=== PATIENT | male | born 1935 | race Caucasian/White ===

== ENCOUNTER 2019-01-25 12:49 | Inpatient (IN) | payer MEDICARE, OTHER ==
[~2019-01-25 12:49] MED LIST: ISOVUE-370 76%-LOCM 1 ML ONE; Iopamidol 370 76% 50 ML VIAL FS ONE
[2019-01-25 13:19] LABS: #Basophils 0.1 thou/uL (0.0-0.2); #Lymphocytes 0.2 thou/uL (1.20-3.40); #Monocytes 1.3 thou/uL (0.11-0.59); #Neutrophils 10.6 thou/uL (1.40-6.50); %Basophils 0.9 % (0.0-1.0); %Eosinophils 0.2 % (0.0-10.0); %Lymphocytes 1.9 % (21.0-51.0); %Monocytes 10.4 % (0.0-10.0); %Neutrophils 86.6 % (42.0-75.0); Hemoglobin 13.9 g/dL (14.0-18.0); Mean Corpuscular HGB CONC 32.7 g/dL (32.0-36.0); Mean Corpuscular Hemoglobin 30.9 pg (27.0-31.0); Mean Corpuscular Volume 94.6 fL (78.0-98.0); Platelet Count 173 thou/uL (130-400); RBC Distribution Width 13.7 % (11.5-14.5); Red Blood Cell (RBC) Count 4.49 mill/uL (4.70-6.10); White Blood Cell (WBC) Count 12.2 thou/uL (4.8-10.8)
[2019-01-25 13:35] LABS: ALT (SGPT) 34 U/L (8-55); AST (SGOT) 34 U/L (5-34); Albumin 4.1 g/dL (3.4-4.8); Alkaline Phosphatase 99 U/L (40-150); Anion Gap 15 mmol/L (10-20); BUN (Urea Nitrogen) 16 mg/dL (8.4-25.7); Bilirubin, Total 1.4 mg/dL (0.2-1.2); Calc. Creatinine Clearance 0 mL/min (70-130); Calcium 9.6 mg/dL (7.8-10.44); Carbon Dioxide 28 mmol/L (23-31); Chloride 102 mmol/L (98-107); Estimated GFR-MDRD 50; Globulin 2.6 g/dL (2.4-3.5); Glucose 117 mg/dL (83-110); Potassium 4.6 mmol/L (3.5-5.1); Protein, Total 6.7 g/dL (5.8-8.1); Sodium 140 mmol/L (136-145)
[2019-01-25 14:29] LABS: Bilirubin Negative (Negative); Blood, Urine Negative (Negative); Clarity CLEAR (Clear); Glucose, Urine (Dipstick) Negative (Negative); Leukocyte Moderate (Negative); Nitrite Negative (Negative); Protein, Urine (Dipstick) Trace mg/dL (Neg-Trace); Specific Gravity, Urine 1.021 (1.002-1.036)
[2019-01-25] MEDS ORDERED: Morphine 4 MG/ML VIAL ONE (14:31)
[2019-01-25 14:32] LABS: Bacteria/HPF 1+ HPF (None Seen); RBC/HPF 0-3 HPF (0-3); Squamous Epithelial None Seen HPF (0-3); WBC/HPF 21-50 HPF (0-3)
[2019-01-25 14:41] LABS: Hyaline Casts/LPF 4-6 HYALINE CAST LPF (0-3 Hyaline)
[2019-01-25] MEDS ORDERED: cefTRIAXone\\ROCEPHIN 1 GM VIAL ONE (15:35)
[2019-01-25] MEDS ORDERED: Metoclopramide HCl 10 MG/2 ML VIAL ONE ×2 (16:09→16:15)
--- NOTE | 2019-01-25 16:20 | CT ---
CT ABDOMEN AND PELVIS WITH IV CONTRAST 01/25/2019 CLINICAL INFORMATION: Left lower abdominal pain. History of colon cancer and colon resection COMPARISON: 05/05/2014 Technique: Multiple contiguous axial CT images are obtained through the abdomen and pelvis with IV contrast. Cor onal reformatted images are provided. FINDINGS: Lower Chest: Lungs are clear. There is dense calcification the mitral valve annulus. A small amount o f fluid is seen within the right lower posterior mediastinum. This. The evidence of a hiatal hernia with herniation of fat in the posterior mediastinum. This is a stable finding. Vessels: Vascular calcifications are seen abdominal aorta and involving the iliac arteries. Abdomen: Portal vein:Patent Gallbladder: Gallbladder is distended measuring 11 cm in length. No pericholecystic inflammatory swan ges are appreciated in the gallbladder wall is imperceptible on this exam. Liver: Several small subcentimeter too small to characterize hypodense lesions are seen also partiall y visualized the prior nonenhanced CT exam but were seen on the postcontrast a study on 12/26/2013 is statistically likely represent tiny cysts. Pancreas: within normal limits. Spleen: within normal limits. Adrenals: within normal limits. Kidneys: The right kidney demonstrates a subcentimeter too small to characterize hyperinflation later al aspect midportion right kidney also seen on prior study in 2013. There is moderate left hydronephrosis and hydroureter with several calculi seen within the mid left ureter. Most proximal calculus measures approximately 7 mm in greatest dimension. The most distal calculus measures 4 mm, and this is at the site of caliber change from a dilated proximal and mid ure ter to a normal caliber distal left ureter . There is left perinephric stranding present. Hypodense lesion within the mid portion left kidney is again seen most compatible with a cyst. Peritoneum: No ascites or free air; no fluid collection. Bowel: There is evidence of a total colectomy with Roberts's pouch seen. Right lower quadrant ostomy is identified. There is a stomal hernia with loops of small bowel herniated into the ostomy. No bowel obstruction is present. Mesentery and Retroperitoneum: No enlarged mesenteric or retroperitoneal lymph nodes. Abdominal Wall: Right lower quadrant ostomy with stomal hernia is present. There is midline defect in the ventral abdominal wall, this doesn't appear to be covered with peritoneum. Pelvis: Reproductive Organs: No pelvic masses. Pelvis within normal limits. Bladder: Partially distended and grossly normal in appearance. Bones: Multilevel degenerative changes in the lumbar spine IMPRESSION: 1. Moderate left hydronephrosis and tortuous dilated left ureter with multiple left ureteral calculi seen in the mid left ureter with obstruction at the level of the 4 mm calculus located at the junction of the mid and distal left ureter. 2. Left perinephric stranding. 3. Left renal cyst with subcentimeter too small to characterize hyperdense lesion right kidney. Next are stable subcentimeter hypodense lesions in the liver statistically likely represent cysts. 4. Evidence of colectomy with right lower quadrant ostomy with evidence of a stomal hernia containing lo ops of small bowel, but no small bowel obstruction is appreciated. 4. Small amount of fluid seen in the right aspect posterior mediastinum. There does appear to be maxine iation of fat from the mesentery into the posterior mediastinum.
[2019-01-25] MEDS ORDERED: Levofloxacin 500 mg/D5W 100 ml Premix Bag ONE (17:22)
[2019-01-25] MEDS ORDERED: Morphine 4 MG/ML VIAL SLOW IVP PRN (18:02)
[2019-01-25] MEDS ORDERED: Morphine 2 MG/ML SYRINGE SLOW IVP PRN (18:02)
[2019-01-25] MEDS ORDERED: Sodium Chloride 0.9% 1,000 ML IV SCH (18:15)
[2019-01-25 18:43] LABS: INR-International Normal Ratio 1.1; PTT 28.2 SEC (22.9-36.1); Prothrombin Time 13.8 SEC (12.0-14.7)
[2019-01-25] MEDS ORDERED: Acetaminophen 500 MG TAB ONE ×2 (18:45→18:46)
--- NOTE | 2019-01-25 18:52 | RAD ---
AP VIEW CHEST: 01/25/19 HISTORY: Right sided flank pain. AP view chest is obtained on 01/25/19. Comparison made to previous exam from 01/04/14. AP view chest demonstrates calcification and ectasia of the aorta. The lungs are well aerated. No moe dence of active intrathoracic disease seen. No evidence of effusions, pneumonia or pneumothorax seen. IMPRESSION: Unremarkable AP view chest. POS: [facility]
--- NOTE | 2019-01-25 18:54 | RAD ---
TWO VIEWS ABDOMEN 01/25/19 HISTORY: Preoperative abdominal radiograph. AP view abdomen is obtained. The abdominal gas pattern is nonspecific. The right ureter and kidney are visualized. The left dilat ed ureter is difficult to visualize but appears to be quite tortuous and dilated. Previously noted left ureteral calculi noted on CT from earlier in the day is not definitively visual ized. IMPRESSION: Continued difficulty in visualizing the dilated and tortuous left ureter. POS: [facility]
--- NOTE | 2019-01-25 19:09 | HP ---
PRIMARY CARE PHYSICIAN: . CHIEF COMPLAINT: "I started having severe left side pain last night." HISTORY OF PRESENT ILLNESS: Mr. Lee is a pleasant 83-year-old gentleman, who has a history of hypertension and hyperlipidemia. He was in his usual state of health until last night around 11:00 p.m., he says he woke up with the sudden onset of severe left flank pain. He says the pain got to be about a 10/10. He says he has had these pains off and on, but usually it will last a few hours and then go away especially if he would lay on his left side, but this time it did not. He also says he had some dry heaving with it as well and as a result, he came to the ER for evaluation. He had a CT scan done, which showed an obstructing left ureteral stone as well as some left perinephric stranding and urinalysis was consistent with urinary tract infection. He denies having any dysuria. No fevers, no chills, and no blood in the urine. His only other complaint is having some pain around his stoma, which he says is kind of like a burning sensation, but his bowels have been moving okay. REVIEW OF SYSTEMS: All systems were reviewed and are negative except for that mentioned in history of present illness. PAST MEDICAL HISTORY: Significant for hypertension, hyperlipidemia, atrial fibrillation, and colon cancer. PAST SURGICAL HISTORY: He said he has had a colon biopsy. He had a colectomy, but he says it was not from cancer. It was due to an infection. Also had an angioplasty in 1990. ALLERGIES: NO KNOWN DRUG ALLERGIES. SOCIAL HISTORY: He is . He has 4 children of his own and his has 4 children. He drinks about a glass or two wine a day. He is a former smoker, he quit in 1990. Prior to that he smoked for about 40 years and a pack per day. He would like to be a full code and his is his surrogate decision maker. FAMILY HISTORY: He said his mother had Meniere disease and also has a history of COPD in the family in one of his daughter and his other daughter had a massive IN, but she is still living. MEDICATIONS: Include aspirin 81 mg daily, atorvastatin 80 mg once a day, trazodone 150 mg one-half tablet daily, amiodarone 200 mg daily, Astelin nasal spray one spray intranasally twice a day, and pantoprazole 40 mg twice a day. PHYSICAL EXAMINATION: GENERAL: He is alert and oriented. He appears to be in no acute distress. He is well developed and well nourished. VITAL SIGNS: Blood pressure was 110/74, heart rate 75, respiratory rate of 18, and temperature is 98.2. HEENT: Pupils are equal, round, and reactive. Extraocular muscles are intact. His sclerae is anicteric. Throat; there is no erythema, no exudates. NECK: No adenopathy no bruits. LUNGS: They are clear to auscultation. There is no wheezing. No rales. No rhonchi. CARDIOVASCULAR: He had normal S1 and S2. I did not appreciate an S3 or S4. No murmurs, clicks, or rubs. ABDOMEN: Soft. He does have a midline ventral hernia as well as a hernia just lateral to his stoma. There was no induration or erythema. He has good bowel sounds bilaterally and there is no organomegaly. EXTREMITIES: He has no calf tenderness. No joint effusions. No edema. NEUROLOGIC: The exam is grossly nonfocal with his muscle strength being 5/5 in both his upper and lower extremities. SKIN AND INTEGUMENT: There is no skin changes. No rash. LABORATORY DATA: His white blood cell count is 12.12, hemoglobin 13.9, hematocrit is 42.4, and platelet count is 173. Sodium 140, potassium 4.6, chloride is 102, CO2 is 28, BUN of 16, creatinine 1.37, glucose is 117. Urinalysis shows moderate leukocyte esterase, 21 to 50 wbcs and 1+ bacteria and again his CT scan was significant for a left 4 cm ureteral stone. There is some evidence of hydronephrosis and this is an obstructing stone and there was some left perinephric stranding. PLAN/ASSESSMENT: 1. This is an 83-year-old gentleman, who presents to the emergency room with a left pyelonephritis, likely as a result of an obstructing left ureteral stone. He will be admitted to the Medical Service. He will be started on IV antibiotics. Likely we can begin with Levaquin and Rocephin. Cultures-should have been done from the emergency room and we will also consult Urology and he will be left n.p.o. in the event that he requires surgical extraction of the stone. 2. Hypertension. Since he will be n.p.o., we will be treating his blood pressure with p.r.n. medications. 3. Atrial fibrillation. He appears to not be on any anticoagulation. We will hold the amiodarone for now and start this once this is reasonable to restart. 4. He will be placed on DVT and GI prophylaxis. Job ID: [id number]
[2019-01-25] MEDS ORDERED: Acetaminophen 325 MG TAB PO PRN (20:44)
[2019-01-25] MEDS ORDERED: Ondansetron PF 4 MG/2 ML Vial IVP PRN (20:44)
[2019-01-25] MEDS ORDERED: Ondansetron ODT 4 MG TAB PO PRN (20:44)
[2019-01-25] MEDS ORDERED: hydrALAZINE 20 MG/ML VIAL SLOW IVP PRN (20:44)
--- NOTE | 2019-01-25 20:47 | CON ---
DATE OF CONSULTATION: 01/25/2019 REASON FOR CONSULTATION: Left ureteral calculi. HISTORY OF PRESENT ILLNESS: Mr. Lee is a pleasant 83-year-old male, who is followed by Dr. Romo. The patient lived locally, then moved out of area and presented for primary care establishment with Dr. Gonzales just few weeks ago. He presents with 1-day history of left flank pain. As he is known to have history of kidney stones, he felt that this was due to recurrence of his ureteral calculi, therefore presented to the emergency room. His pain initially is 10/10. The patient is currently resting very comfortably after pain medication provided with morphine 4 mg x1. He has been provided Levaquin and Rocephin by the emergency room. His vital signs are stable. He is afebrile, he is nontoxic appearing. He denies nausea, vomiting, fever, or chills. Denies gross hematuria. Denies obstructive urinary symptoms. His chart was reviewed in the [facility] ([place] system, he was previously followed by Dr. Potter for history of recurrent ureteral calculi. He has a history of distal ureteral stricture, likely due to compromised vascular supply from his prior colon surgery and required ureteral stent and staged ureteral dilatation, ureteroscopy, laser lithotripsy. This was performed back in 2011. PAST MEDICAL HISTORY: . Include coronary artery disease status post angioplasty. No prior stent. No prior SC. History of colon cancer, removed, status post resection with chemo in 1998 with no recurrence. 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 History of incisional ventral hernia, psoriasis, left ureteral stricture, with history of ureteral stones history of left colon stricture, arthritis, history of rib fractures, hidradenitis of the axilla. SURGICAL HISTORY: Includes sigmoid colon resection, status post chemo, six weeks, 1998; angioplasty one vessel, no SC in 1990; colonoscopy by Dr. Franco with known history of anastomotic stricture; polypectomy, 2011; EGD; esophageal stricture dilatation; colonoscopy, August 2013. [facility] system reviewed demonstrating he underwent in December [address] Potter, cysto retrograde ureteroscopy, laser lithotripsy, stent placement due to distal left ureteral stricture; February 2012, he underwent cystoscopy, ureteroscopy, laser lithotripsy, stent placement, dilation of ureteral stricture. FAMILY HISTORY: Positive for hearing loss. No history of diabetes. No history of prostate cancer. SOCIAL HISTORY: Denies tobacco abuse. Occasional liquor, scotch 6 to 9 ounces a day. He is , lives with his in a private residence. He smokes 20 to 25 cigarettes a day from 1954 to 1978. HOME MEDICATIONS: Include baby aspirin, trazodone 150 mg half a tablet per night, atorvastatin, propranolol, amiodarone 200 mg one p.o. daily, azelastine, tramadol. Prior history of Urocit-K b.i.d., and Zyrtec p.r.n. ALLERGIES: NO KNOWN DRUG ALLERGIES. REVIEW OF SYSTEMS: Ten-point review of systems as above, otherwise noncontributory. PHYSICAL EXAMINATION: VITAL SIGNS: Stable. He is afebrile. Blood pressure is 136/85, heart 75, and respiratory rate 20, no fever. GENERAL: The patient appears to be in no acute distress. HEENT: Grossly unremarkable. HEART: Regular rate. LUNGS: Clear. ABDOMEN: Soft, nontender, and nondistended. There is a significant ventral incisional hernia in the epigastric region, which is reducible with good fascial defect. Colostomy with stool and air. : Meatus is unremarkable. Testes are descended. RECTAL: CALEB is difficult due to his body habitus. No gross nodularity. However, CALEB is suboptimal. There is no CVA tenderness on physical exam. EXTREMITIES: No cyanosis, clubbing, or edema. PERTINENT LABORATORY DATA: White count 12, hemoglobin 13, and platelet 173; 86 segs. Creatinine is 1.37. Baseline creatinine is 1.0. PSA in October 2012 is 1.07. Calcium, normal limits 9.6. UA demonstrates yellow clear urine, moderate leukocyte, 0 to 3 rbc's, 20 to 50 wbc's, no epithelials, 1+ bacteria. Culture has been ordered. CT of the abdomen and pelvis with contrast dated January 25, 2019, demonstrates left hydroureteronephrosis, moderate. There are several calculi in the mid to distal ureter measuring largest 7 mm. There are approximately 3 to 4 other stones measuring 2 to 4 mm each. Distal ureter from the level of the stone is decompressed consistent with ureteral stricture history. The right kidney demonstrates no evidence of hydronephrosis or renal lithiasis. There are symmetric nephrogram on CT. Per my review, CT prostate volume is about 30 to 35 g. Mildred pouch, total colectomy noted. Left renal cyst, subcentimeter, too small to characterize. Hypodense lesion in the right kidney. Hypodense lesion of the left kidney compatible with cyst. IMPRESSION AND PLAN: Mr. Lee is a pleasant 83-year-old male with history of coronary artery disease, colon cancer, history of anastomotic stricture, status post diverting colostomy, presents with left flank pain due to mid to distal ureteral calculi with known history of ureteral stricture. History of calcium stones with history of ureteral stricture, status post dilatation ureteroscopy, [address] Potter. The patient presents due to flank pain, which is currently well controlled, he is nontoxic appearing. His prior urine culture in the remote past demonstrates Pseudomonas sensitive to quinolones and Zosyn, cefepime and ceftazidime. He has been provided Levaquin by the ER. We will continue to cover with broad-spectrum antibiotics. He is currently resting comfortably and has been added on for cysto retrograde stent dilatation of the stricture tomorrow. I did conference with Interventional Radiology, if unable to stent. He will undergo nephrostomy tube placement. We will hold aspirin for possible nephrostomy tube consideration if unable to stent. NPO after midnight. Job ID: [id number] [facility]
[2019-01-25] MEDS: Sodium Chloride 0.9% 1,000 ML IV SCH (21:30)
[2019-01-25 21:35] VITALS: BMI 30.4
[2019-01-26 04:42] LABS: Anion Gap 13 mmol/L (10-20); BUN (Urea Nitrogen) 17 mg/dL (8.4-25.7); Calc. Creatinine Clearance 50 mL/min (70-130); Calcium 8.6 mg/dL (7.8-10.44); Carbon Dioxide 23 mmol/L (23-31); Chloride 106 mmol/L (98-107); Estimated GFR-MDRD 48; Glucose 102 mg/dL (83-110); Potassium 4.1 mmol/L (3.5-5.1); Sodium 138 mmol/L (136-145)
[2019-01-26 05:07] LABS: Hemoglobin 11.5 g/dL (14.0-18.0); Lymphocytes 7 % (21-51); MDiff Complete? YES; Mean Corpuscular HGB CONC 32.8 g/dL (32.0-36.0); Mean Corpuscular Hemoglobin 31.3 pg (27.0-31.0); Mean Corpuscular Volume 95.5 fL (78.0-98.0); Mean Platelet Volume 8.5 fL (7.4-10.4); Monocytes 9 % (0-10); Neutrophil 84 % (42-75); Platelet Count 135 thou/uL (130-400); Platelet Morphology Comment Appears Adequate; RBC Distribution Width 13.7 % (11.5-14.5); Red Blood Cell (RBC) Count 3.66 mill/uL (4.70-6.10); White Blood Cell (WBC) Count 8.2 thou/uL (4.8-10.8)
[2019-01-26] MEDS: Sodium Chloride 0.9% 1,000 ML IV SCH ×3 (08:30→23:16)
[2019-01-26] MEDS ORDERED: Enoxaparin Sodium 40 MG/0.4 ML SYRINGE SC SCH (09:00)
--- NOTE | 2019-01-26 09:11 | PRG ---
DATE OF SERVICE: 01/26/2019 SUBJECTIVE: The patient states that his pain is adequately controlled. Denies chills. OBJECTIVE: VITAL SIGNS: T-max of 100, T-current 99, heart rate 82, respiratory rate 16, O2 saturation 93, blood pressure 104/58. ABDOMEN: Soft. No rigidity. No rebound. LABORATORY DATA: White count is decreased from 12 to 8, hemoglobin 11, 135 platelet, 84 segs. Creatinine is 1.4, yesterday 1.3. Coagulation profile is within normal limits. He is currently on Rocephin and Levaquin. I did hold his Lovenox this morning for cysto stent, possible nephrostomy tube, if unable to access his kidney as he has history of ureteral stricture. Blood culture negative thus far. Urine culture pending. Previous in 2014, had Pseudomonas in his urine, which was sensitive to Levaquin, ceftazidime, Zosyn. IMPRESSION AND PLAN: Mr. Lee is an 83-year-old male, previously followed by the [facility] for history of recurrent ureteral calculi with known history of left mid to distal ureteral stricture requiring dilatation in the past. He presents with multiple left mid ureteral calculi just proximal to the recurrent ureteral stricture measuring 7 mm, 3 to 4 other stones measuring 2 to 4 mm each. His UA suspicious for UTI, currently on Rocephin and Levaquin. He is n.p.o. for cysto, attempted stent placement, possible dilatation, possible nephrostomy tube. If unable to access to the ureter, via retrograde ,nephrostomy tube will be performed. Cardiology consultation for clearance as he will require laser lithotripsy, ureteroscopy for prolonged surgical general anesthesia time. He will requires urinary diversion to proceed today as he presents with infection and obstructing stone. The patient is n.p.o. Job ID: [id number] [facility]
[2019-01-26] MEDS ORDERED: Ondansetron PF 4 MG/2 ML Vial ONE (11:23)
[2019-01-26] MEDS ORDERED: PROPOFOL 200 MG/20 ML VIAL ONE (11:23)
[2019-01-26] MEDS ORDERED: Dexamethasone 20 MG/5 ML VIAL ONE (11:23)
[2019-01-26] MEDS ORDERED: PHENYLEPHRINE-NS 100 MCG/ML 10 ML SYRINGE ONE (11:23)
[2019-01-26] MEDS ORDERED: Succinylcholine Chloride 20 MG/ML 10 ml SYRINGE FS ONE (11:23)
[2019-01-26] MEDS ORDERED: Lidocaine 1% PF 5 ML VIAL ONE (11:23)
--- NOTE | 2019-01-26 12:54 | CON ---
DATE OF CONSULTATION: PRIMARY CARE DOCTOR: Dr. Gonzales, [address], [place]. PRIMARY HEAVY EQUIPMENT OPERATOR APPRENTICE: The patient's primary cloth tearer is going to be Alma Rosa Lyons MD UROLOGIST: The patient's urologist is Natalie Guillen DO REASON FOR CARDIOLOGY CONSULT: History of CAD and abnormal EKG. HISTORY OF PRESENT ILLNESS: Mr. Lee is a very present 83-year-old male with a significant history of coronary artery disease with angioplasty in the 1990, hypertension, hyperlipidemia, and colon cancer with colostomy. He was doing well until the night before yesterday, night of January 24. He started having pain at the left flank area and he was found to have a viral nephritis and the patient is going to have a procedure today by Dr. Guillen. Cardiology consult was ordered due to the 12-lead EKG show right bundle branch block. The patient has a history of coronary artery disease with angioplasty in 1990. He has seen a cloth tearer in [place], [place]. Last followup was two and half years ago. Since then, he moved to the [place], [place]. Since, he has not have any cardiac complaints, he have not found any cloth tearer here. He also had a history of postop atrial fibrillation with rapid ventricular response in 2015 when he had a colon resection for colon cancer. Since then, he has not had atrial fibrillation and he has been on the aspirin 81 mg once a day with amiodarone 200 mg once a day. He has had a stress test about 10 years ago, which was normal per the patient. Since last 3 months, he has not had any chest pain, heaviness, tightness, shortness of breath, dizziness, lightheadedness, or any other cardiac complaints. PAST MEDICAL HISTORY: 1. Hypertension. 2. Hyperlipidemia. 3. Postop atrial fibrillation in 2016. He has been on aspirin 81 mg. 4. Colon cancer. 5. Coronary artery disease with angioplasty in 1990. PAST SURGICAL HISTORY: Colon resection x2 in 1997 and 2015. Since then, he had a colectomy. He had a cataract surgery last Saturday. FAMILY HISTORY: The patient's one of the daughters has a myocardial infarction about 6 months ago at the age of 52. Otherwise, he does not have any significant cardiac related medical history in his family. SOCIAL HISTORY: He is . He has 4 children they are living well. He is an ex-smoker, quit in 1990. He has a few glass of wine every night. He does not do regular exercise, but he continue working at the [employer]. He drinks 1 cup of coffee a day. Otherwise, he does not take any caffeine daily. ALLERGIES: HE HAS NO KNOWN DRUG ALLERGIES. HOME MEDICATIONS: 1. Trazodone 75 mg once a day at night. 2. Protonix 40 mg once a day. 3. Azelastine 2 nasal spray every 6 hours as needed. 4. Atorvastatin 80 mg once a day. 5. Aspirin 81 mg once a day. 6. Amiodarone 200 mg once a day. 7. 1 tablet daily. REVIEW OF SYSTEMS: A 12-point review of systems was negative unless otherwise mentioned in the HPI. The patient has an intermittent lightheadedness when he get up quick. PHYSICAL EXAMINATION: VITAL SIGNS: Blood pressure 107/58, temperature 98.5, pulse is 75, respiratory rate 18, and O2 saturation 93% with room air. GENERAL: The patient is alert and oriented x4, not in acute distress. The patient denied any pain at this moment. HEENT: Head, normocephalic and atraumatic. Eyes, extraocular muscle movement intact. ENT and mouth, oral and nasal mucosa moist without lesion. NECK: Supple. Normal range of motion. No JVD. RESPIRATORY: Clear to auscultate bilaterally. No wheezing, rales, or rhonchi noted. CARDIOVASCULAR: Regular rate and rhythm. Normal S1 and S2. There are no S3 or S4. No significant murmur, hives, or thrills noted. 2+ pulses in bilateral upper and lower extremities. No edema in lower extremities. ABDOMEN: Bowel sounds are present. The patient had a colectomy in right lower quadrant. SKIN: Warm and dry. No lesion, rash, erythema noted. MUSCULOSKELETAL: The patient able to move all extremities without difficulty. The patient denied any claudication. NEUROLOGIC: The patient is alert and oriented x4. Nonfocal. PSYCHIATRIC: The patient's mood is appropriate. LABORATORY DATA: WBC 8.2, hemoglobin 11.5, hematocrit 34.9, and platelet 135. PT of 13.8 and INR 1.1. Sodium 138, potassium 4.1, BUN 17, creatinine 1.42, AST 34, ALT 34, lipase 13. Urinalysis showing moderate wbc and urine bacteria, hyaline cast and the patient's 12-lead EKG shows normal sinus rhythm with right bundle branch block with heart rate of 77 beats. Chest x-ray shows no acute cardiopulmonary change. ASSESSMENT AND PLAN: 1. Pyelonephritis. The patient is going to have this procedure by Dr. Guillen today around noon. The patient has been n.p.o. The patient has denied any pain or discomfort to his abdomen. He has been on the IV antibiotic and also he is on normal saline 100 mL an hour. 2. Right bundle branch block. He has not seen any cloth tearer here in [facility]. More than two years, there were no EKG comparison, EKG prior to this 12-lead EKG. At this moment, the patient denied any cardiac complaints. Since he had a stress test about 10 years ago, he may be beneficial for him to have another stress test as outpatient to check the patient's cardiac status in this moment. 3. Coronary artery disease with a history of angioplasty in 1990. He has a stress test about 10 years ago showed normal. He has been on aspirin and atorvastatin, but not beta debbie at this moment, possible due to hypotension. We would like to continue to monitor. 4. History of postop atrial fibrillation with rapid ventricular response in 2016. Per the patient, he has not had any atrial fibrillation since then, 12-lead EKG this time in this admission showed a sinus rhythm. We would like to continue to monitor, but we would like to resume aspirin 81 mg once a day with amiodarone 200 mg once a day, once the patient is cleared by urologist. 5. Hypertension. At this moment, the patient is hypotensive, although the patient is not on any blood pressure medicine. We would like to continue to monitor. 6. Acute kidney injury insufficiency. He denies any doctor told him he has any kidney issue before, so possible this is due to the mild dehydration. We would like to continue to monitor at this moment. Thank you very much for Cardiology Service to participate in the care of this patient. We will follow along the patient's care team and make further recommendations as appropriate. Job ID: [id number]
[2019-01-26] MEDS ORDERED: Fentanyl 100 MCG/2 ML VIAL ONE (14:03)
[2019-01-26] MEDS ORDERED: cefTRIAXone\\ROCEPHIN 1 GM VIAL ONE (14:10)
[2019-01-26] MEDS ORDERED: Sodium Chloride 0.9% 100 ML ONE (14:10)
[2019-01-26] MEDS ORDERED: Lidocaine 2% Jelly 5 ML TUBE ONE (14:13)
[2019-01-26] MEDS ORDERED: Iothalamate Meglumine 60% 50 ML VIAL FS ONE (14:13)
[2019-01-26] MEDS ORDERED: cefTRIAXone\\ROCEPHIN 1 GM in Sodium Chloride 0.9% 100 ML IVPB SCH (15:00)
[2019-01-26] MEDS ORDERED: Hyoscyamine Sulfate SL 0.125 mg Tablet ONE (15:12)
[2019-01-26] MEDS ORDERED: Promethazine HCl 25 MG/ML VIAL SLOW IVP PRN (15:13)
[2019-01-26] MEDS ORDERED: Ondansetron HCl/PF 4 MG/2 ML Vial IVP PRN (15:13)
[2019-01-26] MEDS ORDERED: Promethazine HCl 25 MG/ML VIAL IM PRN (15:13)
[2019-01-26] MEDS ORDERED: HYDROcodone/Acetaminophen 5/325 mg Tablet PO PRN ×2 (15:15)
--- NOTE | 2019-01-26 15:15 | RAD ---
EXAM: XR IVP Retrograde PROVIDED CLINICAL HISTORY: Left hydronephrosis and hydroureter in a patient with left ureteral calculi and history of ureteral s trictures. COMPARISON: CT abdomen on 01/25/2019 FINDINGS/IMPRESSION: 5 intraoperative fluoroscopic images of the abdomen are provided. The mid left ureteral calculi are d ifficult to evaluate on fluoroscopic training and development officer image. Subsequent images demonstrate surgical instrument overlying the urinary bladder with catheter present within the left ureter. Left retrograde urogram d emonstrates dilatation of the ureter proximal to the level of the lower sacroiliac joint with moderate degree of left hydronephrosis. No contrast is seen within the distal left ureter. Final imag e demonstrates a ureteral stent in place with proximal portion overlying the left renal collecting system and distal portion overlying the urinary bladder. Correlation with intraoperative findings is recommended.
--- NOTE | 2019-01-26 15:34 | PDOC.CTH ---
Cardiology Progress Note - Objective Vital Signs Temp Pulse Resp BP Pulse Ox 01/26/19 08:00 93 L 01/26/19 07:35 98.5 F 75 18 107/58 L 93 L Admit Weight 194 lb 4 oz Weight 194 lb 4 oz 01/25/19 01/26/19 01/27/19 06:59 06:59 06:59 Output Total 275 Balance -275 - Labs Result Diagrams: 01/26/19 03:50 01/26/19 03:50 - Assessment/Plan <Addendum> The pt will f/u with Dr Lyons' office within 1 wk with Stress test same day.
[2019-01-26] MEDS: Tamsulosin HCl 0.4 MG CAP PO SCH (16:19)
--- NOTE | 2019-01-26 17:13 | PDOC.PN ---
- Subjective Encounter Start Date: 01/26/19 Encounter Start Time: 17:09 Mr. Lee was seen today in follow-up of Nephrolithiasis and Pyelonephritis. He says he feels fine. He is sitting up in bed eating. He denies any pain. He denies chest pain or shortness of breath. - Objective Resuscitation Status - Order Detail: 01/25/19 17:38 Resuscitation Status Routine Resuscitation Status: FULL: Full Resuscitation MAR Reviewed: Yes Vital Signs & Weight: Vital Signs (12 hours) Temp Pulse Resp BP Pulse Ox 01/26/19 16:30 97.5 F L 70 18 140/65 96 01/26/19 16:00 97.6 F 73 16 139/72 92 L 01/26/19 08:00 93 L 01/26/19 07:35 98.5 F 75 18 107/58 L 93 L Weight Admit Weight 194 lb 4 oz Weight 194 lb 4 oz I&O: 01/25/19 01/26/19 01/27/19 06:59 06:59 06:59 Output Total 275 Balance -275 Result Diagrams: 01/26/19 03:50 01/26/19 03:50 Phys Exam - Physical Examination HEENT: PERRLA Respiratory: no wheezing, no rales, no rhonchi, clear to auscultation bilateral Cardiovascular: RRR, no significant murmur, no rub Gastrointestinal: soft, non-tender, no distention, positive bowel sounds Musculoskeletal: no edema Dx/Plan (1) Pyelonephritis Code(s): N12 - TUBULO-INTERSTITIAL NEPHRITIS, NOT SPCF ACUTE OR CHRONIC Status: Acute (2) Nephrolithiasis Status: Acute (3) Hypertension Code(s): I10 - ESSENTIAL (PRIMARY) HYPERTENSION Status: Chronic (4) Atrial fibrillation Code(s): I48.91 - UNSPECIFIED ATRIAL FIBRILLATION Status: Chronic - Plan * Pyelonephritis- continue Levaquin and Rocephin- urine culture is growing presumptive Pseudomonas * Nephrolithiasis- he is s/p ureteral STENT placement * HTN-blood pressure is stable. * AFIB- heart rate is stable
[2019-01-26] MEDS ORDERED: Promethazine 25 MG TAB PO PRN (18:05)
--- NOTE | 2019-01-26 21:35 | OP ---
DATE OF PROCEDURE: 01/26/2019 PREOPERATIVE DIAGNOSES: 1. An 83-year-old male with history of urolithiasis, previously followed by Dr. Wagoner, and left ureteral stricture presents with left flank pain. 2. CT demonstrating multiple left ucy-do-mxhnxr ureteral calculi focus about 4, measuring 8 mm, 5 mm, 4 mm, and 3 mm respectively, recurrent ureteral stricture postop index number. 3. Urinalysis suspicious for urinary tract infection. Culture pending. POSTOPERATIVE DIAGNOSES: 1. An 83-year-old male with history of urolithiasis, previously followed by Dr. Wagoner, and left ureteral stricture presents with left flank pain. 2. CT demonstrating multiple left yka-xr-laopsf ureteral calculi focus about 4, measuring 8 mm, 5 mm, 4 mm, and 3 mm respectively, recurrent ureteral stricture postop index number. 3. Urinalysis suspicious for urinary tract infection. Culture pending. PROCEDURES: 1. Cystoscopy. 2. Left retrograde pyelogram. 3. A 6 x 30 double-J ureteral stent placement. SURGEON: Natalie Guillen DO ANESTHESIA: General. COMPLICATIONS: None apparent. DISPOSITION: To recovery room in stable condition. INDICATIONS FOR PROCEDURE AND HISTORY: Mr. Lee is an 83-year-old male who presented to the emergency room due to left flank pain. His UA was suspicious for UTI. He has been on Levaquin, Rocephin, and he is hemodynamically stable. He has mild renal insufficiency with a creatinine of 1.4. He presents today for cysto and left ureteral stent placement. As he is known to have a ureteral stricture again visualized on recent CT scan, he was informed if I am unable to perform retrograde stent, nephrostomy tube will be performed. He desires to proceed. Elective ureteroscopy laser lithotripsy after treatment of his UTI with negative urine culture was advised. I did initiate cardiology consult as he is known to have coronary artery disease. Risks, complications and indications for the patient was reviewed including but not limited to, bleeding, pain, infection, injury to adjacent organs, urosepsis. DESCRIPTION OF PROCEDURE: After an informed consent and sign, the patient taken to the operating room, placed in a dorsal lithotomy position with the genital area prepped and draped in the usual surgical sterile fashion. Bilateral IRVIN hose and SCDs were provided. Broad-spectrum antibiotics were given. A 21-Niuean cystoscope was utilized for cystoscopy, which demonstrated normal anterior posterior urethra. 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 Bladder was entered, which demonstrated normal bladder mucosa. The right UO was easily identified. The left UO was difficult to identify. This is consistent with history of distal ureteral stricture. The UO was very subtle, however with observation, we were able to certainly identify the left UO and a 0.35 Sensor wire was negotiated. This did pass without significant issue to the sqa-jh-vedflbtj ureter and we were able to pass an open-ended catheter proximal to the stricture. There was some resistance proximally consistent with a tortuous proximal ureter. A retrograde pyelogram had to be performed to delineate the collecting system and a tortuous J hooking of the proximal ureter. We did pass a 0.35 Sensor wire , required manipulation, able to pass the wire into the upper pole. The open-ended catheter was passed to the level of the renal pelvis. Despite putting an open-ended catheter, the corkscrewing remained in morphology. A 6 x 30 double-J ureteral stent was passed as the ureteral length appeared to be long due to tortuosity and chronic dilatation. A 6 x 30 double-J ureteral stent was passed and the proximal coil was seen in the upper pole and the distal coil with adequate redundancy in the bladder. I did place a 16-Niuean Waters catheter to gravity, but had bladder drainage. If no issues overnight, we will remove Waters in the morning. He is to continue his antibiotic regimen until final culture sensitivity identified. He is known to have coronary artery disease, right bundle-branch block, status post angioplasty, cardiac clearance, is advised to proceed with ureteroscopy, laser lithotripsy as he will require longer general anesthesia time. Job ID: [id number] [facility]
[2019-01-26] MEDS: traZODone HCl 150 MG TAB PO PRN (23:35)
[2019-01-27 04:34] LABS: #Lymphocytes 0.4 thou/uL (1.20-3.40); #Monocytes 0.4 thou/uL (0.11-0.59); #Neutrophils 4.3 thou/uL (1.40-6.50); %Eosinophils 0.4 % (0.0-10.0); %Lymphocytes 7.2 % (21.0-51.0); %Monocytes 8.6 % (0.0-10.0); %Neutrophils 83.9 % (42.0-75.0); Mean Corpuscular HGB CONC 33.2 g/dL (32.0-36.0); Mean Corpuscular Volume 96.4 fL (78.0-98.0); Mean Platelet Volume 8.7 fL (7.4-10.4); Platelet Count 121 thou/uL (130-400); RBC Distribution Width 13.5 % (11.5-14.5); Red Blood Cell (RBC) Count 3.44 mill/uL (4.70-6.10); White Blood Cell (WBC) Count 5.2 thou/uL (4.8-10.8)
[2019-01-27 04:47] LABS: Anion Gap 12 mmol/L (10-20); BUN (Urea Nitrogen) 15 mg/dL (8.4-25.7); Calc. Creatinine Clearance 69 mL/min (70-130); Calcium 8.6 mg/dL (7.8-10.44); Carbon Dioxide 24 mmol/L (23-31); Chloride 107 mmol/L (98-107); Estimated GFR-MDRD 69; Glucose 119 mg/dL (83-110); Potassium 4.3 mmol/L (3.5-5.1); Sodium 139 mmol/L (136-145)
--- NOTE | 2019-01-27 07:43 | CON ---
DATE OF CONSULTATION: 01/26/2019 ADDENDUM: INDICATION FOR CONSULTATION: An 83-year-old patient with a history of coronary artery disease, who needs to undergo lithotripsy who was found to have a right bundle-branch block of uncertain duration. Please refer to the notes already dictated by my nurse practitioner. This is a very pleasant gentleman who underwent angioplasty to some coronary in 1990. He said he has had no problems since that time. He does complain of some shortness of breath. He denies chest pain. He has had no recent stress test or echocardiogram. He was seen and was found to have nephrolithiasis, was advised to undergo lithotripsy. In the interim, he was noted to have a right bundle-branch block. We were advised to see him. He has risk factors for coronary artery disease, which include hypertension, hypercholesterolemia, and also he has smoked in the past, but stopped in 1990. Previous to that he smoked 1-1/2 packs per day for about 40 years. He continues to remain very active. He works doing maintenance at a [employer] and he only complains of some shortness of breath with increased fatigue and back pain, but no chest discomfort. Otherwise, he has been doing very well for someone of 83 years old, but still would advise that he undergo some type of stress testing and echocardiogram since one has not been performed percent for several for some years now. Otherwise, I would agree with the assessment and plan as noted by the nurse practitioner. PHYSICAL EXAMINATION: GENERAL: Reveals a well-developed, well-nourished, very pleasant elderly gentleman. VITAL SIGNS: His blood pressure is 140/75. He is afebrile, heart rate is 78 and regular, O2 saturations are 93% and his respiratory rates are 16 per minute. HEENT: Shows head to be normocephalic and atraumatic. Carotid pulses are present. I do not hear any bruits. LUNGS: He actually had expiratory wheezing in both bases. CARDIOVASCULAR: He had a regular rate and rhythm. He had a soft systolic murmur of the aortic area compatible with most likely aortic valve sclerosis. ABDOMEN: Soft and nontender. No significant abnormalities were noted. EXTREMITIES: Show no clubbing, cyanosis, or edema. Pedal pulses are present. NEUROLOGICAL: He appears to be intact with normal strength and normal tone. LABORATORY DATA: Shows a WBC of 8.2, previously was 12.2, hemoglobin is 11.5, and platelet count of a 135,000. His creatinine was 1.37, increased up to 1.42 with a BUN of 17. Sodium was 138 with a potassium of 4.1. He also had a mild urinary tract infection. His EKG shows a sinus rhythm with a right bundle-branch block, but no other acute changes were noted. IMPRESSION: 1. Elderly gentleman with a history of coronary artery disease. He underwent angioplasty in 1990 and since that time has remained stable, but he has had no recent stress test or echocardiogram prior to undergoing general anesthesia and lithotripsy. I would advise him to undergo at least echocardiogram and stress testing. He did have a nuclear study many years ago, but does not remember when, but we will schedule this as an outpatient. It is not urgent at this time. The patient has scheduled a lithotripsy sometime in February. 2. History of hypertension. This appears to be under good control at this time. We would agree with his present management. 3. History of hypercholesterolemia. He can continue on his statin medications. Also would continue on 81 mg of aspirin for his coronary artery disease. I would be more than happy to continue to follow the patient with you. We will arrange for these studies as an outpatient. Job ID: [id number]
[2019-01-27] MEDS: Tamsulosin HCl 0.4 MG CAP PO SCH (08:06)
[2019-01-27] MEDS: Amiodarone 200 MG TAB PO SCH (08:06)
[2019-01-27] MEDS: Atorvastatin Calcium 40 MG TAB PO SCH (08:06)
[2019-01-27] MEDS: Aspirin 81 mg Enteric Coated Tablet PO SCH (08:10)
[2019-01-27] MEDS ORDERED: Aspirin 81 mg Enteric Coated Tablet PO SCH (09:00)
--- NOTE | 2019-01-27 09:39 | PRG ---
DATE OF SERVICE: 01/27/2019 SUBJECTIVE: The patient without complaints. States that he feels well. OBJECTIVE: VITAL SIGNS: Stable. He is afebrile. I's and O's, urine output 1225 of rachell red tinged urine. ABDOMEN: Soft, nontender, nondistended. PERTINENT LABORATORY DATA: White count 5, hemoglobin 11, platelets 121. Coags within normal limits. Creatinine decreased to his baseline from 1.3, 1.4 to 1.0 , status post stent. Urine culture preliminary demonstrates Pseudomonas, on Levaquin. IMPRESSION AND PLAN: Mr. Lee is an 83-year-old male, who presented with multiple left ureteral calculi with hydronephrosis, known history of ureteral stricture, status post cysto, left retrograde, 6 x 30 stent. The patient will need to be observed until his final culture is finalized for outpatient antibiotic therapy. Repeat urinalysis culture in few days. If negative, we will proceed with ureteroscopy in 2 to 3 weeks. Cardiology consultation in-house is advised. Workup in progress. Discussed with Dr. Vail. Echocardiogram will be obtained in house , stress test will be coordinated with cardiology for sometime next week. We'll see me February 11, with repeat urine culture. We'll proceed with ureteroscopy laser lithotripsy with urine culture negative, final cardiac clearance obtained. Job ID: [id number] [facility]
--- NOTE | 2019-01-27 11:00 | PDOC.PN ---
- Subjective Encounter Start Date: 01/27/19 Encounter Start Time: 10:40 Follow up nephrolithiasis/pyelo. Standing up, trying to urinate, slow but with some success. No nausea or vomiting. No CP/SOB. No fever. - Objective Resuscitation Status - Order Detail: 01/25/19 17:38 Resuscitation Status Routine Resuscitation Status: FULL: Full Resuscitation Vital Signs & Weight: Vital Signs (12 hours) Temp Pulse Resp BP Pulse Ox 01/27/19 08:15 98.0 F 72 18 126/74 93 L 01/27/19 03:25 98.6 F 64 16 121/73 92 L 01/26/19 23:18 98.7 F 68 16 134/71 92 L Weight Admit Weight 194 lb 4 oz Weight 194 lb 4 oz I&O: 01/26/19 01/27/19 01/28/19 06:59 06:59 06:59 Intake Total 1800 Output Total 1500 250 Balance 300 -250 Result Diagrams: 01/27/19 04:00 01/27/19 04:00 Phys Exam - Physical Examination Constitutional: NAD HEENT: PERRLA Neck: supple, full ROM Respiratory: clear to auscultation bilateral Cardiovascular: irregular Gastrointestinal: soft, non-tender Musculoskeletal: no edema Neurological: non-focal, moves all 4 limbs Psychiatric: normal affect, A&O x 3 Skin: no rash Dx/Plan (1) CAD (coronary artery disease) Code(s): I25.10 - ATHSCL HEART DISEASE OF [place] CORONARY ARTERY W/O ANG PCTRS Status: Acute (2) RBBB Code(s): I45.10 - UNSPECIFIED RIGHT BUNDLE-BRANCH BLOCK Status: Acute (3) Nephrolithiasis Status: Acute (4) Pyelonephritis Code(s): N12 - TUBULO-INTERSTITIAL NEPHRITIS, NOT SPCF ACUTE OR CHRONIC Status: Acute (5) Hypertension Code(s): I10 - ESSENTIAL (PRIMARY) HYPERTENSION Status: Chronic - Plan * ID - Pseudomonas aeruginosa, susceptible to oral Cipro. Levaquin/Rocephin presently, can likely de-escalate to levaquin alone based on data. Urine culture ordered to begin process of evaluating for clearance of bacteruria. * Cards - RBBB, for outpt echo, stress test per Dr. Lyons. Continue statin. Resume ASA when ok with urology. BP controlled. Sinus rhythm on EKG. * Nephrolithiasis - Multiple left ureteral calculi with hydronephrosis, s/p ureteral stent with plans for ureteroscopy in 2-3 weeks.
[2019-01-27] MEDS: Sodium Chloride 0.9% 1,000 ML IV SCH ×2 (11:05→22:56)
[2019-01-27] MEDS: BESIVANCE L EYE SCH (20:46)
[2019-01-27] MEDS: DUREZOL L EYE SCH (20:47)
[2019-01-28] MEDS: traZODone HCl 150 MG TAB PO PRN (01:02)
[2019-01-28 08:34] VITALS: BP 156/70; TEMP 97.4
[2019-01-28] MEDS: Atorvastatin Calcium 40 MG TAB PO SCH (08:43)
[2019-01-28] MEDS: Aspirin 81 mg Enteric Coated Tablet PO SCH (08:43)
[2019-01-28] MEDS: DUREZOL L EYE SCH (08:44)
[2019-01-28] MEDS: Amiodarone 200 MG TAB PO SCH (08:44)
[2019-01-28] MEDS: Tamsulosin HCl 0.4 MG CAP PO SCH (08:44)
[2019-01-28] MEDS: BESIVANCE L EYE SCH (08:44)
[2019-01-28] MEDS: Sodium Chloride 0.9% 1,000 ML IV SCH (08:45)
[2019-01-28] MEDS ORDERED: PROLENSA L EYE SCH (09:00)
--- NOTE | 2019-01-28 13:29 | PDOC.CTH ---
Cardiology Progress Note - Subjective The pt seen and examined. No overnight events. No cardiac complaints. - Objective Vital Signs Temp Pulse Resp BP Pulse Ox 01/28/19 08:00 97.4 F L 70 20 156/70 H 94 L Admit Weight 194 lb 4 oz Weight 194 lb 4 oz 01/27/19 01/28/19 01/29/19 06:59 06:59 06:59 Intake Total 1800 760 Output Total 1500 1104 475 Balance 300 -344 -475 - Physical Examination General/Neuro: alert & oriented x3 Neck: no JVD present Lungs: CTA Heart: RRR Abdomen: soft Extremities: other: (No edema) - Labs Result Diagrams: 01/27/19 04:00 01/27/19 04:00 - Assessment/Plan 1. multiple Lt ureteral calculi Hydronephrosis with s/p Cysto, Lt retrograde stent - stable; will undergo ureteroscopy within 2-3wks (02/11/2019) if negative UA/culture. 2. CAD with angioplasty (no stent) in 1990 - stable; 3. RBBB - asymptomatic; Stress test within 1wk as outpt 4. HTN - stable 5. Hyperlipidemia - 6. OBDULIA - improved 7. Post-op Afib in 2016 - On Amiodarone 200mg qd and ASA 81mg qd. MAR reviewed * Echo on 01/28/2019 with EF 50-55%, mod dilated LA, mild MR, mild-mod AR, trace TR, adn mild [place]. Review of Systems - Review of Systems Constitutional: reports: no symptoms reported EENTM: reports: no symptoms reported Respiratory: reports: no symptoms reported Cardiac (ROS): reports: no symptoms reported ABD/GI: reports: no symptoms reported : reports: no symptoms reported Musculoskeletal: reports: no symptoms reported Skin: reports: no symptoms reported
--- NOTE | 2019-01-28 15:56 | PRG ---
DATE OF SERVICE: 01/28/2019 SUBJECTIVE: The patient without complaints, desires to be discharged. OBJECTIVE: VITAL SIGNS: Stable. He is afebrile. Is and Os are 1100 of urine out. ABDOMEN: Soft, morbidly obese, nontender, nondistended. No CVA tenderness. PERTINENT LABORATORY DATA: On January 27, 2019, white count of 5.2, hemoglobin of 11, platelet of 121. Coagulation profile within normal limits. Creatinine is 1.0. Admitting creatinine of 1.3. Urine culture demonstrating Pseudomonas, pansensitive, sensitive to quinolones, cefepime, Zosyn, tobramycin. He is currently on Levaquin. IMPRESSION AND PLAN: Mr. Lee is an 83-year-old male, presented with multiple left ureteral calculi, hydronephrosis, known history of ureteral stricture, history of Pseudomonas urinary tract infection, positive urine culture on this admission, status post stent which he tolerated. Cardiology workup in progress. He has had an echocardiogram demonstrating normal EF, diastolic dysfunction. I did speak to Dr. Lyons regarding the patient's case. She will schedule an outpatient followup to proceed with stress testing. If that is negative, we will proceed with surgery. He has a followup appointment with me on February 11. If repeat urine culture negative, we will proceed with ureteroscopy, laser lithotripsy, stent exchange. From Urologic perspective, the patient maybe discharged home with Flomax, Myrbetriq 50 mg one p.o. daily, ciprofloxacin 500 mg 1 p.o. b.i.d. until followup with . Job ID: [id number] [facility]
--- NOTE | 2019-01-29 07:03 | DIS ---
DATE OF ADMISSION: 01/25/2019 DATE OF DISCHARGE: 01/28/2019 PRINCIPAL DIAGNOSES ON ADMISSION: 1. Severe left flank pain. 2. Hypertension. 3. Paroxysmal atrial fibrillation. DISCHARGE DIAGNOSES: 1. Pseudomonas aeruginosa urinary tract infection, in the context of nephrolithiasis with multiple left ureteral calculi with hydronephrosis, status post urethral stent, plans for ureteroscopy in 2-3 weeks. 2. Right bundle-branch block, chronic. 3. Paroxysmal atrial fibrillation, postoperative atrial fibrillation in 2015, present normal sinus rhythm. 4. Dyslipidemia. 5. Previous history of colon cancer. 6. Coronary artery disease with angioplasty (no stent) in 1990, stable. CONSULTS DURING HOSPITAL STAY: 1. Urology, Natalie Guillen DO. 2. Cardiology, Alma Rosa Lyons MD. STUDIES/PROCEDURES: 1. Abdomen/pelvis CT, 01/25/2019, moderate left-sided hydronephrosis and tortuous dilated left ureter with multiple left ureteral calculi in the mid left ureter with obstruction at the level of 4 mm calculus located at the junction of mid and distal left ureter. Left perinephric stranding. Left renal cyst. Small amount of fluid seen, right aspect, posterior mediastinum. 2. 01/26/2019, procedure, cystoscopy/placement of stent, left ureter, ureteroscopy, under the care of Dr. Guillen. 3. 2D echocardiogram, ejection fraction normal at 55%. Diastolic dysfunction suggested. Normal left ventricular size and function. Left atrium normal size. Normal right atrial size. No valvular vegetations. Mild aortic stenosis. 4. Urine culture, Pseudomonas aeruginosa, sensitive to fluoroquinolones, culture collected, 01/25/2019. Repeat culture, 01/27/2019, urine culture, no growth at 24 hours. HOSPITAL COURSE: Mr. Lee is a delightful 83-year-old gentleman, admitted on 01/25/2019 with sharp severe left-sided flank pain. Previous medical history includes essential hypertension, dyslipidemia, as well as paroxysmal atrial fibrillation, on chronic amiodarone therapy. He noted intermittent severe pain, left-sided, associated with some nausea. CT noting obstructing left ureteral stone with perinephric stranding. He was subsequently admitted to the hospital for additional evaluation and care. He was seen evaluated by Dr. Guillen from Urology. He is noted to have a previous history of kidney stone, this was felt to be recurrence. Previous history as well of ureteral stricture status post dilatation, ureteroscopy [place] [address] Potter. He underwent cystoscopy on 01/26/19, left retrograde pyelogram, and placement of a 6 x 30 double-J ureteral stent. Additionally, he was seen and evaluated by the cardiology team, noted to have a right bundle-branch block on EKG. Previous history of coronary artery disease with angioplasty in 1990. Also, previous history of postoperative paroxysmal atrial fibrillation in 2016 following colon resection for colon cancer, no recurrence. Presently on aspirin 81 mg per day and amiodarone 200 mg per day. He was seen and evaluated by cardiology team, with plans for outpatient stress test to be arranged by Dr. Lyons in the office. The patient has continued to do well. Initial leukocytosis present with a white blood cell count of 12.2, this defervesced to 5.2. Hemoglobin at the time of discharge is 11.0. Chemistry panel notable for elevated creatinine of 1.42 at that time early in the hospitalization, with an interval improvement to 1.03 prior to discharge. At the time of discharge, he is awake and alert, comfortable in his room. His lungs are clear to auscultation bilaterally. Heart is regular rate and rhythm. Abdomen is soft and nontender. He has no flank pain on palpation. The plan of care is for ureteroscopy in 2 to 3 weeks, provided the urine culture sent yesterday remains negative. DISCHARGE INSTRUCTIONS: Location: Discharge is to home. Followup: 1. Cardiology, Dr. Lyons, outpatient stress test. 2. Urology, Natalie Guillen, 02/11/2019, 2:30 p.m. 3. Primary care physician, Dr. Becky Gonzales, followup after aforementioned appointments are completed. Activity: As tolerated. Diet: Regular Medications: New medications include; 1. Ciprofloxacin 500 mg p.o. twice daily for 21 days, prescription provided for [address] Guillen. 2. Myrbetriq 50 mg p.o. daily, provided by Dr. Guillen. 3. Flomax 0.4 mg p.o. daily, provided by Dr. Guillen. Medication note: I have asked the patient to continue to hold his aspirin, as urology procedure is planned fairly soon. Other home medications to be resumed include; 1. Amiodarone 200 mg p.o. once daily. 2. Atorvastatin 80 mg p.o. once daily. 3. Trazodone 75 mg p.o. at bedtime. 4. Astelin 2 sprays nasally as needed for allergic rhinitis. 5. Besifloxacin one drop to left eye twice daily. 6. Bromfenac ophthalmologic drops applied daily. 7. Durezol 5 mL ophthalmic solution one drop to left eye b.i.d. 8. Pantoprazole 40 mg p.o. once daily. 9. Complex B vitamin p.o. daily. TIME SPENT: Total time spent on discharge, 40 minutes. Job ID: [id number] [facility]
== END 2019-01-28 16:04 | disposition home or self-care (01) | DRG 661 ==
LOC: ERS 12:49 → ONC 19:44
PROVIDERS: ADMIT Internal Medicine; ATTEND Internal Medicine
PROC: 0T778DZ Dilation of Left Ureter with Intraluminal Device, Via Natural or Artificial Opening Endoscopic (ICD-10-PCS; principal; 2019-01-26)
PROC: BT1FYZZ Fluoroscopy of Left Kidney, Ureter and Bladder using Other Contrast (ICD-10-PCS; 2019-01-26)
DX: N13.6 Pyonephrosis (principal); I10 Essential (primary) hypertension; N17.9 Acute kidney failure, unspecified; N12 Tubulo-interstitial nephritis, not specified as acute or chronic; E78.5 Hyperlipidemia, unspecified; I48.91 Unspecified atrial fibrillation; I25.10 Atherosclerotic heart disease of native coronary artery without angina pectoris; I45.10 Unspecified right bundle-branch block; B96.5 Pseudomonas (aeruginosa) (mallei) (pseudomallei) as the cause of diseases classified elsewhere; E78.00 Pure hypercholesterolemia, unspecified; N40.0 Benign prostatic hyperplasia without lower urinary tract symptoms; Z79.82 Long term (current) use of aspirin; Z87.891 Personal history of nicotine dependence; Z85.038 Personal history of other malignant neoplasm of large intestine; Z79.899 Other long term (current) drug therapy; Z90.49 Acquired absence of other specified parts of digestive tract; Z92.21 Personal history of antineoplastic chemotherapy; Z98.61 Coronary angioplasty status
CPT/HCPCS: 36415; 71045; 74018; 74177; 74420; 80048; 80053; 81003; 81015; 83690; 85025; 85610; 85730; 87077; 87086; 87186; 93005; 93306; 96361; 96365; 96367; 96368; 96375; C1758; C1769; J0696; J1100; J1956; J2001; J2270; J2405; J2704; J2765; J3010; J3490; Q9961; Q9966; Q9967

== ENCOUNTER 2019-02-11 09:55 | Outpatient (CLI) | payer MEDICARE, OTHER ==
[2019-02-11 11:34] LABS: Hemoglobin 13.9 g/dL (14.0-18.0); Mean Corpuscular Hemoglobin 31.6 pg (27.0-31.0); Mean Corpuscular Volume 95.7 fL (78.0-98.0); Mean Platelet Volume 8.2 fL (7.4-10.4); Platelet Count 181 thou/uL (130-400); RBC Distribution Width 13.7 % (11.5-14.5); Red Blood Cell (RBC) Count 4.41 mill/uL (4.70-6.10); White Blood Cell (WBC) Count 4.8 thou/uL (4.8-10.8)
[2019-02-11 11:40] LABS: PTT 27.5 SEC (22.9-36.1); Prothrombin Time 13.6 SEC (12.0-14.7)
[2019-02-11 11:58] LABS: Anion Gap 15 mmol/L (10-20); BUN (Urea Nitrogen) 20 mg/dL (8.4-25.7); Calc. Creatinine Clearance 0 mL/min (70-130); Calcium 9.3 mg/dL (7.8-10.44); Carbon Dioxide 23 mmol/L (23-31); Chloride 105 mmol/L (98-107); Estimated GFR-MDRD 54; Glucose 90 mg/dL (83-110); Potassium 4.6 mmol/L (3.5-5.1); Sodium 138 mmol/L (136-145)
== END 2019-02-11 09:56 | disposition home or self-care (01) ==
LOC: LABBT 09:55
PROVIDERS: ATTEND Urology
DX: Z01.818 Encounter for other preprocedural examination (principal); N20.0 Calculus of kidney
CPT/HCPCS: 80048; 81001; 85027; 85610; 85730; 87086; 93005; 93010

== ENCOUNTER 2019-02-13 18:42 | Emergency (ER) | payer MEDICARE, OTHER ==
[2019-02-13] MEDS ORDERED: Ciprofloxacin HCL/Dexameth Otic Drops 7.5 ml Bottle ONE (19:01)
== END 2019-02-13 19:09 | disposition home or self-care (01) ==
LOC: ERS 18:42
DX: S00.451A Superficial foreign body of right ear, initial encounter (principal); E78.5 Hyperlipidemia, unspecified; I10 Essential (primary) hypertension; I25.10 Atherosclerotic heart disease of native coronary artery without angina pectoris; D64.9 Anemia, unspecified; K21.9 Gastro-esophageal reflux disease without esophagitis; Z87.442 Personal history of urinary calculi; W45.8XXA Other foreign body or object entering through skin, initial encounter
CPT/HCPCS: 69200

== ENCOUNTER 2019-02-18 05:55 | Day surgery (SDC) | payer MEDICARE, OTHER ==
[2019-02-18] MEDS ORDERED: Piperacillin/Tazobactam 3.375 GM VIAL ONE (06:52)
[2019-02-18] MEDS ORDERED: Sodium Chloride 0.9% 100 ML ONE (06:52)
[2019-02-18] MEDS ORDERED: Iothalamate Meglumine 60% 50 ML VIAL FS ONE ×2 (07:08→09:42)
[2019-02-18] MEDS ORDERED: Fentanyl 100 MCG/2 ML VIAL ONE ×2 (07:19→09:43)
--- NOTE | 2019-02-18 07:50 | RAD ---
Exam: Single view of the abdomen HISTORY: Preoperative radiograph COMPARISON: 01/25/2019 FINDINGS: Single view of the abdomen shows a nonspecific, nonobstructive bowel gas pattern. An ostomy is seen in the right lower quadrant of the abdomen. A left ureteral stent is seen with its pigtail portions overlying the kidney and urinary bladder. This catheter is tortuous. No suspicious calcifica tions are seen. Degenerative changes are seen in the spine. IMPRESSION: Tortuous left ureteral stent
--- NOTE | 2019-02-18 09:42 | RAD ---
LEFT RETROGRADE PYELOGRAM: Date: 02/18/19 HISTORY: History of renal stones. COMPARISON: 01/26/19. FINDINGS: There is contrast media injected into the left ureter with a dilated upper collecting system and uppe r ureter. There appear to be several filling defects in the mid-distal ureter region. IMPRESSION: Evidence for several filling defects in the mid-distal ureter region. Very tortuous ureter. Dilatatio n of the left upper collecting system. Left ureteral stent placed following exam. POS: [facility]
[2019-02-18] MEDS ORDERED: Meperidine HCl/PF 25 MG/ML VIAL ONE (10:03)
[2019-02-18] MEDS ORDERED: Phenazopyridine HCl 97.5 MG TABLET ONE (10:17)
[2019-02-18] MEDS ORDERED: HYDROcodone/Acetaminophen 5/325 mg Tablet ONE (12:13)
[2019-02-18] MEDS ORDERED: Glycopyrrolate 0.2 MG/ML 5 ML SYRINGE ONE (13:27)
[2019-02-18] MEDS ORDERED: Ondansetron PF 4 MG/2 ML Vial ONE (13:27)
[2019-02-18] MEDS ORDERED: Lidocaine 1% PF 5 ML VIAL ONE (13:27)
[2019-02-18] MEDS ORDERED: PROPOFOL 200 MG/20 ML VIAL ONE (13:27)
[2019-02-18] MEDS ORDERED: diphenhydrAMINE 50 MG/ML VIAL ONE (13:27)
[2019-02-18] MEDS ORDERED: ePHEDrine 50 MG/ML VIAL ONE (13:27)
[2019-02-18] MEDS ORDERED: Rocuronium Bromide 10 MG/ML (10ML VIAL) ONE (13:27)
--- NOTE | 2019-02-18 13:54 | OP ---
DATE OF PROCEDURE: 02/18/2019 PREOPERATIVE DIAGNOSES: 1. An 83-year-old male with history of urolithiasis, previously followed by Dr. Potter with history of left ureteral stricture, presented with Pseudomonas urinary tract infection. 2. CT demonstrating multiple left mid to distal ureteral calculi focus about 4 to 5 in number measuring 8 mm, 5 mm, 4 mm, 3 mm respectively, status post ureteral stent. PROCEDURES PERFORMED: Cystoscopy, left retrograde pyelogram 6 x 30 double-J ureteral stent replacement, balloon dilatation of the left distal ureter, flexible and rigid ureteroscopy, laser lithotripsy of multiple left ureteral calculi. ANESTHESIA: General. COMPLICATIONS: None apparent. DISPOSITION: To recovery room in stable condition. INTRAOPERATIVE FINDINGS: 1. As previous, mild BPH component. 2. Left distal ureteral stricture as previous, with significant redundancy of the ureteral mucosa and ureter, corkscrewing of the proximal ureter and chronic hydronephrosis. INDICATIONS FOR PROCEDURE AND HISTORY: Mr. Lee is a pleasant 83-year-old male, who presented to the emergency room few weeks ago due to left flank pain. UA demonstrated Pseudomonas UTI, his mild renal insufficiency, which resolved with ureteral stent placement. His urine culture is negative. He presents today for ureteroscopy, laser lithotripsy, balloon dilatation of the ureteral stricture. Risks and complications of the procedure were reviewed with him in detail including, but not limited to, bleeding, pain, infection, injury to adjacent organs, recurrent ureteral stricture, possible stage intervention given degree of stricture, stone burden. DESCRIPTION OF PROCEDURE: After an informed consent was signed, the patient was taken to the operating room, placed in a dorsal lithotomy position with the genital area prepped and draped in the usual surgical sterile fashion. Broad-spectrum antibiotics will be provided based on previous urine culture. Bilateral IRVIN hose and SCDs were placed. We used a 21-Italian cystoscope, which demonstrated normal anterior and posterior urethra with mildly obstructing lateral lobes. Bladder was entered, which demonstrated previous ureteral stent, which was removed to the level of the meatus. As previous, there was significant tortuosity of the ureter, corkscrewing due to chronic hydronephrosis due to significant ureteral stricture. The stent was removed to the level of the meatus and a 0.35 Sensor wire was passed of the stent. Due to the corkscrewing, we did pass an open-ended catheter, we made our way to the redundancy of the corkscrewing of the proximal ureter and into the upper pole. The wire was then secured. At this time, using a 10-Italian dual- lumen access sheets, we performed a retrograde pyelogram. There was an area of narrowing as previous in the distal ureter spanning from the level of inferior SI joint level just proximal to the intramural ureter. As I was able to pass a 6-Italian and a 5-Italian open-end catheter without significant issues, we passed the rigid ureteroscope to survey, however, the level of the stricture with redundant floppy ureter was appreciated, therefore decision was made to balloon dilate. Using a 15-Italian 6-cm balloon dilator, dilated the segment 6 cm, covered the entire span of the area that needed dilatation. We initially dilated with a 12-Italian 4 cm, however, 15-Italian 6 cm was a more efficacious.. There was redundancy of the ureteral mucosa as previously noted. We made our way to see the stones. This stone burden appeared to be much more significant than CT . We laser lithotripsied the stone in dust setting as a basket extracting through the redundant floppy ureter and stricture was somewhat cumbersome. We laser lithotripsied most of the stone burden into dust-like stone debris, some of them did not migrate proximally as he has a significantly dilated megaureter. At this time, as he was dilated, I attempted to pass a sheath 13/15 x 46 cm, however, this would not pass the area of the stricture. We transitioned to 11/13-Italian navigator. This would also not pass. It was likely that there was redundancy of the ureter hampering the passage. Therefore , I did not further pursue to provide trauma. At this time, we passed the flexible ureteroscope over the wire as we were unable to successfully pass and navigate to basket extract atraumatically. Using a flexible ureteroscope, we advanced it to the proximal ureter. There were more stone debris that we saw and we laser lithotripsied these. Some of the stone appeared to be about 1 to 1.2 cm. We laser lithotripsied the stones into smaller fragments. Given the elapsed time and the degree of stone burden, I am planning a stage intervention. There are stones left in situ, probably 2 to 3 mm to 3 to 4 mm fragmented. The rest are dust-like debris. The wire was confirmed to be in the left upper pole through the tortuous proximal ureter and a 6 x 30 double-J ureteral stent was passed. He has chronic corkscrewing of the proximal ureter and dilated ureter. Bladder was then completely emptied and he tolerated the procedure well. As we cannot basket a stone on this endeavor, it was my hope that we bring him back and we may be able to pass a navigator to successfully basket extract or we will further laser lithotripsy the stone into more dust-like debris as he will have difficulty passing stone sediments through his ureteral stricture. He was discharged with [place] 5/325 #30 one p.o. q.6-8 hours p.r.n., refill for Flomax #30, Colace one p.o. b.i.d. #30, oxybutynin XL one p.o. daily #20 for bladder spasms. Refill for ciprofloxacin for course of 8 days until followup due to history of Pseudomonas UTI. Upon followup, I will consider a restaging CT stone protocol as there appears to be more stone burden than initial CT. We will reschedule for second-look ureteroscopy, balloon dilatation, and laser lithotripsy. Job ID: [id number] [facility]
== END 2019-02-18 13:31 | disposition home or self-care (01) ==
LOC: SDC 05:55
PROVIDERS: ATTEND Urology
PROC: 0TF78ZZ Fragmentation in Left Ureter, Via Natural or Artificial Opening Endoscopic (ICD-10-PCS; principal; 2019-02-18)
PROC: 0T778DZ Dilation of Left Ureter with Intraluminal Device, Via Natural or Artificial Opening Endoscopic (ICD-10-PCS; 2019-02-18)
PROC: 0TC78ZZ Extirpation of Matter from Left Ureter, Via Natural or Artificial Opening Endoscopic (ICD-10-PCS; 2019-02-18)
DX: N13.2 Hydronephrosis with renal and ureteral calculous obstruction (principal); N13.1 Hydronephrosis with ureteral stricture, not elsewhere classified; N40.0 Benign prostatic hyperplasia without lower urinary tract symptoms; E78.5 Hyperlipidemia, unspecified; I10 Essential (primary) hypertension; I25.10 Atherosclerotic heart disease of native coronary artery without angina pectoris; I25.2 Old myocardial infarction; G47.00 Insomnia, unspecified; Z85.038 Personal history of other malignant neoplasm of large intestine; Z87.891 Personal history of nicotine dependence; Z79.82 Long term (current) use of aspirin; Z79.899 Other long term (current) drug therapy; Z95.1 Presence of aortocoronary bypass graft; Z95.5 Presence of coronary angioplasty implant and graft; Z90.49 Acquired absence of other specified parts of digestive tract
CPT/HCPCS: 52344; 52356; 74018; 74420; C1758; C1769; J2175; J2543; J3010; J3490; Q9961

== ENCOUNTER 2019-02-25 14:05 | Outpatient (CLI) | payer MEDICARE, OTHER ==
[2019-02-25 15:00] LABS: Hemoglobin 12.9 g/dL (14.0-18.0); Mean Corpuscular HGB CONC 32.9 g/dL (32.0-36.0); Mean Corpuscular Hemoglobin 30.9 pg (27.0-31.0); Mean Platelet Volume 8.3 fL (7.4-10.4); Platelet Count 153 thou/uL (130-400); RBC Distribution Width 13.5 % (11.5-14.5); Red Blood Cell (RBC) Count 4.18 mill/uL (4.70-6.10); White Blood Cell (WBC) Count 5.7 thou/uL (4.8-10.8)
[2019-02-25 15:06] LABS: PTT 26.2 SEC (22.9-36.1); Prothrombin Time 13.4 SEC (12.0-14.7)
[2019-02-25 15:20] LABS: Anion Gap 11 mmol/L (10-20); BUN (Urea Nitrogen) 18 mg/dL (8.4-25.7); Calc. Creatinine Clearance 0 mL/min (70-130); Calcium 9.3 mg/dL (7.8-10.44); Carbon Dioxide 27 mmol/L (23-31); Chloride 105 mmol/L (98-107); Estimated GFR-MDRD 57; Glucose 84 mg/dL (83-110); Potassium 3.9 mmol/L (3.5-5.1); Sodium 139 mmol/L (136-145)
== END 2019-02-25 14:06 | disposition home or self-care (01) ==
LOC: LABBT 14:05
PROVIDERS: ATTEND Urology
DX: Z01.812 Encounter for preprocedural laboratory examination (principal)
CPT/HCPCS: 80048; 81001; 85027; 85610; 85730; 87086

== ENCOUNTER 2019-03-03 12:55 | Outpatient (CLI) | payer MEDICARE, OTHER ==
--- NOTE | 2019-03-03 16:14 | CT ---
EXAM: Abdomen and pelvic CT scan without contrast: HISTORY: Ureteral stricture, recurrent stone, abdominal pain COMPARISON: 01/25/2019 FINDINGS: No acute process of visualized lung bases Liver: Stable punctate parenchymal hypodensities of the liver are too small to definitively character ize Gallbladder: Contracted, with cholelithiasis Pancreas: Unremarkable Spleen: Unremarkable. Adrenal glands: Unremarkable. Kidneys: Left ureteral stent is present, with moderate dilatation of the proximal to mid left ureter, as well as urothelial thickening and periureteral fat stranding. Stable parenchymal atrophy of the mid inferior left kidney. Punctate calcific densities of the left kidney are present. Prior left pare nchymal hypodensity is not reliably discerned by noncontrast imaging. No discrete ureteral calculus is seen. 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 Free Air: No free air. Ascites: No ascites. Diffuse vascular calcification. Osseous structures: No acute osseous abnormalities. IMPRESSION: Indwelling left ureteral stent present. There is moderate dilatation of the proximal to mid left uret er with urothelial thickening and surrounding fat stranding. There is no obvious ureteral calculus. Punctate densities of the left kidney are present. Transcribed Date/Time: 03/03/2019 4:19 PM
== END 2019-03-03 12:56 | disposition home or self-care (01) ==
LOC: BICCT 12:55
PROVIDERS: ATTEND Urology
DX: N20.0 Calculus of kidney (principal); N13.5 Crossing vessel and stricture of ureter without hydronephrosis; N28.89 Other specified disorders of kidney and ureter; Z96.0 Presence of urogenital implants
CPT/HCPCS: 74176

== ENCOUNTER 2019-03-09 05:53 | Day surgery (SDC) | payer MEDICARE, OTHER ==
[2019-03-09] MEDS ORDERED: MEROPENEM 1 GM/50 ML 1 GM in Premix Bag 1 BAG IVPB SCH (06:15)
[2019-03-09] MEDS ORDERED: Fentanyl 100 MCG/2 ML VIAL ONE (06:21)
[2019-03-09] MEDS ORDERED: Iothalamate Meglumine 60% 50 ML VIAL FS ONE (07:10)
--- NOTE | 2019-03-09 07:33 | RAD ---
Abdomen one view INDICATION: Preop evaluation COMPARISON: CT the abdomen and pelvis without contrast dated March 03, 2019 FINDINGS: Bowel gas: Nonspecific but without overt appearance of obstruction. Lung bases: Clear. Additional findings: 4 mm distal left ureteral calculus is unchanged in position to the recent compar lillie CT. Left double-J ureteral stent is unchanged in position. Scattered vascular calcifications are stable. Osseous structures: No acute osseous abnormality is demonstrated. IMPRESSION: 1. Stable left distal ureteral calculus and left double-J ureteral stent.
--- NOTE | 2019-03-09 09:31 | RAD ---
RETROGRADE PYELOGRAM: HISTORY: Renal calculi. COMPARISON: 02/18/2019. FINDINGS: Somewhat tortuous left ureter with dilatation of the left upper collecting system upon injection. In tervention of the mid distal ureter consistent with some ballooning. Replacement of left ureteral st ent. IMPRESSION: Replacement of left ureteral stent. Dilatation of the left upper collecting system. POS: [facility]
[2019-03-09] MEDS ORDERED: Oxybutynin 5 MG TAB ONE (09:37)
[2019-03-09] MEDS ORDERED: Phenazopyridine HCl 97.5 MG TABLET ONE (09:38)
[2019-03-09] MEDS ORDERED: HYDROcodone/Acetaminophen 5/325 mg Tablet ONE (11:34)
--- NOTE | 2019-03-09 15:10 | OP ---
DATE OF PROCEDURE: 03/09/2019 PREOPERATIVE DIAGNOSES: 1. An 83-year-old male with history of left ureteral calculi previously followed by Dr. Khan, with history of left ureteral stricture presented with Pseudomonas urinary tract infection. 2. CT demonstrated multiple mid to distal ureteral calculi focus about 4 to 5 in number measuring 8 mm, 5 mm, 4 mm, 3 mm respectively. 3. Status post ureteral stricture dilatation, ureteroscopy, laser lithotripsy with staging CT demonstrating persistent stone nidus measuring 1.3 cm in craniocaudal dimension. POSTOPERATIVE DIAGNOSES: 1. An 83-year-old male with history of left ureteral calculi previously followed by Dr. Khan, with history of left ureteral stricture presented with Pseudomonas urinary tract infection. 2. CT demonstrated multiple mid to distal ureteral calculi focus about 4 to 5 in number measuring 8 mm, 5 mm, 4 mm, 3 mm respectively. 3. Status post ureteral stricture dilatation, ureteroscopy, laser lithotripsy with staging CT demonstrating persistent stone nidus measuring 1.3 cm in craniocaudal dimension. PROCEDURE PERFORMED: Cystoscopy, left 6 x 30 double-J ureteral stent exchange, ureteral stricture, balloon dilatation of ureteral stricture, ureteroscopy, laser lithotripsy, basket extraction of stone fragments, and retrograde pyelogram. ANESTHESIA: General. COMPLICATIONS: None apparent. SPECIMENS: Stone fragment for chemical analysis. INTRAOPERATIVE FINDINGS: 1. As previous, mild BPH component, bilobar. 2. Left distal ureteral stricture as previous with significant redundancy of the ureteral mucosa and ureter with corkscrewing of the proximal ureter and chronic hydronephrosis. 3. Residual stone nidus with staggered stones, fragmented debris at the level of the ureteral stricture, which begins at the level of the bifurcation of the iliacs of the pelvic inlet. INDICATIONS FOR PROCEDURE AND HISTORY: Mr. Lee is a pleasant 83-year-old male, who presented to the emergency room few weeks ago with flank pain, Pseudomonas UTI with mild renal insufficiency. CT demonstrated multiple left mid to distal ureteral calculi with ureteral stricture. Stent was able to be passed. He underwent staged ureteroscopy, laser lithotripsy. Despite CT findings, I do feel the CT did understage his stone nidus and stone burden as there was significantly increased stone burden on endoscopy than compared to CT. I did re-stage him after ureteroscopy laser lithotripsy as he required stage intervention given stone nidus burden and complexity of his case due to his ureteral stricture, which the official report demonstrates no stone nidus; however, per my review, there is a stone nidus in craniocaudal dimension just proximal to the area of the ureteral structure measuring 1.3 cm. As I anticipated, on ureteroscopy, there was more stone burden than previous staging CT was obtained. No renal calculi were seen. He presents today for staged ureteroscopy, laser lithotripsy, and has been fully informed regarding indications, risks and complications including, but not limited to, bleeding, pain, infection, injury to adjacent organs, urosepsis, recurrent stricture formation. Complexity of his anatomical issues was discussed with the patient in detail. My plan is to clear his stone debris as much as we can and perform a renal scan to stage the degree of his renal function of the left kidney. DESCRIPTION OF PROCEDURE: After an informed consent was signed, the patient was taken to the operating room, placed in a dorsal lithotomy position with the genital area prepped and draped in the usual surgical sterile fashion. A 21-Austrian cystoscope was passed and again noted was bilobar mild coapting lateral lobes with no significant BPH component obstructing in nature. Bladder was entered, and a previously placed ureteral stent was removed to the level of the meatus. He has chronic corkscrewing and tortuosity of the proximal ureter as demonstrated on redundancy of his ureteral stent morphology. The stent was removed to the level of meatus and a 0.35 Sensor wire was able to be passed to the left upper pole, making our way through the tortuous ureter proximally. At this time, a 10-Austrian dual-lumen access sheath was passed, and we confirmed proper placement of the safety wire, and a second safety wire was able to be passed. With the safety wire secured and with the working wire guidance, I passed the rigid ureteral scope. I previously dilated his ureteral stricture and I was able to make my way above the ureteral stricture, which demonstrated bullous edema and some redundancy of the ureteral mucosa due to tortuosity. I did encounter multiple stone debris just at the level of the ureteral stricture, multiple stones in nature about 5 or 6 stone niduses. I pushed these stone niduses up into a more dilated ureteral caliber above the stricture, and we laser lithotripsied the stone using rigid ureteral scope into multiple stone debris. Most of the stone were fragmented into dustlike debris. At this time, we repeated the maneuver to push up the stones at the level of the ureteral stricture to a more amenable location in the ureter, and we laser lithotripsied these in a systematic manner. At the end of the procedure, I felt that I could do as much at this endeavor with the rigid ureteroscope, and therefore, I needed to stage more proximally to rule out migrated stone debris of concern. Given tortuosity, I did transition to a flexible ureteroscope at this time. Although I was able to pass my rigid ureteroscope up, I did dilate his ureteral stricture using [employer] 6 cm 15-Austrian balloon. We dilated the ureter into 2 segments to ensure that we cover the area of the stricture, which spans just below the pelvic inlet as to ureter at the bifurcation of the iliacs distally. After adequate balloon dilatation, pressure was held for 2 minutes and subsequently deflated under fluoroscopic guidance. This was performed over the safety wire. With the subsequent balloon dilatation, I was able to pass a 11/13-Austrian navigator; however, this would not pass beyond the ureteral stricture region as there was not per se a decrease lumen; however, due to the redundancy of the ureteral mucosa and corkscrewing, the navigator would not pass, which I did not forcibly engage. The navigator was passed just at the lip of the ureteral stricture effacement, which was visualized on ureteroscopy. I was able to pass the flexible ureteroscope and basket extract residual stone nidus that had migrated more proximally at the level of L2-L3 ureter. I surveyed the ureter, and I did survey the ureter to the level of further corkscrewing at the UPJ. I did not pursue further pyeloscopy as there was significant redundancy of the corkscrewing ureteral mucosa proximally. We cleared the ureteral stone burden of the mid to distal ureter, what remained were tiny fragmented dustlike debris. Those that were large enough that I would be considered clinically significant were basket extracted atraumatically. The navigator was then removed, and a retrograde pyelogram demonstrated no evidence of extravasation of contrast. The wire was confirmed to be appropriate in the left mid to upper pole. A 6 x 30 double-J ureteral stent was passed as previous demonstrating corkscrewing tortuosity of his ureter. He tolerated the procedure well. He was discharged with ciprofloxacin 500 mg one p.o. b.i.d. for 7 days, Colace #30 p.r.n., [place] 5/325 #30, oxybutynin refilled 10 mg one p.o. daily XL. I recently discontinued his Flomax due to low blood pressure issues. Moreover, he has no significant obstructive BPH component of concern. Azo [id number] is also provided [id number]. He will follow up with me this Saturday for reassessment. My plan is to obtain a staging Lasix renal scan prior to cysto stent pull so that we may further stage degree of functionality of his left renal moiety. Job ID: [id number] [facility]
[2019-03-09] MEDS ORDERED: Lidocaine 1% PF 5 ML VIAL ONE (15:49)
[2019-03-09] MEDS ORDERED: PROPOFOL 200 MG/20 ML VIAL ONE (15:49)
[2019-03-09] MEDS ORDERED: ePHEDrine 50 MG/ML VIAL ONE (15:49)
[2019-03-09] MEDS ORDERED: Ondansetron PF 4 MG/2 ML Vial ONE (15:49)
[2019-03-09] MEDS ORDERED: Glycopyrrolate 0.2 MG/ML 5 ML SYRINGE ONE (15:49)
[2019-03-09] MEDS ORDERED: Rocuronium Bromide 10 MG/ML (10ML VIAL) ONE (15:49)
== END 2019-03-09 12:25 | disposition home or self-care (01) ==
LOC: SDC 05:53
PROVIDERS: ATTEND Urology
PROC: 0TF78ZZ Fragmentation in Left Ureter, Via Natural or Artificial Opening Endoscopic (ICD-10-PCS; principal; 2019-03-09)
PROC: 0T778DZ Dilation of Left Ureter with Intraluminal Device, Via Natural or Artificial Opening Endoscopic (ICD-10-PCS; 2019-03-09)
PROC: 0TC78ZZ Extirpation of Matter from Left Ureter, Via Natural or Artificial Opening Endoscopic (ICD-10-PCS; 2019-03-09)
DX: N13.2 Hydronephrosis with renal and ureteral calculous obstruction (principal); N13.1 Hydronephrosis with ureteral stricture, not elsewhere classified; N40.1 Benign prostatic hyperplasia with lower urinary tract symptoms; N13.8 Other obstructive and reflux uropathy; N39.0 Urinary tract infection, site not specified; B96.5 Pseudomonas (aeruginosa) (mallei) (pseudomallei) as the cause of diseases classified elsewhere; R42 Dizziness and giddiness; I25.10 Atherosclerotic heart disease of native coronary artery without angina pectoris; E78.5 Hyperlipidemia, unspecified; I10 Essential (primary) hypertension; G47.00 Insomnia, unspecified; H91.93 Unspecified hearing loss, bilateral; Z87.891 Personal history of nicotine dependence; Z79.82 Long term (current) use of aspirin; Z79.899 Other long term (current) drug therapy
CPT/HCPCS: 74018; 74420; 82365; 88300; C1758; C1769; J2001; J2185; J2405; J2704; J3010; J3490; Q9961

== ENCOUNTER 2019-03-19 12:26 | Outpatient (CLI) | payer MEDICARE, OTHER ==
--- NOTE | 2019-03-19 16:03 | NM ---
NM Renogram HIPN Lasix History: Crossing vessel and stricture of ureter without hydronephrosis Comparison: CT examination March 03, 2019 Findings: There was performed after the intravenous ministration of a 0.6 mCi technetium 99m MAG3. Split function is 30.3% left renal function and 69.7% right renal function. The time of half max is 22.9 minutes on the left and 9 minutes on the right. No complete obstruction. Impression: Partial obstruction of the left kidney with decreased split function and increased half m ax time.
== END 2019-03-19 12:27 | disposition home or self-care (01) ==
LOC: NM 12:26
PROVIDERS: ATTEND Urology
DX: N13.5 Crossing vessel and stricture of ureter without hydronephrosis (principal); N28.89 Other specified disorders of kidney and ureter
CPT/HCPCS: 78708; A4641; A9562

== ENCOUNTER 2019-04-03 09:02 | Outpatient (CLI) | payer MEDICARE, OTHER | END 2019-04-03 09:03 | disposition home or self-care (01) | LOC: WCC 09:02 | PROVIDERS: ATTEND Family Medicine | DX: K91.89 Other postprocedural complications and disorders of digestive system (principal) | CPT/HCPCS: 97139; G0463; 99211 ==

== ENCOUNTER 2019-04-16 09:16 | Inpatient (IN) | payer MEDICARE, OTHER ==
[2019-05-26] MEDS ORDERED: cefOXitin 2 GM VIAL ONE ×2 (06:07→10:42)
[2019-05-26] MEDS ORDERED: Ketorolac Tromethamine 30 MG/ML VIAL ONE (06:07)
[2019-05-26] MEDS ORDERED: Sodium Chloride 0.9% 100 ML ONE (06:08)
[2019-05-26] MEDS ORDERED: Bupivacaine/Epinephrine 0.25% 30 ML VIAL ONE (06:54)
[2019-05-26] MEDS ORDERED: Fentanyl 100 MCG/2 ML VIAL ONE ×2 (07:17→11:39)
[2019-05-26] MEDS ORDERED: Midazolam HCl 2 mg/2 ml Vial ONE ×2 (07:17→10:08)
[2019-05-26] MEDS ORDERED: Mannitol 12.5 GM/50 ML ONE (09:36)
[2019-05-26] MEDS ORDERED: traZODone HCl 150 MG TAB PO PRN (11:13)
[2019-05-26] MEDS ORDERED: Ondansetron PF 4 MG/2 ML Vial IVP PRN (11:21)
[2019-05-26] MEDS ORDERED: hydrALAZINE 20 MG/ML VIAL SLOW IVP PRN (11:21)
[2019-05-26] MEDS ORDERED: Promethazine HCl 25 MG/ML VIAL IM PRN (11:21)
[2019-05-26] MEDS ORDERED: Azelastine 137 MCG/Spray 30 ML NS PRN (11:30)
[2019-05-26] MEDS ORDERED: D5 1/2 NS w/20 mEq KCL 1,000 ML ONE (13:07)
[2019-05-26] MEDS: D5 1/2 NS w/20 mEq KCL 1,000 ML IV SCH ×2 (13:08→22:54)
[2019-05-26] MEDS: Acetaminophen 1,000 MG in Premix Bag 1 BAG IVPB SCH ×2 (13:09→18:08)
[2019-05-26] MEDS ORDERED: metroNIDAZOLE 500 MG/100 ML BAG ONE (13:13)
[2019-05-26] MEDS ORDERED: Ondansetron PF 4 MG/2 ML Vial ONE (13:31)
[2019-05-26] MEDS ORDERED: Calcium Chloride 1 GM/10 ML Abboject SYRINGE ONE (13:31)
[2019-05-26] MEDS ORDERED: Rocuronium Bromide 10 MG/ML (10ML VIAL) ONE (13:31)
[2019-05-26] MEDS ORDERED: Glycopyrrolate 0.2 MG/ML 5 ML SYRINGE ONE (13:31)
[2019-05-26] MEDS ORDERED: ePHEDrine 50 MG/ML VIAL ONE (13:31)
[2019-05-26] MEDS ORDERED: PHENYLEPHRINE-NS 100 MCG/ML 10 ML SYRINGE ONE (13:31)
[2019-05-26] MEDS ORDERED: Dexamethasone 20 MG/5 ML VIAL ONE (13:31)
[2019-05-26] MEDS ORDERED: Lidocaine 1% PF 5 ML VIAL ONE (13:31)
[2019-05-26] MEDS ORDERED: PROPOFOL 200 MG/20 ML VIAL ONE (13:31)
[2019-05-26] MEDS: metroNIDAZOLE 500 MG in Premix Bag 1 BAG IVPB SCH ×2 (13:47→18:15)
[2019-05-26] MEDS: Morphine 2 MG/ML SYRINGE SLOW IVP PRN ×2 (16:01→20:52)
[2019-05-26] MEDS: cefOXitin 2 GM in Sodium Chloride 0.9% 100 ML IVPB SCH (18:57)
[2019-05-26] MEDS: Famotidine/PF 20 mg/2ml Vial SLOW IVP SCH (20:55)
[2019-05-26] MEDS: Atorvastatin Calcium 40 MG TAB PO SCH (20:55)
[2019-05-26] MEDS: Enoxaparin Sodium 40 MG/0.4 ML SYRINGE SC SCH (20:56)
[2019-05-26] MEDS: Losartan 25 MG TAB PO SCH (22:50)
[2019-05-26] MEDS: Famotidine 20 MG TAB PO SCH (22:50)
[2019-05-27] MEDS: metroNIDAZOLE 500 MG in Premix Bag 1 BAG IVPB SCH (00:22)
[2019-05-27] MEDS: Acetaminophen 1,000 MG in Premix Bag 1 BAG IVPB SCH ×2 (00:22→05:08)
[2019-05-27] MEDS: cefOXitin 2 GM in Sodium Chloride 0.9% 100 ML IVPB SCH (02:41)
--- NOTE | 2019-05-27 03:14 | OP ---
DATE OF PROCEDURE: 05/26/2019 PREOPERATIVE DIAGNOSES: 1. Large upper abdominal ventral incisional hernia. 2. Right-sided peristomal hernia. POSTOPERATIVE DIAGNOSES: 1. Large upper abdominal ventral incisional hernia. 2. Right-sided peristomal hernia with dense adhesions to the anterior abdominal wall. OPERATION PERFORMED: Segmental small bowel resection, repair of peristomal hernia without mesh, repair of ventral incisional hernia without mesh. ANESTHESIA: General endotracheal. INDICATIONS: The patient is an 83-year-old white male. 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 He has developed progressive problems associated with a bulging right peristomal hernia. He additionally has a significant protruding ventral incisional hernia in his upper midline. He was taken to the operating room for repair of both of these. DESCRIPTION OF OPERATION: Informed consent was obtained. The patient was taken to the operating room where general endotracheal anesthesia was obtained with the patient in supine position. Abdomen was prepped with ChloraPrep and draped in sterile fashion. The ileostomy was excluded before prepping with Tegaderm and Mastisol. An elliptical incision created in the upper abdomen to excise the wide scar from his prior surgery. Dissection was carried through skin and subcutaneous tissue and carried down into the abdominal cavity. The patient had substantial omental adhesions to the anterior abdomen in the upper portion of the incision. I was able to dissect to the right lateral side and eventually was able to mobilize all the adhesions from the right side of the abdominal wall down to the ileostomy. The parastomal hernia was easily palpable. All bowel up within the parastomal hernia was easily reducible. In a similar fashion, I was able to clear the left side of the upper abdomen. As I began to attempt to clear inferiorly, there was a segment of small intestine that was recognized to be densely adherent to the anterior abdominal wall. There was a dense scar located at this location as well. Although I was slow and careful in attempting to dissect sharply, I very quickly entered the small bowel creating an enterotomy. I continued to mobilize this in order to be able to repair this injury. I eventually was able to clear the anterior abdominal wall extending inferiorly. I had created two additional enterotomies, one proximal and one distal to the large segment that had been opened. It appeared that he had not maintained a liquid diet and there was substantial stool present within the small bowel. I selected a segment of small bowel proximal and distal to the injuries and performed a double-stapled anastomosis with a BARBY 75 stapler between these 2 areas. The intervening mesentery was taken down between clamps and 2-0 silk ties. The specimen was passed off the field. The staple lines were buttressed with 3-0 silk suture and the mesenteric defect was closed with a running suture of 3-0 Vicryl. I then irrigated the abdomen with 2 L of saline in order to cleanse any potential spillage that may have occurred. I ran the small bowel. There was a segment of small bowel that was still adherent inferiorly, but since this was nonobstructive, I decided not to attempt to address this. I then turned my attention to the parastomal hernia. I decided that I was not going to place a mesh in the abdomen due to the amount of spillage that occurred. I therefore repaired the parastomal hernia with a single [id number] suture of 0 Ethibond placed on the medial aspect of the defect. The remaining defect was relatively small and would barely fit more than the segment of small bowel through it. I then secured the small bowel circumferentially to the opening with 4 interrupted sutures of 3-0 silk. Attention was then turned to the hernia. I identified the rectus sheath on either side of midline and dissected this, raising a flap of skin and subcutaneous fat over the top of this. I debrided the hernia sac. After obtaining appropriate mobility, I closed the hernia defect with interrupted [id number] sutures of #1 Prolene. This was done after placing 2 sheets of Seprafilm just below the incision. There was a segment of the abdominal wall inferiorly where there was a very thinned out segment of skin, resting medially on top of fascia with no fat between these areas. I did not try to mobilize this fully. The wound was copiously irrigated with a L of warm saline. All irrigant was aspirated. The subcutaneous tissue was approximated with a few interrupted sutures of 3-0 Vicryl. A #19 round fluted drain was placed within the wound and brought out left lateral inferiorly and secured with 3-0 nylon suture. The skin edges were then approximated loosely with skin daisy and Telfa jason were placed between the daisy. Dry gauze dress was placed externally. There were no complications. The patient tolerated the procedure well and was taken to recovery room in stable condition. Job ID: [id number]
[2019-05-27 04:46] LABS: #Lymphocytes 0.4 thou/uL (1.20-3.40); #Neutrophils 9.1 thou/uL (1.40-6.50); %Eosinophils 0.2 % (0.0-10.0); %Monocytes 9.4 % (0.0-10.0); %Neutrophils 86.4 % (42.0-75.0); Hemoglobin 11.6 g/dL (14.0-18.0); Mean Corpuscular HGB CONC 34.3 g/dL (32.0-36.0); Mean Corpuscular Hemoglobin 33.6 pg (27.0-31.0); Mean Corpuscular Volume 97.9 fL (78.0-98.0); Mean Platelet Volume 8.3 fL (7.4-10.4); Platelet Count 145 thou/uL (130-400); RBC Distribution Width 14.2 % (11.5-14.5); Red Blood Cell (RBC) Count 3.44 mill/uL (4.70-6.10); White Blood Cell (WBC) Count 10.5 thou/uL (4.8-10.8)
[2019-05-27 04:59] LABS: Anion Gap 13 mmol/L (10-20); BUN (Urea Nitrogen) 17 mg/dL (8.4-25.7); Calc. Creatinine Clearance 48 mL/min (70-130); Calcium 8.6 mg/dL (7.8-10.44); Carbon Dioxide 22 mmol/L (23-31); Chloride 107 mmol/L (98-107); Estimated GFR-MDRD 47; Glucose 119 mg/dL (83-110); Potassium 4.7 mmol/L (3.5-5.1); Sodium 137 mmol/L (136-145)
--- NOTE | 2019-05-27 06:04 | PDOC.GSPN ---
Surgery Progress Note: Subj - Subjective Patient reports: still having pain Narrative: Michael Lee is an overweight 83YO CM w/ significant PMH of HTN, a. fib., CAD , and RBBB who presented to the hospital yesterday for an elective open ventral incisional hernia and R sided parastomal hernia repair. The operation also resulted in resection of ~30cm of small bowel. He is post op day 1 today and he was afebrile but had an episode of low BP and low O2% overnight. At 4am, his BP dropped to 99/52 but returned to WNL w/ IVF, and his O2% dropped to 93, but returned to WNL w/ nasal cannula O2 on 2L. He had several pain episodes but they were well controlled w/ IV acetaminophen . Patient was NPO and given ice chips only. His RBC, Hgb, and Hct were low at 3.44L, 11.6L, and 33.7L respectively. His CO2 was borderline low at 22L, but his Cr and glucose were high at 1.45H and 119H respectively. Surgery Progress Note: Obj - Vital signs Vital signs: Vital Signs - Most Recent Temp Pulse Resp BP Pulse Ox 98.1 F 76 18 101/64 93 L 05/27/19 04:00 05/27/19 04:15 05/27/19 04:00 05/27/19 04:15 05/27/19 04:00 - Physical Exam General: no distress, moderate pain Cardiovascular: regular rate and rhythm Respiratory: clear to auscultation, normal respiratory effort Abdomen: soft, nondistended Integumentary: no growths, no rash Psychiatric: memory intact, oriented to time, oriented to person, oriented to place, speech is normal Wound: dressing clean,dry,intact, other (The midline dressing was nontender but assessment was limited due to the abdominal binder. The NATHANAEL drain was draining appropriately.) Surgery Progress Note: Results - Labs Result Diagrams: 05/28/19 05:44 05/28/19 05:44 Lab results: Laboratory Results - last 24 hr 05/27/19 05/27/19 04:16 04:16 WBC 10.5 RBC 3.44 L Hgb 11.6 L Hct 33.7 L MCV 97.9 MCH 33.6 H MCHC 34.3 RDW 14.2 Plt Count 145 MPV 8.3 Neutrophils % 86.4 H Lymphocytes % 4.0 L Monocytes % 9.4 Eosinophils % 0.2 Basophils % 0.0 Neutrophils # 9.1 H Lymphocytes # 0.4 L Monocytes # 1.0 H Eosinophils # 0.0 Basophils # 0.0 Sodium 137 Potassium 4.7 Chloride 107 Carbon Dioxide 22 L Anion Gap 13 BUN 17 Creatinine 1.45 H Estimated GFR (MDRD) 47 Glucose 119 H Calcium 8.6 Surgery Progress Note: A/P - Problem (1) S/P repair of ventral hernia Code(s): Z98.890 - OTHER SPECIFIED POSTPROCEDURAL STATES; Z87.19 - PERSONAL HISTORY OF OTHER DISEASES OF THE DIGESTIVE SYSTEM Status: Acute Assessment and Plan: Patient is recovering well from the operation w/o febrile episodes. Continue managing pain w/ PRN acetaminophen, monitor the patient's low RBC, Hgb, and Hct w/ repeat labs tomorrow, and encourage ambulation.
[2019-05-27] MEDS: Amiodarone 200 MG TAB PO SCH (08:37)
[2019-05-27] MEDS: Famotidine/PF 20 mg/2ml Vial SLOW IVP SCH (08:37)
[2019-05-27] MEDS: Famotidine 20 MG TAB PO SCH (08:37)
[2019-05-27] MEDS: Morphine 2 MG/ML SYRINGE SLOW IVP PRN (10:14)
[2019-05-27] MEDS: Morphine 4 MG/ML VIAL SLOW IVP PRN ×3 (12:47→21:07)
--- NOTE | 2019-05-27 14:57 | PDOC.GSPN ---
Surgery Progress Note: Obj - Vital signs Vital signs: Vital Signs - Most Recent Temp Pulse Resp BP Pulse Ox 97.8 F 70 18 109/71 94 L 05/27/19 11:43 05/27/19 11:43 05/27/19 11:43 05/27/19 11:43 05/27/19 11:43 Surgery Progress Note: Results - Labs Result Diagrams: 05/27/19 04:16 05/27/19 04:16 Lab results: Laboratory Results - last 24 hr 05/27/19 05/27/19 04:16 04:16 WBC 10.5 RBC 3.44 L Hgb 11.6 L Hct 33.7 L MCV 97.9 MCH 33.6 H MCHC 34.3 RDW 14.2 Plt Count 145 MPV 8.3 Neutrophils % 86.4 H Lymphocytes % 4.0 L Monocytes % 9.4 Eosinophils % 0.2 Basophils % 0.0 Neutrophils # 9.1 H Lymphocytes # 0.4 L Monocytes # 1.0 H Eosinophils # 0.0 Basophils # 0.0 Sodium 137 Potassium 4.7 Chloride 107 Carbon Dioxide 22 L Anion Gap 13 BUN 17 Creatinine 1.45 H Estimated GFR (MDRD) 47 Glucose 119 H Calcium 8.6 Surgery Progress Note: A/P - Problem (1) S/P repair of ventral hernia Current Visit: Yes Code(s): Z98.890 - OTHER SPECIFIED POSTPROCEDURAL STATES; Z87.19 - PERSONAL HISTORY OF OTHER DISEASES OF THE DIGESTIVE SYSTEM Status: Acute
[2019-05-27] MEDS: D5 1/2 NS w/20 mEq KCL 1,000 ML IV SCH ×2 (18:26→21:12)
[2019-05-27] MEDS: Enoxaparin Sodium 40 MG/0.4 ML SYRINGE SC SCH (21:07)
[2019-05-27] MEDS: Losartan 25 MG TAB PO SCH (21:10)
[2019-05-27] MEDS: Atorvastatin Calcium 40 MG TAB PO SCH (21:10)
[2019-05-28] MEDS: D5 1/2 NS w/20 mEq KCL 1,000 ML IV SCH ×3 (01:56→17:05)
[2019-05-28] MEDS: Morphine 4 MG/ML VIAL SLOW IVP PRN ×2 (05:28→08:50)
[2019-05-28 06:35] LABS: Anion Gap 11 mmol/L (10-20); BUN (Urea Nitrogen) 14 mg/dL (8.4-25.7); Calc. Creatinine Clearance 74 mL/min (70-130); Calcium 8.8 mg/dL (7.8-10.44); Carbon Dioxide 26 mmol/L (23-31); Chloride 103 mmol/L (98-107); Estimated GFR-MDRD 76; Glucose 98 mg/dL (83-110); Potassium 4.8 mmol/L (3.5-5.1); Sodium 135 mmol/L (136-145)
[2019-05-28 06:55] LABS: Band 10 % (5-11); Hemoglobin 10.7 g/dL (14.0-18.0); Lymphocytes 7 % (21-51); MDiff Complete? YES; Mean Corpuscular HGB CONC 32.6 g/dL (32.0-36.0); Mean Corpuscular Hemoglobin 32.5 pg (27.0-31.0); Mean Corpuscular Volume 99.6 fL (78.0-98.0); Mean Platelet Volume 8.2 fL (7.4-10.4); Monocytes 13 % (0-10); Neutrophil 70 % (42-75); Platelet Count 140 thou/uL (130-400); RBC Distribution Width 14.3 % (11.5-14.5); Red Blood Cell (RBC) Count 3.29 mill/uL (4.70-6.10); White Blood Cell (WBC) Count 6.7 thou/uL (4.8-10.8)
[2019-05-28] MEDS: Amiodarone 200 MG TAB PO SCH (08:50)
[2019-05-28] MEDS: Acetaminophen 1,000 MG in Premix Bag 1 BAG IVPB SCH ×2 (11:41→17:06)
[2019-05-28] MEDS: Ketorolac Tromethamine 30 MG/ML VIAL IVP SCH ×2 (11:41→17:06)
--- NOTE | 2019-05-28 15:33 | PRG ---
DATE OF SERVICE: 05/28/2019 SUBJECTIVE: Mr. Lee remains on the surgical floor. He is postoperative day #2 following laparotomy and segmental small bowel resection, repair of peristomal hernia and ventral hernia, both without mesh. Today when I arrived, he was complaining of substantial abdominal discomfort and prevents him from coughing adequately and clearing his perceived mucus. He tells me he is voiding well. He is tolerating some clear liquids, but tells me, does not have much of an appetite. OBJECTIVE: VITAL SIGNS: He is afebrile. Pulse is 75, blood pressure 102/65. GENERAL: He is alert and pleasant, and overall seems to be doing well and really does not seem to be in distress. When he coughs, he does not have a productive cough. HEAD, EYES, EARS, NOSE, AND THROAT: Unremarkable. NECK: Supple. LUNGS: Clear to auscultation anteriorly and posteriorly. CARDIAC: Regular rate and rhythm. ABDOMEN: Appears to be soft. Bowel sounds are present, but hypoactive. Abdominal binder remains intact and his midline dressing remains intact also. He does have Telfa jason within his wound. He has a drain in the subcutaneous space that was cleared to repair his hernia. The drain output has been minimal. Yesterday, it was 30 mL. LABORATORY DATA: His CBC is unremarkable with white blood cell count of 6.7, hemoglobin is 10.7. Chemistry panel shows that his creatinine is now normal, dropping from 1.45 yesterday to 0.95 today. ASSESSMENT AND PLAN: He is doing pretty well postoperative day #2. To help him with his pain control, I will start him on Toradol since I know his kidney function is okay and start him on scheduled intravenous acetaminophen as well. He can continue with clear liquids until he developed an appetite, at which point I will advance him to full liquids. I strongly encouraged him to ambulate today. I will also start him on a nebulizer to help him clear his perceived airway congestion. Job ID: [id number]
[2019-05-28] MEDS: Enoxaparin Sodium 40 MG/0.4 ML SYRINGE SC SCH (20:31)
[2019-05-28] MEDS: Losartan 25 MG TAB PO SCH (20:32)
[2019-05-28] MEDS: Atorvastatin Calcium 40 MG TAB PO SCH (20:32)
[2019-05-29] MEDS: Acetaminophen 1,000 MG in Premix Bag 1 BAG IVPB SCH ×2 (00:06→05:26)
[2019-05-29] MEDS: Ketorolac Tromethamine 30 MG/ML VIAL IVP SCH ×3 (00:07→12:06)
[2019-05-29] MEDS: D5 1/2 NS w/20 mEq KCL 1,000 ML IV SCH ×2 (06:38→14:21)
[2019-05-29] MEDS: Amiodarone 200 MG TAB PO SCH (08:48)
[2019-05-29 16:26] VITALS: BP 120/71; TEMP 98.6
== END 2019-05-29 18:30 | disposition home or self-care (01) | DRG 331 ==
LOC: EDSTATUS 05-05 10:00 → SURG A 05-26 05:14 → SJJU 05-26 14:24
PROVIDERS: ADMIT Specialist; ATTEND Specialist
PROC: 0DB80ZZ Excision of Small Intestine, Open Approach (ICD-10-PCS; principal; 2019-05-26)
PROC: 0WQF0ZZ Repair Abdominal Wall, Open Approach (ICD-10-PCS; 2019-05-26)
DX: K43.5 Parastomal hernia without obstruction or gangrene (principal); K43.2 Incisional hernia without obstruction or gangrene; K66.0 Peritoneal adhesions (postprocedural) (postinfection); E78.5 Hyperlipidemia, unspecified; I10 Essential (primary) hypertension; I48.91 Unspecified atrial fibrillation; I25.10 Atherosclerotic heart disease of native coronary artery without angina pectoris; G47.00 Insomnia, unspecified; R13.19 Other dysphagia; H91.8X3 Other specified hearing loss, bilateral; E83.52 Hypercalcemia; E66.9 Obesity, unspecified; I45.10 Unspecified right bundle-branch block; Z79.01 Long term (current) use of anticoagulants; Z68.30 Body mass index [BMI] 30.0-30.9, adult; Z87.891 Personal history of nicotine dependence
CPT/HCPCS: 36415; 80048; 85025; 88307; 94640; J0131; J0694; J1100; J1650; J1885; J2001; J2150; J2250; J2270; J2405; J2704; J3010; J3490; J7620; S0028

== ENCOUNTER 2019-05-15 09:13 | Outpatient (CLI) | payer MEDICARE, OTHER ==
[2019-05-15 11:45] LABS: #Eosinphils 0.1 thou/uL (0.0-0.7); #Lymphocytes 0.6 thou/uL (1.20-3.40); #Monocytes 0.7 thou/uL (0.11-0.59); #Neutrophils 3.8 thou/uL (1.40-6.50); %Basophils 0.3 % (0.0-1.0); %Eosinophils 1.5 % (0.0-10.0); %Lymphocytes 12.1 % (21.0-51.0); %Monocytes 12.6 % (0.0-10.0); %Neutrophils 73.4 % (42.0-75.0); Hemoglobin 13.4 g/dL (14.0-18.0); Mean Corpuscular HGB CONC 34.1 g/dL (32.0-36.0); Mean Corpuscular Volume 96.9 fL (78.0-98.0); Mean Platelet Volume 8.3 fL (7.4-10.4); Platelet Count 156 thou/uL (130-400); RBC Distribution Width 14.4 % (11.5-14.5); Red Blood Cell (RBC) Count 4.06 mill/uL (4.70-6.10); White Blood Cell (WBC) Count 5.2 thou/uL (4.8-10.8)
[2019-05-15 11:57] LABS: Hemoglobin A1c 5.1 % (4.0-6.0)
[2019-05-15 12:07] LABS: Anion Gap 12 mmol/L (10-20); BUN (Urea Nitrogen) 19 mg/dL (8.4-25.7); Calc. Creatinine Clearance 0 mL/min (70-130); Calcium 9.5 mg/dL (7.8-10.44); Carbon Dioxide 25 mmol/L (23-31); Chloride 105 mmol/L (98-107); Estimated GFR-MDRD 56; Glucose 100 mg/dL (83-110); Potassium 3.9 mmol/L (3.5-5.1); Sodium 138 mmol/L (136-145)
--- NOTE | 2019-05-15 12:23 | RAD ---
2 VIEWS CHEST: Date: 05/15/19 COMPARISON: 01/25/19. HISTORY: Preoperative radiograph. FINDINGS: Single view of the chest shows normal sized cardiomediastinal silhouette with atherosclerotic calcifi cations in the aorta. There is no evidence of consolidation, mass, or pleural effusion. IMPRESSION: No evidence of acute cardiopulmonary disease. POS: [facility]
--- NOTE | 2019-05-15 16:31 | EKG ---
Test Reason : Blood Pressure : / mmHG Vent. Rate : 068 BPM Atrial Rate : 068 BPM P-R Int : 196 ms QRS Dur : 136 ms QT Int : 446 ms P-R-T Axes : 020 -56 027 degrees QTc Int : 474 ms Sinus rhythm with Premature atrial complexes Right bundle branch block Left anterior fascicular block Bifascicular block Abnormal ECG When compared with ECG of 11-FEB-2019 11:18, Premature atrial complexes are now Present Confirmed by KAYY ELDRIDGE, SAbhishek ([id number]) on 05/15/2019 4:31:39 PM Referred By: LUÍS Confirmed By:DR. Marianela SULTANA MD
== END 2019-05-15 09:14 | disposition home or self-care (01) ==
LOC: LABBT 09:13
PROVIDERS: ATTEND Specialist
DX: Z01.818 Encounter for other preprocedural examination (principal); K43.5 Parastomal hernia without obstruction or gangrene; K43.2 Incisional hernia without obstruction or gangrene
CPT/HCPCS: 71046; 80048; 83036; 85025; 93005; 93010

== ENCOUNTER 2019-06-05 11:39 | Inpatient (IN) | payer MEDICARE, OTHER ==
[~2019-06-05 11:39] MED LIST changes: +Dexamethasone 20 MG/5 ML VIAL ONE; +Glycopyrrolate 0.2 MG/ML 5 ML SYRINGE ONE; -ISOVUE-370 76%-LOCM 1 ML ONE; -Iopamidol 370 76% 50 ML VIAL FS ONE; +Lidocaine 1% PF 5 ML VIAL ONE; +Ondansetron PF 4 MG/2 ML Vial ONE; +PROPOFOL 200 MG/20 ML VIAL ONE; +Rocuronium Bromide 10 MG/ML (10ML VIAL) ONE
[2019-06-05] MEDS ORDERED: Fentanyl 100 MCG/2 ML VIAL ONE ×4 (14:14→18:41)
[2019-06-05] MEDS ORDERED: Bupivacaine/Epinephrine 0.25% 30 ML VIAL ONE (14:14)
[2019-06-05] MEDS ORDERED: Meperidine HCl/PF 25 MG/ML VIAL ONE (17:55)
[2019-06-05] MEDS ORDERED: diphenhydrAMINE 25 MG CAP PO PRN (18:31)
[2019-06-05] MEDS ORDERED: Promethazine HCl 25 MG/ML VIAL IM PRN (18:31)
[2019-06-05] MEDS ORDERED: diphenhydrAMINE 50 MG/ML VIAL IM PRN (18:31)
[2019-06-05] MEDS ORDERED: fentaNYL Citrate/PF 2,000 MCG in Sodium Chloride 0.9% 60 ML IV PRN (18:31)
[2019-06-05] MEDS ORDERED: Naloxone HCl 0.4 mg/ml Vial IV PRN (18:31)
[2019-06-05] MEDS ORDERED: Ondansetron PF 4 MG/2 ML Vial IVP PRN ×2 (18:31→19:52)
[2019-06-05] MEDS ORDERED: Zolpidem Tartrate 5 MG TAB PO PRN (18:31)
[2019-06-05] MEDS ORDERED: diphenhydrAMINE 50 MG/ML VIAL IVP PRN (18:31)
[2019-06-05] MEDS ORDERED: Communication Order-Pharmacy FS SCH (18:45)
[2019-06-05] MEDS ORDERED: Dextrose 50% Abboject 50 ML SYRINGE SLOW IVP PRN (19:52)
[2019-06-05] MEDS ORDERED: traZODone HCl 150 MG TAB PO PRN (19:52)
[2019-06-05] MEDS ORDERED: hydrALAZINE 20 MG/ML VIAL SLOW IVP PRN (19:52)
[2019-06-05] MEDS ORDERED: Dextrose 5% in Water 1,000 ML IV PRN (19:52)
[2019-06-05] MEDS ORDERED: Azelastine 137 MCG/Spray 30 ML NS PRN (19:52)
[2019-06-05] MEDS: Losartan 25 MG TAB PO SCH (20:26)
[2019-06-05] MEDS: D5 1/2 NS w/20 mEq KCL 1,000 ML IV SCH (20:40)
[2019-06-05] MEDS: CEFAZOLIN 2 GM in Premix Bag 1 BAG IVPB SCH (22:39)
[2019-06-06] MEDS: CEFAZOLIN 2 GM in Premix Bag 1 BAG IVPB SCH ×3 (05:24→22:30)
[2019-06-06] MEDS: D5 1/2 NS w/20 mEq KCL 1,000 ML IV SCH ×4 (05:28→23:49)
[2019-06-06 05:46] LABS: #Lymphocytes 0.3 thou/uL (1.20-3.40); #Monocytes 0.7 thou/uL (0.11-0.59); #Neutrophils 13.2 thou/uL (1.40-6.50); %Basophils 0.1 % (0.0-1.0); %Eosinophils 0.3 % (0.0-10.0); %Lymphocytes 2.4 % (21.0-51.0); %Monocytes 4.7 % (0.0-10.0); %Neutrophils 92.6 % (42.0-75.0); Hemoglobin 10.9 g/dL (14.0-18.0); Mean Corpuscular HGB CONC 33.1 g/dL (32.0-36.0); Mean Corpuscular Hemoglobin 33.1 pg (27.0-31.0); Mean Platelet Volume 7.9 fL (7.4-10.4); Platelet Count 370 thou/uL (130-400); RBC Distribution Width 13.6 % (11.5-14.5); Red Blood Cell (RBC) Count 3.28 mill/uL (4.70-6.10); White Blood Cell (WBC) Count 14.2 thou/uL (4.8-10.8)
[2019-06-06 06:12] LABS: Anion Gap 13 mmol/L (10-20); BUN (Urea Nitrogen) 13 mg/dL (8.4-25.7); Calc. Creatinine Clearance 63 mL/min (70-130); Calcium 8.7 mg/dL (7.8-10.44); Carbon Dioxide 27 mmol/L (23-31); Chloride 103 mmol/L (98-107); Estimated GFR-MDRD 63; Glucose 169 mg/dL (83-110); Potassium 4.7 mmol/L (3.5-5.1); Sodium 138 mmol/L (136-145)
--- NOTE | 2019-06-06 08:03 | RAD ---
EXAM: Chest one view: HISTORY: Atelectasis COMPARISON: 05/15/2019 FINDINGS: NG tube in place. Increased bronchovascular markings particularly in the bases with less inspiration than the prior study. Probable bibasilar subsegmental atelectasis. Heart size: Within normal limits. Lungs: No confluent pneumonia. No evidence for pneumonia, pleural effusion, acute edema, or pneumothorax, or other significant acute process. IMPRESSION: Increased markings in the bases probably representing some component of subsegmental atelectasis.
[2019-06-06] MEDS: Amiodarone 200 MG TAB PO SCH (09:00)
[2019-06-06] MEDS: Enoxaparin Sodium 40 MG/0.4 ML SYRINGE SC SCH (09:01)
[2019-06-06] MEDS: Famotidine/PF 20 mg/2ml Vial SLOW IVP SCH (09:01)
[2019-06-06] MEDS ORDERED: Ketorolac Tromethamine 30 MG/ML VIAL IVP PRN (12:26)
[2019-06-06] MEDS ORDERED: Acetaminophen 1,000 MG in Premix Bag 1 BAG IVPB PRN (12:26)
[2019-06-06] MEDS ORDERED: Ketorolac Tromethamine 30 MG/ML VIAL IVP SCH (12:30)
[2019-06-06] MEDS ORDERED: Acetaminophen 1,000 MG in Premix Bag 1 BAG IVPB SCH ×2 (12:30→18:00)
--- NOTE | 2019-06-06 13:21 | PRG ---
DATE OF SERVICE: 06/06/2019 SUBJECTIVE: Michael Lee is an 83-year-old male, seen for Dr. Guillen today. He is doing well. He has been able to urinate without problems. His NG tube output is not recorded, but it appears mostly saliva in the canister. NATHANAEL drains; A, B, and C are serosanguineous and 60, 90, and 90 mL respectively. OBJECTIVE: LUNGS: Clear to auscultation. CARDIAC: Regular rate and rhythm without murmur or gallop. ABDOMEN: Soft. Occasional bowel sounds, nontender. Surgical dressing dry. LABORATORY DATA: This morning, his basic metabolic profile is normal and his white count is 14 and hemoglobin 10. ASSESSMENT: Doing well. PLAN: Removal of NG tube. Continue ice chips, sips of water. Begin clear liquids in the morning slowly. Increase ambulation. Await bowel function. Overall, he is doing well. Job ID: [id number]
[2019-06-06] MEDS: Acetaminophen 650 MG/20.3 ML UDCUP PO SCH ×2 (18:22→23:50)
[2019-06-06] MEDS: Losartan 25 MG TAB PO SCH (20:26)
[2019-06-06] MEDS: Lactated Ringer's 1,000 ML IV SCH (23:54)
[2019-06-07 00:12] LABS: #Eosinphils 0.1 thou/uL (0.0-0.7); #Lymphocytes 0.7 thou/uL (1.20-3.40); #Monocytes 0.9 thou/uL (0.11-0.59); #Neutrophils 9.5 thou/uL (1.40-6.50); %Eosinophils 0.6 % (0.0-10.0); %Lymphocytes 5.8 % (21.0-51.0); %Monocytes 7.6 % (0.0-10.0); Hemoglobin 9.5 g/dL (14.0-18.0); Mean Corpuscular HGB CONC 32.9 g/dL (32.0-36.0); Mean Platelet Volume 7.3 fL (7.4-10.4); Platelet Count 336 thou/uL (130-400); RBC Distribution Width 13.7 % (11.5-14.5); Red Blood Cell (RBC) Count 2.89 mill/uL (4.70-6.10); White Blood Cell (WBC) Count 11.1 thou/uL (4.8-10.8)
[2019-06-07 00:24] LABS: Anion Gap 11 mmol/L (10-20); BUN (Urea Nitrogen) 16 mg/dL (8.4-25.7); Calc. Creatinine Clearance 42 mL/min (70-130); Calcium 8.2 mg/dL (7.8-10.44); Carbon Dioxide 27 mmol/L (23-31); Chloride 101 mmol/L (98-107); Estimated GFR-MDRD 40; Glucose 116 mg/dL (83-110); Potassium 4.1 mmol/L (3.5-5.1); Sodium 135 mmol/L (136-145)
[2019-06-07] MEDS ORDERED: Sodium Chloride 0.9% 500 ML IV SCH (03:15)
[2019-06-07] MEDS: Lactated Ringer's 1,000 ML IV SCH (05:42)
[2019-06-07] MEDS: Acetaminophen 650 MG/20.3 ML UDCUP PO SCH ×3 (06:31→17:21)
[2019-06-07] MEDS: CEFAZOLIN 2 GM in Premix Bag 1 BAG IVPB SCH ×3 (06:32→21:25)
--- NOTE | 2019-06-07 08:09 | OP ---
DATE OF PROCEDURE: 06/05/2019 PREOPERATIVE DIAGNOSIS: Fascial dehiscence following recent open repair of ventral hernia and repair of large parastomal hernia. POSTOPERATIVE DIAGNOSIS: Fascial dehiscence following recent open repair of ventral hernia and repair of large parastomal hernia. PROCEDURE PERFORMED: Complex closure of abdominal wall dehiscence with component separation and biologic mesh placement. ANESTHESIA: General endotracheal. INDICATIONS: The patient is an 83-year-old white male. On May 26, I performed a surgery for a large ventral hernia and a large parastomal hernia. Unfortunately, there was a small bowel injury at the time of his surgery and his hernia repairs had to be performed without mesh. He returns at this time 10 days after his surgery, and upon examination in my office, he clearly had a fascial dehiscence with small bowel visible immediately under the skin. He is taken to the operating room emergently for repair. DESCRIPTION OF OPERATION: Informed consent was obtained, the patient was taken to the operating room where general endotracheal anesthesia was obtained with the patient in supine position. His ileostomy appliances were excluded before prepping the abdomen. Daisy were removed. As expected, the intra-abdominal contents were immediately under the skin. I quickly bluntly dissected the area and it appeared that all of the sutures had pulled out of the right side of the abdomen and were still intact on the left side of the fascia. These sutures were removed. I then dissected intra-abdominal contents. I wanted to make sure that there was no evidence of intra-abdominal problems. There were some adhesions as expected in the area of the surgery 10 days ago. These were mostly broken down with blunt dissection. The area of the prior small bowel resection anastomosis was identified and found to be entirely normal. After all adhesions were broken down, the area was irrigated with 2 L of warm saline. Attention was turned to the prior parastomal hernia repair. This was still intact. The sutures between the fascia and the small bowel were intact as well. Small bowel appeared entirely viable at that location. Attention was returned to the ventral hernia. There was found to be too much tension to close this primarily. I decided to proceed with a component separation. I dissected the skin and subcutaneous fat off the abdominal wall extending laterally until I was well beyond the rectus sheath on each side. I then made an incision in the fascia of the external oblique extending from the ribs down as far as I could towards the pelvis. The ileostomy placement limited how far I could go to the right, and the fact that the incision did not go all the way down to the pelvis, limited the dissection on the left. Nonetheless, the area of the hernia that needed to be closed was entirely mobilized with the component separation. Meticulous hemostasis was obtained. The defect measured 15 cm in a longitudinal direction. The fascial edges were about 9 cm at rest in the midline. With the mobility gained from the separation they were able to be approximated without undue tension. I chose a 20 x 16 cm sheet of Strattice mesh. This was obtained and the corners were trimmed for placement in the abdominal cavity. I then placed 10 stay sutures of 0 PDS. These were placed at intervals around the circumference. The mesh was then placed intra-abdominal and the stay sutures were withdrawn through the anterior aspect of the fascia using a GraNee needle. Each of the stay sutures was secured given the mesh and appropriate snug position in the intraperitoneal location. I then placed interrupted sutures of 3-0 PDS between the fascia and the edge of the mesh between each of the stay sutures. The fascia was then debrided and closed using interrupted sutures of #1 Prolene placed in a [id number] fashion. Several of these sutures incorporated partial-thickness bites of the biologic mesh. Before fully closing the fascia, I placed a #19 round fluted drain between the fascia and the mesh. This was brought out medially on the left side and secured with 3-0 nylon suture. I then irrigated the subcutaneous space with 2 L of warm saline. I placed two additional #19 round fluted drain in the subcutaneous space and secured these with 3-0 nylon suture. The subcutaneous tissue was approximated with a running suture of 3-0 Vicryl, and the skin edges were approximated skin daisy. Dry gauze dressing was placed externally. An abdominal binder was placed well. Job ID: [id number]
[2019-06-07] MEDS: D5 1/2 NS w/20 mEq KCL 1,000 ML IV SCH (08:29)
[2019-06-07] MEDS: Famotidine/PF 20 mg/2ml Vial SLOW IVP SCH (08:29)
[2019-06-07] MEDS: Enoxaparin Sodium 40 MG/0.4 ML SYRINGE SC SCH (08:29)
[2019-06-07] MEDS: Amiodarone 200 MG TAB PO SCH (08:56)
[2019-06-07] MEDS ORDERED: traMADol HCl 50 MG TAB PO PRN (16:39)
--- NOTE | 2019-06-07 17:10 | PRG ---
DATE OF SERVICE: 06/07/2019 SUBJECTIVE: Michael Lee is seen for Dr. Guillen today. The patient is doing well. He feels much better. He has passed flatus and had stool. He is ambulating, feels much better. OBJECTIVE: LUNGS: Clear to auscultation. CARDIAC: Regular rate and rhythm without murmur or gallop. ABDOMEN: Soft and protuberant. The patient states this as baseline abdominal condition status. Colostomy, healthy stool in the bag. Midline wound looks good. ASSESSMENT AND PLAN: The patient is doing well. Would advance his diet as tolerated. His NATHANAEL drains are putting out 45, 65, and 35 respectfully NATHANAEL A, B, and C. He may be able to go home in the next day or 2 and follow up as an outpatient. Job ID: [id number]
[2019-06-07] MEDS ORDERED: Acetaminophen 500 MG TAB PO PRN (18:00)
[2019-06-07] MEDS ORDERED: Atorvastatin Calcium 40 MG TAB PO SCH (21:00)
[2019-06-08] MEDS: CEFAZOLIN 2 GM in Premix Bag 1 BAG IVPB SCH (05:50)
[2019-06-08] MEDS ORDERED: Stress 600 With Zinc 1 TAB PO SCH (09:00)
[2019-06-08] MEDS ORDERED: Aspirin 81 mg Enteric Coated Tablet PO SCH (09:00)
[2019-06-08] MEDS: Enoxaparin Sodium 40 MG/0.4 ML SYRINGE SC SCH (09:29)
[2019-06-08] MEDS: Famotidine/PF 20 mg/2ml Vial SLOW IVP SCH (09:29)
[2019-06-08] MEDS: Polyethylene Glycol 3350 17 GM Packet PO SCH ×2 (09:30→09:36)
[2019-06-08] MEDS: Amiodarone 200 MG TAB PO SCH (09:31)
[2019-06-08] MEDS ORDERED: Piperacillin/Tazobactam 3.375 GM in Sodium Chloride 0.9% 100 ML IVPB SCH (12:00)
[2019-06-08 12:23] VITALS: BP 102/66; TEMP 98.4
--- NOTE | 2019-06-08 15:43 | PRG ---
DATE OF SERVICE: 06/08/2019 SUBJECTIVE: Michael Lee is doing well today. He has tolerated his diet. He is having bowel movements, passing flatus. He wants to go home. OBJECTIVE: VITAL SIGNS: 98.4 degrees, 68, 94%, and 102/66. Laboratories, none. NATHANAEL output for 24 hours A 45, B 60, and C 25. His wound looks good. ASSESSMENT AND PLAN: Doing well after component separation and biological mesh reinforcement. Plan discharge home after removing drain C. The patient will follow up with Dr. Guillen at the end of the week. He is not having any significant pain. He will take Tylenol and ibuprofen [id number] for pain. I resumed his home medications. He has been instructed on drain care, stripping the tubing. He will wear his abdominal binder, removing it to shower. Job ID: [id number]
[2019-06-21] MEDS ORDERED: Ibuprofen 600 MG TAB PO PRN (16:39)
== END 2019-06-08 16:33 | disposition home or self-care (01) | DRG 909 ==
LOC: SDC 11:39 → SURG A 18:32
PROVIDERS: ADMIT Specialist; ATTEND Specialist
PROC: 0WUF0JZ Supplement Abdominal Wall with Synthetic Substitute, Open Approach (ICD-10-PCS; principal; 2019-06-05)
PROC: 0JQ80ZZ Repair Abdomen Subcutaneous Tissue and Fascia, Open Approach (ICD-10-PCS; 2019-06-05)
DX: T81.32XA Disruption of internal operation (surgical) wound, not elsewhere classified, initial encounter (principal); R13.19 Other dysphagia; E83.52 Hypercalcemia; K43.5 Parastomal hernia without obstruction or gangrene; E78.5 Hyperlipidemia, unspecified; I10 Essential (primary) hypertension; I25.10 Atherosclerotic heart disease of native coronary artery without angina pectoris; G47.00 Insomnia, unspecified; H91.93 Unspecified hearing loss, bilateral; Y83.8 Other surgical procedures as the cause of abnormal reaction of the patient, or of later complication, without mention of misadventure at the time of the procedure; K43.9 Ventral hernia without obstruction or gangrene; Z85.038 Personal history of other malignant neoplasm of large intestine; Z98.61 Coronary angioplasty status; Z87.891 Personal history of nicotine dependence
CPT/HCPCS: 36415; 71045; 80048; 85025; 86850; 86900; 86901; 87070; 87077; 87186; 87205; 94640; J0131; J0690; J1100; J1650; J1885; J1956; J2001; J2175; J2405; J2543; J2704; J3010; J3490; J7620; Q4100; S0028

== ENCOUNTER 2019-06-19 10:01 | Outpatient (CLI) | payer MEDICARE, OTHER ==
--- NOTE | 2019-06-19 11:59 | CT ---
ABDOMEN CT WITHOUT CONTRAST PELVIC CT WITHOUT CONTRAST: HISTORY: Left ureteral stricture. Recurrent renal calculi. COMPARISON: 03/03/2019. FINDINGS: ABDOMEN CT: Lung bases:Chronic changes. Heart size: Normal heart size. No significant pericardial fluid. Calcification of the aortic valve an d mitral annulus. Aorta: Elongation with atherosclerotic change. No aneurysm or periaortic fat stranding. Solid organs: Limited evaluation due to lack of IV contrast. Grossly no solid organ abnormality. Lymph nodes: No gastrohepatic, retrocrural or periportal lymphadenopathy. Gallbladder: Unremarkable. Mesentery: No mass, lymphadenopathy, or free air. Small amount of fluid tracking along the paracolic gutters. Small amount of stable straightening of the abdominal mesentery which is nonspecific. Kidneys: Bilaterally, no hydronephrosis, nephrolithiasis or perinephric fat stranding. Bilateral uret ers have a normal caliber. No hydroureter, periureteral fat stranding or ureterolithiasis. Interval removal of a left-sided ureteral stent. Alimentary canal: Limited evaluation due to lack of oral contrast. No evidence of bowel obstruction. Anastomosis between the small bowel loops is demonstrated, in the right upper quadrant. There is an ostomy in the right lower quadrant. There is an adjacent parastomal fluid collection measuring 5.4 x 2.5 cm. Previously noted small bowel herniation at the level of the ostomy has resolved. Anterior abdominal wall: Postsurgical changes with stranding and probable fluid are noted. No signifi cant air to suggest abscess. CT PELVIS: No mass, adenopathy, free air or free fluid. Urinary bladder: Unremarkable. Roberts's pouch is identified, unchanged. Osseous structures: No lytic or blastic lesions IMPRESSION: 1. No evidence of obstructive uropathy. 2. Postsurgical changes compatible with recent laparotomy. Presumed repair of previous peristomal her john. Previous noted segment of herniated small bowel are no longer evident. There is a hypodensity at the operative site which may represent a post operative collection. 3. Surgical anastomosis in the right hemiabdomen is identified. Transcribed Date/Time: 06/19/2019 12:25 PM
== END 2019-06-19 10:02 | disposition home or self-care (01) ==
LOC: BICCT 10:01
PROVIDERS: ATTEND Urology
DX: N13.5 Crossing vessel and stricture of ureter without hydronephrosis (principal); N20.0 Calculus of kidney; Z98.890 Other specified postprocedural states
CPT/HCPCS: 74176

== ENCOUNTER 2019-07-02 17:32 | Inpatient (IN) | payer MEDICARE, OTHER ==
[2019-07-02] MEDS ORDERED: Norepinephrine 4 MG/4 ML VIAL ONE (17:43)
[2019-07-02 17:53] LABS: #Eosinphils 0.1 thou/uL (0.0-0.7); #Lymphocytes 0.6 thou/uL (1.20-3.40); #Monocytes 0.6 thou/uL (0.11-0.59); %Basophils 0.2 % (0.0-1.0); %Eosinophils 0.7 % (0.0-10.0); %Lymphocytes 8.5 % (21.0-51.0); %Monocytes 8.3 % (0.0-10.0); %Neutrophils 82.3 % (42.0-75.0); Mean Corpuscular HGB CONC 33.4 g/dL (32.0-36.0); Mean Corpuscular Hemoglobin 31.6 pg (27.0-31.0); Mean Corpuscular Volume 94.7 fL (78.0-98.0); Mean Platelet Volume 8.5 fL (7.4-10.4); Platelet Count 196 thou/uL (130-400); RBC Distribution Width 14.2 % (11.5-14.5); Red Blood Cell (RBC) Count 3.17 mill/uL (4.70-6.10); White Blood Cell (WBC) Count 7.2 thou/uL (4.8-10.8)
[2019-07-02 18:13] LABS: ALT (SGPT) 27 U/L (8-55); AST (SGOT) 31 U/L (5-34); Albumin 3.3 g/dL (3.4-4.8); Alkaline Phosphatase 75 U/L (40-110); Anion Gap 13 mmol/L (10-20); BUN (Urea Nitrogen) 22 mg/dL (8.4-25.7); Bilirubin, Total 0.5 mg/dL (0.2-1.2); CK (CPK) 28 U/L (30-200); Calc. Creatinine Clearance 0 mL/min (70-130); Calcium 8.7 mg/dL (7.8-10.44); Carbon Dioxide 22 mmol/L (23-31); Chloride 105 mmol/L (98-107); Estimated GFR-MDRD 24; Globulin 2.6 g/dL (2.4-3.5); Glucose 111 mg/dL (83-110); Magnesium 1.6 mg/dL (1.6-2.6); Potassium 4.4 mmol/L (3.5-5.1); Protein, Total 5.9 g/dL (5.8-8.1); Sodium 136 mmol/L (136-145)
[2019-07-02 18:19] LABS: CKMB 1.5 ng/mL (0-6.6)
[2019-07-02] MEDS ORDERED: fentaNYL Citrate/PF 2,000 MCG in Sodium Chloride 0.9% 60 ML IV SCH (19:03)
--- NOTE | 2019-07-02 19:11 | RAD ---
Exam: Chest one view HISTORY:Status post central line placement Comparison: 06/06/2019 FINDINGS: Right-sided vascular catheter with the distal tip projecting over the expected region of the superior vena cava. Cardiac silhouette: Normal Aorta: Atherosclerosis of the aortic knob Pulmonary vessels: Normal Costophrenic angles: Clear LUNGS: No masses or consolidation. Pneumothorax: None Osseous abnormalities: None IMPRESSION: 1. Right-sided vascular catheter. Distal tip projects over the superior vena cava. No pneumothorax.
[2019-07-02] MEDS ORDERED: Lidocaine 1% (PF) 30 ML VIAL ONE (19:53)
[2019-07-02] MEDS ORDERED: Fentanyl 100 MCG/2 ML VIAL ONE (20:31)
[2019-07-02] MEDS ORDERED: Ondansetron PF 4 MG/2 ML Vial IVP PRN (20:40)
[2019-07-02] MEDS ORDERED: Ondansetron ODT 4 MG TAB PO PRN (20:40)
--- NOTE | 2019-07-02 22:08 | CCL ---
DATE: 07/02/19 PROCEDURE: Temporary pacemaker insertion. Patient is brought to the Cardiac Catheterization Lab in an urgent situation. He had episodes of comp lete heart block. He was transcutaneously pacing intermittently. Very uncomfortable with the transcut aneous pacing. The patient was prepped and draped in the usual fashion. The right groin was anesthetized with 1% Xyl ocaine. Under ultrasound guidance, an introducer sheath was placed. Following that a transvenous pace maker was placed under fluoroscopic guidance into the right ventricular apex. The thresholds were les s than 1. The sheath was sutured into place and the temporary pacemaker lead was fixed. The patient w as sent to the Intensive Care Unit in a stable condition. CONCLUSION: Successful temporary pacemaker insertion.
[2019-07-02] MEDS: Sodium Chloride 0.9% 1,000 ML IV SCH (22:11)
[2019-07-02] MEDS: Guaifenesin DM 100-10/5 ML UDCUP PO PRN (22:18)
[2019-07-02 22:23] LABS: CKMB 2.3 ng/mL (0-6.6)
[2019-07-02] MEDS: Acetaminophen 325 MG TAB PO PRN (22:27)
[2019-07-02] MEDS ORDERED: Norepinephrine 8 MG in Dextrose 5% in Water 242 ML IVPB PRN (22:27)
[2019-07-02 23:00] VITALS: BMI 27.1
[2019-07-03 00:04] LABS: Troponin I 0.066 ng/mL (< 0.028)
--- NOTE | 2019-07-03 01:57 | HP ---
PRIMARY CARE PHYSICIAN: Becky Gonzales MD PROJECT MANAGEMENT DIRECTOR: Alma Rosa Lyons MD CHIEF COMPLAINT: Not acting right and extremely weak. HISTORY OF PRESENT ILLNESS: Mr. Lee is a very pleasant 83-year-old gentleman, who has a history of hypertension as well as a history of atrial fibrillation. He was in his usual state of health until around 3:00 p.m. this afternoon. He says he was having a headache and took one of his 's tizanidine. After that, he got sleepy and took a nap. His says that after he woke up from the nap, he was "out of it". She says that he could barely talk. His eyes were half open and he was extremely weak. The patient says that he felt "blurry". He denies feeling any more short of breath than usual. He says he is always short of breath. He denies having any chest pain. He was brought to the emergency room, where he was evaluated and found that his heart rate was in the 30s. Transcutaneous pacers were placed and he is being admitted for further evaluation. Currently, the patient is alert and oriented. He does note some pain, but it is from the pacer's shocks. He does not seem any more short of breath currently and otherwise from the discomfort of the pacer, has no other complaints. REVIEW OF SYSTEMS: Other than feeling a bit weak lately, he does not have any other symptoms and all systems were reviewed and are negative except for that previously mentioned. PAST MEDICAL HISTORY: Significant for hypertension, chronic atrial fibrillation, hypercholesterolemia and he says "kidney problems". 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 PAST SURGICAL HISTORY: Includes colon resection. He recently had hernia repair. ALLERGIES: THERE ARE NO KNOWN DRUG ALLERGIES. SOCIAL HISTORY: He is . He is a nonsmoker. He does admit to drinking a couple of glasses of wine a day. He is actually a former smoker. He would like to be a full code and his is his surrogate decision maker. FAMILY HISTORY: He says his daughter has a history of severe COPD, another daughter had a heart attack and his mother had Meniere disease. CURRENT MEDICATIONS: He is not really sure of all of the medicines, but says that he is on; 1. Aspirin a day. 2. Cholesterol medicine. 3. Amiodarone. 4. Pantoprazole. 5. Vitamin B complex. 6. He said he had been on a blood thinner, but he is not any more. PHYSICAL EXAMINATION: GENERAL: He is alert and oriented. He appears to be in no acute distress. He is well developed and well nourished. VITAL SIGNS: Blood pressure initially was 68/37 with a heart rate of 34, respiratory rate of 18. Currently, the blood pressure is up to 117/60, heart rate of 60, which is paced, respiratory rate of 18, temperature is 98.2. HEENT: Pupils are equal, round, and reactive. Extraocular muscles are intact. His sclerae anicteric. Throat, there is no erythema, no exudates. NECK: No adenopathy. No bruits. LUNGS: Clear. There is some mild wheezing. No rhonchi. CARDIOVASCULAR: Heart sounds are very distant and are actually masked by the pacer discharges. ABDOMEN: Soft. He does have a midline abdominal scar. Part of this scar is unhealed and there is some mild serous drainage from the wound. There is no rebound or guarding. No organomegaly. EXTREMITIES: He has some trace edema. There is no calf tenderness. No joint effusions. NEUROLOGIC: His cranial nerves are intact. Muscle strength is intact. SKIN AND INTEGUMENT: No significant skin changes. No rash. LABORATORY DATA AND IMAGING: His white blood cell count 7.2, hemoglobin 10, hematocrit is 30.1, and platelet count is 196. D-dimer 0.8. Sodium 136, potassium 4.4, chloride is 105, CO2 is 22, BUN of 22, creatinine 2.58, glucose is 111. Troponin is pending. EKG is a paced rhythm. Chest x-ray, there is normal heart size and no evidence of any increased pulmonary vascular markings. This is by my reading. ASSESSMENT: This is an 83-year-old gentleman, who presents with; 1. Altered mental status and with possibly a symptomatic bradycardia and he was also hypotensive requiring pressors. He is being admitted to the ICU. We will continue the transcutaneous pacing as well as the Levophed drip. Consult Cardiology emergently for further recommendations. 2. History of atrial fibrillation. It is possible that this could represent a tachy liat syndrome due to his atrial fibrillation. It is unclear whether or not the tizanidine had anything to do with this and it may have been just a coincidence. We will defer to Cardiology. 3. Chronic kidney disease. This appears to be stage IV. He does have some mild acute on chronic kidney injury as his previous creatinine was about half of what it is now. This could be due to the current presentation. Otherwise, further recommendations to follow. Job ID: [id number]
--- NOTE | 2019-07-03 02:07 | CON ---
DATE OF CONSULTATION: 07/02/2019 REASON FOR CONSULTATION: Complete heart block and periods of asystole. HISTORY OF PRESENT ILLNESS: Mr. Michael Lee is an 83-year-old gentleman. The patient was feeling relatively well up until today. He started having weakness and fatigue and then had episode of unresponsiveness. He was brought to the emergency room. He is found to have severe bradycardia. He was also hypotensive. Transcutaneous pacing was done and fortunately did capture, but he is very uncomfortable with the transcutaneous pacing. The patient continues to complain of discomfort with the transcutaneous pacemaker. He is not having any chest pain. The patient has a history of right bundle-branch block. He previously was evaluated by Dr. Lyons earlier this year in January. He subsequently underwent stress testing in our office, which showed normal left ventricular function with normal perfusion. The patient has been doing well up until today. MEDICATIONS: At home, he was taking amiodarone 200 mg a day. The patient is unclear about a lot of his other medications. REVIEW OF SYSTEMS: CONSTITUTIONAL: Positive for weakness, fatigue, and near syncope. VISION: No changes. HEARING: No changes. PULMONARY: He is short of breath when the pacemaker is pacing. CARDIAC: As outlined above. GASTROINTESTINAL: No nausea or vomiting. SKIN: No rashes. PHYSICAL EXAMINATION: GENERAL: This is an apprehensive elderly gentleman who gets very agitated and upset with transcutaneous pacing. VITAL SIGNS: His blood pressure initially was in the 50s systolic. He was started on Levophed, now it is in the 120 systolic. HEENT: Eyes, sclerae are nonicteric. Mouth, mucous membranes moist. NECK: Supple. No lymphadenopathy. LUNGS: Clear. CARDIAC: Normal S1, normal S2. I do not hear murmur, rub, or gallop. ABDOMEN: Soft and nontender. EXTREMITIES: Warm, dry. No clubbing. No cyanosis. There is no edema. PERTINENT LABORATORY DATA: Creatinine is 2.58, previous creatinine 1.34, just a few days ago, it was 1.66 before that; potassium 4.4. CPK-MB 1.5. On EKG, there are periods of complete heart block with T-waves. Other periods when he is actually conducting through normally. Chest x-ray revealed atherosclerosis in the aortic arch, transcutaneous pacer in place. ASSESSMENT: 1. Periodic or intermittent complete heart block with essential asystole. 2. Highly symptomatic with transcutaneous pacing. He has previous right bundle-branch block. PLAN: 1. Temporary transvenous pacer placed. 2. We will need a dual-chamber device to be placed tomorrow by Dr. Lyons. 3. We will draw cardiac enzymes tomorrow morning. Job ID: [id number]
[2019-07-03 02:25] LABS: #Eosinphils 0.1 thou/uL (0.0-0.7); #Lymphocytes 0.9 thou/uL (1.20-3.40); #Monocytes 0.7 thou/uL (0.11-0.59); #Neutrophils 4.3 thou/uL (1.40-6.50); %Basophils 0.1 % (0.0-1.0); %Eosinophils 1.4 % (0.0-10.0); %Lymphocytes 15.2 % (21.0-51.0); %Monocytes 12.1 % (0.0-10.0); %Neutrophils 71.3 % (42.0-75.0); Hemoglobin 9.9 g/dL (14.0-18.0); Mean Corpuscular HGB CONC 33.6 g/dL (32.0-36.0); Mean Corpuscular Hemoglobin 31.9 pg (27.0-31.0); Platelet Count 207 thou/uL (130-400); RBC Distribution Width 14.3 % (11.5-14.5); White Blood Cell (WBC) Count 6.1 thou/uL (4.8-10.8)
[2019-07-03 02:47] LABS: Anion Gap 10 mmol/L (10-20); BUN (Urea Nitrogen) 22 mg/dL (8.4-25.7); Calc. Creatinine Clearance 30 mL/min (70-130); Calcium 8.2 mg/dL (7.8-10.44); Carbon Dioxide 23 mmol/L (23-31); Chloride 108 mmol/L (98-107); Estimated GFR-MDRD 30; Glucose 110 mg/dL (83-110); Potassium 4.3 mmol/L (3.5-5.1); Sodium 137 mmol/L (136-145)
[2019-07-03 02:53] LABS: Troponin I 0.054 ng/mL (< 0.028)
[2019-07-03] MEDS ORDERED: CEFAZOLIN 1 GM VIAL ONE (07:54)
[2019-07-03] MEDS ORDERED: Gentamicin 80 MG/2 ML VIAL ONE (07:54)
[2019-07-03] MEDS: Famotidine 20 MG TAB PO SCH (08:05)
[2019-07-03] MEDS ORDERED: Midazolam HCl 2 mg/2 ml Vial ONE (08:49)
[2019-07-03] MEDS ORDERED: Lidocaine 1% (PF) 30 ML VIAL ONE (08:56)
--- NOTE | 2019-07-03 10:37 | RAD ---
Chest AP view INDICATION: Status post cardiac device placement COMPARISON: July 02, 2019 FINDINGS: Lungs:The lungs are clear Cardiac silhouette:Stable mild cardiomegaly. Right IJ central venous catheter is unchanged. There is been interval placement of a dual-lead pacemaker overlying left chest wall. Pulmonary vasculature:Normal Pleural spaces:No pleural effusion or pneumothorax is demonstrated. Upper abdomen:No abnormality seen. Osseous structures: No acute osseous abnormality. Additional findings:None. IMPRESSION: New dual lead pacemaker overlying left chest wall. No pneumothorax. Stable mild cardiomeg michleet and right IJ central venous catheter.
[2019-07-03] MEDS: Sodium Chloride 0.9% 1,000 ML IV SCH (11:41)
[2019-07-03] MEDS: Guaifenesin DM 100-10/5 ML UDCUP PO PRN (13:42)
[2019-07-03] MEDS: Acetaminophen 325 MG TAB PO PRN ×2 (17:12→23:03)
--- NOTE | 2019-07-03 18:28 | PDOC.HOSPP ---
- Subjective Encounter Date: 07/03/19 Encounter Time: 10:00 Subjective: Mr. Lee was seen today in follow-up of complete heart block, s/p pacemaker placement. He does not have any complaints today. - Objective Vital Signs & Weight: Vital Signs (12 hours) Temp Pulse Resp BP BP Pulse Ox 07/03/19 16:18 98.3 F 60 16 179/84 H 95 07/03/19 12:30 98.5 F 61 18 106/63 96 07/03/19 10:04 98.1 F 62 14 93 L 07/03/19 10:00 98.1 F 07/03/19 08:00 96 Weight Admit Weight 173 lb 8.061 oz Weight 173 lb 8.061 oz Most Recent Monitor Data Heart Rate from ECG 60 NIBP 94/24 NIBP BP-Mean 47 Respiration from ECG 19 SpO2 98 I&O: 07/02/19 07/03/19 07/04/19 06:59 06:59 06:59 Intake Total 691 1375.4 Output Total 500 2100 Balance 191 -724.6 Result Diagrams: 07/03/19 02:13 07/03/19 02:13 Hospitalist ROS - Medication Medications: Active Medications Generic Name Dose Route Start Last Admin Trade Name Freq PRN Reason Stop Dose Admin Acetaminophen 650 mg 07/02/19 20:40 07/03/19 17:12 Tylenol PO 650 mg Q4H PRN Administration Headache/Fever/Mild Pain (1-3) Famotidine 20 mg 07/03/19 09:00 07/03/19 08:05 Pepcid PO Not Given 0900 [facility] Guaifenesin/Dextromethorphan 15 ml 07/02/19 21:32 07/03/19 13:42 Robitussin Dm PO 15 ml Q4H PRN Administration Cough Sodium Chloride 1,000 mls @ 70 mls/hr 07/02/19 20:40 07/03/19 11:41 Normal Saline 0.9% IV Not Given .[id number] BLAN[facility] Norepinephrine Bitartrate 8 mg 250 mls @ 0 mls/hr 07/02/19 22:27 07/03/19 01: 11 / Dextrose/Water IVPB 250 mls INF PRN Administration TO KEEP SBP > 90 Protocol As Directed Sodium Chloride 10 ml 07/03/19 09:00 07/03/19 08:05 Flush - Normal Saline IVF Not Given Q12HR BLANCA - Exam Eye: PERRL Heart: RRR, no murmur, no gallops, no rubs, normal peripheral pulses Respiratory: CTAB, no wheezes, no rales, no ronchi, normal chest expansion, no tachypnea, normal percussion Gastrointestinal: soft (+ mid-line scar, and at the superior end, approxmately 4 cm open area with serous drainage), non-tender, non-distended, normal bowel sounds, no palpable masses, no hepatomegaly, no splenomegaly Extremities: no cyanosis, no clubbing, no edema Hosp A/P (1) Third degree AV block Code(s): I44.2 - ATRIOVENTRICULAR BLOCK, COMPLETE Status: Acute (2) CAD (coronary artery disease) Code(s): I25.10 - ATHSCL HEART DISEASE OF [place] CORONARY ARTERY W/O ANG PCTRS Status: Chronic (3) Atrial fibrillation Code(s): I48.91 - UNSPECIFIED ATRIAL FIBRILLATION Status: Chronic (4) Hypertension Code(s): I10 - ESSENTIAL (PRIMARY) HYPERTENSION Status: Chronic (5) S/P repair of ventral hernia Code(s): Z98.890 - OTHER SPECIFIED POSTPROCEDURAL STATES; Z87.19 - PERSONAL HISTORY OF OTHER DISEASES OF THE DIGESTIVE SYSTEM Status: Chronic - Plan * Third degree AV- Block- he is s/p BiV pace-maker * HTN- blood pressure is stable * Patient is s/p Ventral hernia repair- with area of open incision- will have wound care to see * CAD- stable
--- NOTE | 2019-07-03 19:59 | CCL ---
DATE OF PROCEDURE: 07/03/19 INDICATION FOR PROCEDURE: This is an 83-year-old gentleman was found to have third degree heart block. Underwent temporary pace maker insertion last night and was advised to undergo a permanent pacemaker insertion this morning. He was taken to the cardiac labor operator, prepped and draped in the sterile fashion where he underwent th e procedure without difficulties or complications. He was given 2 mg of IV Versed for conscious sedat ion. Total sedation time was 37 minutes. There were no complications or difficulties throughout the p rocedure. He was monitored by an independent observer present for heart rate, blood pressure and O2 s aturations. No complications were noted. The patient was prepped and draped in the sterile fashion. The pacemaker pocket was easily dissected and then a dual chamber pacemaker with two screw-in leads was placed. One in the atrium and one in th e ventricle. There were no complications or difficulties encountered. He was implanted with an Dennise XT pacemaker from [employer] an MRI compatible device. The pacemaker was set at an upper rate at 120 a nd the lower rate was set at 60. There were no difficulties or complications.
[2019-07-03] MEDS ORDERED: Atorvastatin Calcium 40 MG TAB PO SCH (21:00)
[2019-07-03] MEDS ORDERED: traZODone HCl 50 MG TAB PO PRN (22:24)
[2019-07-04] MEDS: Sodium Chloride 0.9% 1,000 ML IV SCH (01:42)
[2019-07-04] MEDS: Guaifenesin DM 100-10/5 ML UDCUP PO PRN (08:24)
[2019-07-04] MEDS: Famotidine 20 MG TAB PO SCH (08:24)
[2019-07-04] MEDS: Acetaminophen 325 MG TAB PO PRN (08:34)
[2019-07-04] MEDS ORDERED: Amiodarone 200 MG TAB PO SCH (09:00)
[2019-07-04 09:39] LABS: #Eosinphils 0.1 thou/uL (0.0-0.7); #Lymphocytes 0.4 thou/uL (1.20-3.40); #Monocytes 0.4 thou/uL (0.11-0.59); #Neutrophils 2.9 thou/uL (1.40-6.50); %Basophils 0.4 % (0.0-1.0); %Eosinophils 1.9 % (0.0-10.0); %Lymphocytes 10.2 % (21.0-51.0); %Neutrophils 77.4 % (42.0-75.0); Hemoglobin 10.2 g/dL (14.0-18.0); Mean Corpuscular HGB CONC 33.4 g/dL (32.0-36.0); Mean Corpuscular Hemoglobin 32.1 pg (27.0-31.0); Mean Corpuscular Volume 96.1 fL (78.0-98.0); Mean Platelet Volume 8.2 fL (7.4-10.4); Platelet Count 157 thou/uL (130-400); RBC Distribution Width 14.1 % (11.5-14.5); Red Blood Cell (RBC) Count 3.17 mill/uL (4.70-6.10); White Blood Cell (WBC) Count 3.7 thou/uL (4.8-10.8)
[2019-07-04 09:57] LABS: Anion Gap 9 mmol/L (10-20); BUN (Urea Nitrogen) 13 mg/dL (8.4-25.7); Calc. Creatinine Clearance 51 mL/min (70-130); Calcium 8.7 mg/dL (7.8-10.44); Carbon Dioxide 24 mmol/L (23-31); Chloride 108 mmol/L (98-107); Estimated GFR-MDRD 56; Glucose 125 mg/dL (83-110); Potassium 4.1 mmol/L (3.5-5.1); Sodium 137 mmol/L (136-145)
[2019-07-04 11:22] VITALS: TEMP 98.1
[2019-07-04 12:15] VITALS: BP 137/66
--- NOTE | 2019-07-04 12:55 | PDOC.HOSPP ---
- Subjective Encounter Date: 07/04/19 Encounter Time: 12:53 Subjective: Mr. Lee was seen today in follow-up of complete heart block. He does not have any complaints today. - Objective Vital Signs & Weight: Vital Signs (12 hours) Temp Pulse Pulse Pulse Resp BP BP 07/04/19 11:19 98.1 F 68 18 07/04/19 10:30 79 78 137/66 144/85 H 07/04/19 08:00 97.5 F L 66 18 07/04/19 03:59 97.8 F 66 18 07/04/19 03:26 BP Pulse Ox 07/04/19 11:19 111/58 L 97 07/04/19 10:30 07/04/19 08:00 129/81 94 L 07/04/19 03:59 100/56 L 97 07/04/19 03:26 95 Weight Admit Weight 173 lb 8.061 oz Weight 173 lb 8.061 oz Most Recent Monitor Data Heart Rate from ECG 60 NIBP 94/24 NIBP BP-Mean 47 Respiration from ECG 19 SpO2 98 I&O: 07/03/19 07/04/19 07/05/19 06:59 06:59 06:59 Intake Total 691 2695.4 960 Output Total 500 2100 Balance 191 595.4 960 Result Diagrams: 07/04/19 09:30 07/04/19 09:30 Hospitalist ROS - Medication Medications: Active Medications Generic Name Dose Route Start Last Admin Trade Name Freq PRN Reason Stop Dose Admin Acetaminophen 650 mg 07/02/19 20:40 07/04/19 08:34 Tylenol PO 650 mg Q4H PRN Administration Headache/Fever/Mild Pain (1-3) Amiodarone HCl 200 mg 07/04/19 09:00 07/04/19 08:24 Cordarone PO 200 mg DAILY [facility]AN[facility] Administration Atorvastatin Calcium 80 mg 07/03/19 21:00 07/03/19 21:05 Lipitor PO 80 mg HS BLANCA Administration Famotidine 20 mg 07/03/19 09:00 07/04/19 08:24 Pepcid PO 20 mg 0900 [facility] Administration Guaifenesin/Dextromethorphan 15 ml 07/02/19 21:32 07/04/19 08:24 Robitussin Dm PO 15 ml Q4H PRN Administration Cough Sodium Chloride 10 ml 07/03/19 09:00 07/04/19 08:26 Flush - Normal Saline IVF 10 ml Q12HR BLANCA Administration Trazodone HCl 75 mg 07/03/19 22:24 07/03/19 23:02 Desyrel PO 75 mg HS PRN Administration sleep - Exam Eye: PERRL, anicteric sclera Heart: RRR, no murmur, no gallops, no rubs, normal peripheral pulses Respiratory: CTAB, no wheezes, no rales, no ronchi, normal chest expansion Gastrointestinal: soft, non-tender Hosp A/P (1) Third degree AV block Code(s): I44.2 - ATRIOVENTRICULAR BLOCK, COMPLETE Status: Acute (2) CAD (coronary artery disease) Code(s): I25.10 - ATHSCL HEART DISEASE OF [place] CORONARY ARTERY W/O ANG PCTRS Status: Chronic (3) Atrial fibrillation Code(s): I48.91 - UNSPECIFIED ATRIAL FIBRILLATION Status: Chronic (4) Hypertension Code(s): I10 - ESSENTIAL (PRIMARY) HYPERTENSION Status: Chronic (5) S/P repair of ventral hernia Code(s): Z98.890 - OTHER SPECIFIED POSTPROCEDURAL STATES; Z87.19 - PERSONAL HISTORY OF OTHER DISEASES OF THE DIGESTIVE SYSTEM Status: Chronic - Plan * Third degree AV- Block- he is s/p BiV pace-maker- clinically stable * HTN- blood pressure is stable * Patient is s/p Ventral hernia repair- with area of open incision- will have wound care to see * Acute kidney injury- resolved * CAD- stable * Stable for discharge home
--- NOTE | 2019-07-04 14:24 | PDOC.CPN ---
- Subjective Date: 07/04/19 Time: 14:23 Interval history: he is doing well. No chest pain. Pacer site has a bruise but no hematoma. - Review of Systems General: denies: fever/chills, weight/appetite/sleep changes, night sweats, fatigue Respiratory: denies: cough, congestion, shortness of breath, exercise intolerance Cardiovascular: denies: chest pain, palpitation, edema, paroxysmal nocturnal dyspnea, orthopnea Gastrointestinal: denies: nausea, vomiting, diarrhea, constipation, abd pain, GI bleeding Musculoskeletal: denies: pain, tenderness, stiffness, swelling, arthritis/ arthralgias Neurological: denies: numbness, syncope, seizure, weakness - Objective Allergies/Adverse Reactions: Allergies Allergy/AdvReac Type Severity Reaction Status Date / Time No Known Allergies Allergy Verified 07/02/19 22:01 Visit Medications: Current Medications Acetaminophen (Tylenol) 650 mg PO Q4H PRN PRN Reason: Headache/Fever/Mild Pain (1-3) Last Admin: 07/04/19 08:34 Dose: 650 mg Amiodarone HCl (Cordarone) 200 mg PO DAILY [facility] Last Admin: 07/04/19 08:24 Dose: 200 mg Atorvastatin Calcium (Lipitor) 80 mg PO HS [facility] Last Admin: 07/03/19 21:05 Dose: 80 mg Famotidine (Pepcid) 20 mg PO 0900 [facility] Last Admin: 07/04/19 08:24 Dose: 20 mg Guaifenesin/Dextromethorphan (Robitussin Dm) 15 ml PO Q4H PRN PRN Reason: Cough Last Admin: 07/04/19 08:24 Dose: 15 ml Fentanyl Citrate 2,000 mcg/ (Sodium Chloride) 100 mls @ 2.5 mls/hr IV INF [facility]; Protocol Stop: 08/01/19 19:03 Ondansetron HCl (Zofran Odt) 4 mg PO Q6H PRN PRN Reason: Nausea/Vomiting Ondansetron HCl (Zofran) 4 mg IVP Q6H PRN PRN Reason: Nausea/Vomiting Sodium Chloride (Flush - Normal Saline) 10 ml IVF Q12HR [facility]AN[facility] Last Admin: 07/04/19 08:26 Dose: 10 ml Sodium Chloride (Flush - Normal Saline) 10 ml IVF PRN PRN PRN Reason: Saline Flush Trazodone HCl (Desyrel) 75 mg PO HS PRN PRN Reason: sleep Last Admin: 07/03/19 23:02 Dose: 75 mg Vital Signs & Weight: Vital Signs Temp Pulse Pulse Pulse Resp BP BP 07/04/19 11:19 98.1 F 68 18 07/04/19 10:30 79 78 137/66 144/85 H 07/04/19 08:00 97.5 F L 66 18 07/04/19 03:59 97.8 F 66 18 07/04/19 03:26 BP Pulse Ox 07/04/19 11:19 111/58 L 97 07/04/19 10:30 07/04/19 08:00 129/81 94 L 07/04/19 03:59 100/56 L 97 07/04/19 03:26 95 Admit Weight 173 lb 8.061 oz Weight 173 lb 8.061 oz - Physical Exam General: alert & oriented x3, no apparent distress HEENT: mucus membranes moist, normocephaly Neck: supple neck, midline trachea Cardiac: regular rate and rhythm, no murmur Lungs: clear to auscultation, no wheeze, rales, rhonchi Neuro: grossly intact, coordination normal Abdomen: active bowel sounds, soft, non-tender Skin: clear Musculoskeletal: normal range of motion, no pain - Labs Result Diagrams: 07/04/19 09:30 07/04/19 09:30 Troponin/CKMB CK-MB (CK-2) 2.3 ng/mL (0-6.6) 07/02/19 21:30 Troponin I 0.054 ng/mL (< 0.028) H 07/03/19 02:13 - Telemetry Sinus rhythms and dysrhythmias: sinus rhythm - Assessment/Plan Assessment/Plan: 1. CHB 2. S/P PPM placement. 3. OBDULIA PLAN: - Creatinine improving. - Home anytime from cardiac perspective.
--- NOTE | 2019-07-04 14:27 | DIS ---
DATE OF ADMISSION: 07/02/2019 DATE OF DISCHARGE: 07/04/2019 PRIMARY CARE PHYSICIAN: Becky Gonzales MD DISCHARGE DISPOSITION: Home. PRIMARY DISCHARGE DIAGNOSES: 1. Complete heart block. 2. Status post biventricular pacemaker. 3. History of atrial fibrillation. 4. History of recent ventral hernia repair. 5. Hypertension. 6. Dyslipidemia. DISCHARGE MEDICATIONS: 1. Keflex 500 mg twice daily for 5 days. 2. MiraLAX 17 g p.o. daily. 3. Vitamin B and zinc one tablet daily. 4. Trazodone 75 mg p.r.n. 5. Tramadol 50 mg q.6 as needed. 6. Pantoprazole 40 mg daily. 7. Losartan 25 mg at bedtime. 8. Astelin nasal spray daily. 9. Atorvastatin 80 mg at bedtime. 10. Aspirin 81 mg daily. 11. Amiodarone 200 mg daily. PROCEDURES DONE DURING THIS ADMISSION: The patient had an emergent temporary pacemaker placed as well as a permanent pacemaker. CODE STATUS: Full code. ALLERGIES: NO KNOWN DRUG ALLERGIES. HOSPITAL COURSE: Mr. Lee is a pleasant 83-year-old gentleman, who was admitted to the hospital with altered mental status. The patient was very drowsy and extremely weak. When he was seen in the ER, he was found to have a heart rate in the 30s and episodes of almost complete asystole. He was started immediately on transcutaneous pacemaker, and Cardiology was consulted. He also required Levophed for hypotension. He was taken down that night to have a temporary pacer placed and the following day had a permanent biventricular pacer placed. He had an uneventful postoperative course and was able to be discharged home in stable condition. He was instructed on discharge followup with Dr. Gonzales in 1 week and also with Dr. Lyons in 2 to 4 weeks. Job ID: [id number]
--- NOTE | 2019-07-05 17:23 | EKG ---
Test Reason : POST PACEMAKER INSER Blood Pressure : / mmHG Vent. Rate : 061 BPM Atrial Rate : 061 BPM P-R Int : 170 ms QRS Dur : 122 ms QT Int : 478 ms P-R-T Axes : 085 -61 021 degrees QTc Int : 481 ms Electronic atrial pacemaker Left axis deviation Right bundle branch block Abnormal ECG When compared with ECG of 02-JUL-2019 17:41, (Unconfirmed) Electronic atrial pacemaker has replaced Sinus rhythm Criteria for Septal infarct are no longer Present Confirmed by ANUSHA COLUNGA (2) on 07/05/2019 5:22:41 PM Referred By: MARJORIE Confirmed By:ANUSHA COLUNGA
== END 2019-07-04 14:54 | disposition home or self-care (01) | DRG 243 ==
LOC: ERS 17:32 → SDC/OP 20:18 → CCU 21:22 → 2NO 07-03 12:14
PROVIDERS: ADMIT Internal Medicine; ATTEND Internal Medicine
PROC: 5A1213Z Performance of Cardiac Pacing, Intermittent (ICD-10-PCS; 2019-07-02)
PROC: 4A023N7 Measurement of Cardiac Sampling and Pressure, Left Heart, Percutaneous Approach (ICD-10-PCS; 2019-07-02)
PROC: B2111ZZ Fluoroscopy of Multiple Coronary Arteries using Low Osmolar Contrast (ICD-10-PCS; 2019-07-02)
PROC: 0JH606Z Insertion of Pacemaker, Dual Chamber into Chest Subcutaneous Tissue and Fascia, Open Approach (ICD-10-PCS; principal; 2019-07-03)
PROC: 02HK3JZ Insertion of Pacemaker Lead into Right Ventricle, Percutaneous Approach (ICD-10-PCS; 2019-07-03)
PROC: 02H63JZ Insertion of Pacemaker Lead into Right Atrium, Percutaneous Approach (ICD-10-PCS; 2019-07-03)
DX: I44.2 Atrioventricular block, complete (principal); N18.4 Chronic kidney disease, stage 4 (severe); N17.9 Acute kidney failure, unspecified; J90 Pleural effusion, not elsewhere classified; E78.5 Hyperlipidemia, unspecified; I48.2 Chronic atrial fibrillation; E78.00 Pure hypercholesterolemia, unspecified; I12.9 Hypertensive chronic kidney disease with stage 1 through stage 4 chronic kidney disease, or unspecified chronic kidney disease; K21.9 Gastro-esophageal reflux disease without esophagitis; I25.10 Atherosclerotic heart disease of native coronary artery without angina pectoris; I48.0 Paroxysmal atrial fibrillation; E83.52 Hypercalcemia; L40.9 Psoriasis, unspecified; Z79.01 Long term (current) use of anticoagulants; I95.9 Hypotension, unspecified; Z87.891 Personal history of nicotine dependence; Z90.49 Acquired absence of other specified parts of digestive tract
CPT/HCPCS: 33208; 33210; 36556; 71045; 80048; 80053; 82550; 82553; 83735; 83880; 84484; 85025; 85379; 92953; 93005; 93010; 93798; 94760; 96365; 96366; 96375; 99152; 99153; C1769; J0690; J1580; J1644; J2001; J2250; J3010; J3490; J7070

== ENCOUNTER 2019-09-24 12:46 | Day surgery (SDC) | payer MEDICARE, OTHER ==
[2019-09-23 10:32] VITALS: BMI 28.5
[2019-09-24] MEDS ORDERED: Ondansetron PF 4 MG/2 ML Vial ONE (13:34)
[2019-09-24] MEDS ORDERED: PROPOFOL 200 MG/20 ML VIAL ONE (13:34)
[2019-09-24] MEDS ORDERED: Rocuronium Bromide 10 MG/ML (10ML VIAL) ONE (13:34)
[2019-09-24] MEDS ORDERED: Glycopyrrolate 0.2 MG/ML 5 ML SYRINGE ONE (13:34)
[2019-09-24] MEDS ORDERED: Dexamethasone 20 MG/5 ML VIAL ONE (13:34)
[2019-09-24] MEDS ORDERED: Lidocaine 1% PF 5 ML VIAL ONE (13:34)
[2019-09-24 14:11] LABS: Hemoglobin 11.7 g/dL (14.0-18.0)
[2019-09-24 14:28] LABS: Anion Gap 11 mmol/L (10-20); BUN (Urea Nitrogen) 14 mg/dL (8.4-25.7); Calc. Creatinine Clearance 60 mL/min (70-130); Calcium 9.2 mg/dL (7.8-10.44); Carbon Dioxide 27 mmol/L (23-31); Chloride 106 mmol/L (98-107); Estimated GFR-MDRD 63; Glucose 95 mg/dL (83-110); Potassium 4.1 mmol/L (3.5-5.1); Sodium 140 mmol/L (136-145)
[2019-09-24] MEDS ORDERED: Bacitracin Zinc Ointment 30 gm TUBE ONE (14:31)
[2019-09-24] MEDS ORDERED: Lidocaine 1% w/Epinephrine 1:100K 20 ML VIAL ONE (14:31)
[2019-09-24] MEDS ORDERED: Fentanyl 100 MCG/2 ML VIAL ONE ×2 (15:13→15:33)
--- NOTE | 2019-09-25 09:51 | OP ---
DATE OF PROCEDURE: 09/24/2019 PREOPERATIVE DIAGNOSIS: Malignant lesion of the right scalp. 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 PROCEDURE PERFORMED: 1. Excision of malignant lesion of the right scalp measuring 3 cm with split-thickness skin graft reconstruction. 2. Dresser of 3 cm skin graft from the right upper chest. PROCEDURE: After consent was obtained the patient identified brought to the OR and placed on table supine position. Anesthesia was obtained. The patient was positioned for surgery. Area was prepped and draped and topical anesthesia was obtained by injecting 1% lidocaine with 1:100,000 epinephrine in both the donor and excision sites. We then turned our attention to the scalp. Using sterile technique, a 0.5 cm margin was delineated with a marking pen around the lesion. We then used a Bovie to make an incision in the skin down to the galea of the scalp. We then removed the specimen, sent it for histologic evaluation and found to be consistent with a well-differentiated squamous cell carcinoma. We then measured the defect, which was 3 cm and harvested a freehand split-thickness skin graft measuring 3 cm in a circular fashion from the right chest. Hemostasis was obtained and the wound was closed in 2 layers. We then placed a skin graft over the defect and a scalp and sutured the graft to the marginal skin with 5-0 absorbable suture. We then created a bolster made of Xeroform, cotton balls and a mineral oil saturated cotton ball and placed that in the defect and sutured to secure that with bolster sutures made of 2-0 silk. Antibiotic ointment was then placed over the bolster. The patient was awakened, taken to recovery room in a stable condition prior to discharge home. Job ID: [id number]
== END 2019-09-24 18:49 | disposition home or self-care (01) ==
LOC: SDC 12:46
PROVIDERS: ATTEND Specialist
PROC: 0HR0X74 Replacement of Scalp Skin with Autologous Tissue Substitute, Partial Thickness, External Approach (ICD-10-PCS; principal; 2019-09-24)
DX: C44.42 Squamous cell carcinoma of skin of scalp and neck (principal); I10 Essential (primary) hypertension; E78.5 Hyperlipidemia, unspecified; Z79.82 Long term (current) use of aspirin; Z79.899 Other long term (current) drug therapy; Z87.891 Personal history of nicotine dependence
CPT/HCPCS: 36415; 80048; 85014; 85018; 88305; 88331; 88332; J1100; J2001; J2405; J2704; J3010

== ENCOUNTER 2020-02-18 09:53 | Outpatient (CLI) | payer MEDICARE, OTHER ==
--- NOTE | 2020-02-18 12:26 | RAD ---
TWO VIEWS OF THE CHEST: COMPARISON: 05/15/2019. HISTORY: Dyspnea. FINDINGS: Two views of the chest show a normal-size cardiomediastinal silhouette. A pacemaker is seen with its leads in the right atrium and ventricle. Atherosclerotic calcifications are seen in the aorta. The re is no evidence of consolidation, mass, or pleural effusion. Degenerative changes are seen in the spine. IMPRESSION: No evidence of acute cardiopulmonary disease. POS: EAA
== END 2020-02-18 09:54 | disposition home or self-care (01) ==
LOC: RAD 09:53
PROVIDERS: ATTEND Internal Medicine Critical Care Medicine
DX: R06.00 Dyspnea, unspecified (principal)
CPT/HCPCS: 71046

== ENCOUNTER 2020-09-02 12:00 | Emergency (ER) | payer MEDICARE, OTHER ==
[~2020-09-02 12:00] MED LIST changes: -Dexamethasone 20 MG/5 ML VIAL ONE; -Glycopyrrolate 0.2 MG/ML 5 ML SYRINGE ONE; +Iopamidol 370 76% 100 ML VIAL ONE; -Lidocaine 1% PF 5 ML VIAL ONE; -Ondansetron PF 4 MG/2 ML Vial ONE; -PROPOFOL 200 MG/20 ML VIAL ONE; -Rocuronium Bromide 10 MG/ML (10ML VIAL) ONE
[2020-09-02 12:39] LABS: #Lymphocytes 0.5 thou/uL (1.20-3.40); #Monocytes 0.8 thou/uL (0.11-0.59); #Neutrophils 5.3 thou/uL (1.40-6.50); %Basophils 0.2 % (0.0-1.0); %Eosinophils 0.4 % (0.0-10.0); %Lymphocytes 7.7 % (21.0-51.0); %Monocytes 12.1 % (0.0-10.0); %Neutrophils 79.5 % (42.0-75.0); Hemoglobin 12.2 g/dL (14.0-18.0); Mean Corpuscular HGB CONC 32.5 g/dL (32.0-36.0); Mean Corpuscular Hemoglobin 27.2 pg (27.0-31.0); Mean Corpuscular Volume 83.8 fL (78.0-98.0); Mean Platelet Volume 8.6 fL (7.4-10.4); Platelet Count 175 thou/uL (130-400); Red Blood Cell (RBC) Count 4.49 mill/uL (4.70-6.10); White Blood Cell (WBC) Count 6.7 thou/uL (4.8-10.8)
[2020-09-02 12:57] LABS: ALT (SGPT) 41 U/L (8-55); AST (SGOT) 38 U/L (5-34); Albumin 3.9 g/dL (3.4-4.8); Alkaline Phosphatase 95 U/L (40-110); Anion Gap 13 mmol/L (10-20); BUN (Urea Nitrogen) 17 mg/dL (8.4-25.7); Bilirubin, Total 0.9 mg/dL (0.2-1.2); Calc. Creatinine Clearance 0 mL/min (70-130); Calcium 9.1 mg/dL (7.8-10.44); Carbon Dioxide 28 mmol/L (23-31); Chloride 101 mmol/L (98-107); Estimated GFR-MDRD 47; Globulin 2.9 g/dL (2.4-3.5); Glucose 132 mg/dL (83-110); Potassium 3.9 mmol/L (3.5-5.1); Protein, Total 6.8 g/dL (5.8-8.1); Sodium 138 mmol/L (136-145)
[2020-09-02] MEDS ORDERED: Ketorolac Tromethamine 30 MG/ML VIAL ONE (13:44)
[2020-09-02 14:09] LABS: Bilirubin Negative (Negative); Blood, Urine 2+ (Negative); Clarity Turbid (Clear); Glucose, Urine (Dipstick) Normal (Negative); Ketone, Urine Negative (Negative); Leukocyte 250 Leu/uL (Negative); Nitrite Negative (Negative); Protein, Urine (Dipstick) 50 mg/dL (Neg-Trace); RBC/HPF Greater than 50 HPF (0-3); Squamous Epithelial 0-3 HPF (0-3); Urobilinogen Normal mg/dL (Less than 2); WBC/HPF Greater than 50 HPF (0-3); pH, Urine 5.5 (5.0-9.0)
[2020-09-02 14:22] LABS: Bacteria/HPF 2+ HPF (None Seen); Mucous/LPF 2+ LPF (<2+)
--- NOTE | 2020-09-02 14:26 | CT ---
CT Abdomen Pelvis W Con: 09/02/2020 1:50 PM CLINICAL INFORMATION: Left flank and abdominal pain COMPARISON: 06/19/2019, 06/27/2019 TECHNIQUE: Multiple contiguous axial images were obtained and a CT of the abdomen and pelvis with IV contrast. C oronal and sagittal reformats were performed. FINDINGS: Lower Chest: within normal limits. Abdomen: Liver: Scattered stable subcentimeter hypodensities are too small to definitely characterize but may represent small cysts. Bile Ducts: Normal caliber. Gallbladder: Small calcified gallstone in the posterior aspect of the gallbladder Pancreas: There is a 1.2 cm lipoma along the posterior aspect of the pancreas. Spleen: within normal limits. Adrenals: within normal limits. Kidneys: Moderate left hydronephrosis. No significant delay in the left nephrogram compared to the ri ght. There is a nonobstructing 3 mm calcification in the left kidney. Pelvis: Reproductive Organs: No pelvic masses. Ureters: The left ureter is enlarged. There are 2 calcifications in the distal aspect of the left ure ter measuring up to 2 mm in size. Bladder: within normal limits. Peritoneum: No ascites or free air, no fluid collection. Bowel: There is an ostomy in the right lower quadrant of the abdomen. There is a Roberts's pouch in t he pelvis. Nonobstructed small bowel loops are seen within a parastomal hernia in the right lower quadrant of the abdomen. Mesentery and Retroperitoneum: No enlarged mesenteric or retroperitoneal lymph nodes. Vessels: Atherosclerotic calcifications. Abdominal Wall: within normal limits. Bones: Degenerative changes in the spine. There is fusion of the sacroiliac joints. IMPRESSION: 1. Left ureteral calcifications with moderate left hydronephrosis 2. Hepatic hypodensities likely represent cysts. 3. Parastomal hernia 4. Cholelithiasis 5. Nonobstructing left renal calcification
== END 2020-09-02 15:30 | disposition home or self-care (01) ==
LOC: ERS 12:00
DX: N13.2 Hydronephrosis with renal and ureteral calculous obstruction (principal); K76.89 Other specified diseases of liver; N39.0 Urinary tract infection, site not specified; E78.5 Hyperlipidemia, unspecified; I10 Essential (primary) hypertension; I25.10 Atherosclerotic heart disease of native coronary artery without angina pectoris; D64.9 Anemia, unspecified; K21.9 Gastro-esophageal reflux disease without esophagitis; J44.9 Chronic obstructive pulmonary disease, unspecified; Z79.899 Other long term (current) drug therapy
CPT/HCPCS: 36415; 74177; 80053; 81003; 81015; 85025; 87077; 87086; 96374; J1885; Q9967

== ENCOUNTER 2021-07-16 12:47 | Inpatient (IN) | payer MEDICARE, OTHER ==
[2021-07-16 13:58] LABS: #Eosinphils 0.2 thou/uL (0.0-0.7); #Lymphocytes 0.6 thou/uL (1.20-3.40); #Monocytes 0.8 thou/uL (0.11-0.59); #Neutrophils 4.9 thou/uL (1.40-6.50); %Basophils 0.7 % (0.0-1.0); %Eosinophils 2.6 % (0.0-10.0); %Lymphocytes 9.6 % (21.0-51.0); %Monocytes 12.9 % (0.0-10.0); %Neutrophils 74.2 % (42.0-75.0); Hemoglobin 15.2 g/dL (14.0-18.0); Mean Corpuscular HGB CONC 34.6 g/dL (32.0-36.0); Mean Corpuscular Hemoglobin 35.4 pg (27.0-31.0); Mean Platelet Volume 7.8 fL (7.4-10.4); Platelet Count 158 thou/uL (130-400); RBC Distribution Width 12.6 % (11.5-14.5); Red Blood Cell (RBC) Count 4.29 mill/uL (4.70-6.10); White Blood Cell (WBC) Count 6.5 thou/uL (4.8-10.8)
[2021-07-16 14:15] LABS: ALT (SGPT) 65 U/L (8-55); AST (SGOT) 52 U/L (5-34); Albumin 3.7 g/dL (3.4-4.8); Alkaline Phosphatase 104 U/L (40-110); Anion Gap 11 mmol/L (10-20); BUN (Urea Nitrogen) 13 mg/dL (8.4-25.7); Bilirubin, Total 1.9 mg/dL (0.2-1.2); Calc. Creatinine Clearance 0 mL/min (70-130); Calcium 9.2 mg/dL (7.8-10.44); Carbon Dioxide 28 mmol/L (23-31); Chloride 103 mmol/L (98-107); Globulin 2.7 g/dL (2.4-3.5); Glucose 106 mg/dL (83-110); Potassium 4.5 mmol/L (3.5-5.1); Protein, Total 6.4 g/dL (5.8-8.1); Sodium 137 mmol/L (136-145)
[2021-07-16 17:26] LABS: Magnesium 1.8 mg/dL (1.6-2.6)
[2021-07-16 17:30] LABS: Troponin I Less than 0.010 ng/mL (< 0.028)
[2021-07-16 17:53] VITALS: BMI 27.8
[2021-07-16] MEDS ORDERED: FLU VACC QS2021-22(65YR UP)/PF 240 MCG/0.7 ML SYRINGE IM ONE (18:15)
[2021-07-16] MEDS: Acetaminophen 325 MG TAB PO PRN (19:52)
[2021-07-16 20:38] LABS: Troponin I 0.012 ng/mL (< 0.028)
[2021-07-16 23:03] LABS: SARS-CoV-2 PCR by NAA Not Detected (NotDetected)
[2021-07-17] MEDS: Acetaminophen 325 MG TAB PO PRN ×3 (03:04→18:12)
[2021-07-17] MEDS: Guaifenesin DM 100-10/5 ML UDCUP PO PRN ×2 (04:02→12:46)
[2021-07-17] MEDS ORDERED: traZODone HCl 150 MG TAB PO PRN (04:23)
[2021-07-17] MEDS ORDERED: Ipratropium Bromide 0.06% Nasal Inhaler 15ml EA NARE PRN (04:23)
[2021-07-17] MEDS ORDERED: Azelastine 137 MCG/Spray 30 ML FS PRN (04:39)
[2021-07-17 05:27] LABS: Hemoglobin A1c 4.7 % (4.0-6.0)
[2021-07-17 05:39] LABS: #Eosinphils 0.2 thou/uL (0.0-0.7); #Lymphocytes 0.6 thou/uL (1.20-3.40); #Monocytes 0.6 thou/uL (0.11-0.59); #Neutrophils 3.2 thou/uL (1.40-6.50); %Eosinophils 3.6 % (0.0-10.0); %Lymphocytes 12.3 % (21.0-51.0); %Monocytes 12.5 % (0.0-10.0); %Neutrophils 71.6 % (42.0-75.0); ALT (SGPT) 61 U/L (8-55); AST (SGOT) 50 U/L (5-34); Albumin 3.4 g/dL (3.4-4.8); Alkaline Phosphatase 97 U/L (40-110); Anion Gap 12 mmol/L (10-20); BUN (Urea Nitrogen) 15 mg/dL (8.4-25.7); Bilirubin, Total 1.5 mg/dL (0.2-1.2); Calc. Creatinine Clearance 62 mL/min (70-130); Calcium 8.9 mg/dL (7.8-10.44); Carbon Dioxide 24 mmol/L (23-31); Cardiac Risk 4.6 (Less than 4.5); Chloride 106 mmol/L (98-107); Cholesterol 151 mg/dl (< 200 Desired); Globulin 2.5 g/dL (2.4-3.5); Glucose 97 mg/dL (83-110); HDL Cholesterol 33 mg/dL (>60 Neg Risk); Hemoglobin 14.2 g/dL (14.0-18.0); LDL Cholesterol, Calculated 77 mg/dL; Mean Corpuscular HGB CONC 34.4 g/dL (32.0-36.0); Mean Corpuscular Hemoglobin 35.1 pg (27.0-31.0); Mean Platelet Volume 8.1 fL (7.4-10.4); Platelet Count 145 thou/uL (130-400); Protein, Total 5.9 g/dL (5.8-8.1); RBC Distribution Width 12.7 % (11.5-14.5); Red Blood Cell (RBC) Count 4.04 mill/uL (4.70-6.10); Sodium 138 mmol/L (136-145); Triglycerides 205 mg/dL (Less than 150); White Blood Cell (WBC) Count 4.5 thou/uL (4.8-10.8)
[2021-07-17 06:03] LABS: Hep C IgG Ab Non-Reactive (NonReactive)
[2021-07-17] MEDS: Montelukast Sodium 10 mg Tablet PO SCH (08:48)
[2021-07-17] MEDS: Carvedilol 3.125 MG TAB PO SCH ×2 (08:49→20:20)
[2021-07-17] MEDS: Thiamine 100 MG TAB PO SCH (08:49)
[2021-07-17] MEDS: Stress 600 With Zinc 1 TAB PO SCH (08:49)
[2021-07-17] MEDS: Aspirin 81 mg Enteric Coated Tablet PO SCH (08:49)
[2021-07-17] MEDS: Enoxaparin Sodium 40 MG/0.4 ML SYRINGE SC SCH (08:49)
[2021-07-17] MEDS: Amiodarone 200 MG TAB PO SCH (08:49)
[2021-07-17] MEDS ORDERED: Tamsulosin HCl 0.4 MG CAP PO SCH (09:00)
[2021-07-17] MEDS ORDERED: Bromfenac Sodium [Prolensa] 3 ML Drops FS SCH (09:00)
[2021-07-17] MEDS: Budesonide 0.5 MG/2 ML NEB NEB SCH (09:11)
[2021-07-17] MEDS ORDERED: traZODone HCl 50 MG TAB PO PRN (10:15)
[2021-07-17] MEDS ORDERED: Atorvastatin Calcium 40 MG TAB PO SCH (21:00)
[2021-07-18] MEDS: Acetaminophen 325 MG TAB PO PRN (04:34)
[2021-07-18] MEDS: Budesonide 0.5 MG/2 ML NEB NEB SCH (09:38)
[2021-07-18] MEDS: Enoxaparin Sodium 40 MG/0.4 ML SYRINGE SC SCH (09:40)
[2021-07-18] MEDS: Aspirin 81 mg Enteric Coated Tablet PO SCH (09:40)
[2021-07-18] MEDS: Amiodarone 200 MG TAB PO SCH (09:40)
[2021-07-18] MEDS: Thiamine 100 MG TAB PO SCH (09:40)
[2021-07-18] MEDS: Montelukast Sodium 10 mg Tablet PO SCH (09:40)
[2021-07-18] MEDS: Carvedilol 3.125 MG TAB PO SCH (09:40)
[2021-07-18] MEDS: Stress 600 With Zinc 1 TAB PO SCH (09:47)
[2021-07-18 17:04] VITALS: TEMP 98.1
[2021-07-18 17:45] VITALS: BP 137/84
[2021-07-19 09:17] LABS: Hep B Surface AG-Rflx Sendout Negative (Negative); Hepatitis B Core Total Negative (Negative); Hepatitis B Surface AB-Sendout Non Reactive (.)
== END 2021-07-18 17:50 | disposition home or self-care (01) | DRG 312 ==
LOC: ERS 12:47 → 2NO 15:15 → OBSVTOIN 07-18 10:19
PROVIDERS: ADMIT Family Medicine; ATTEND Family Medicine
PROC: 4B02XSZ Measurement of Cardiac Pacemaker, External Approach (ICD-10-PCS; principal; 2021-07-18)
DX: I95.1 Orthostatic hypotension (principal); I50.30 Unspecified diastolic (congestive) heart failure; Z20.822 Contact with and (suspected) exposure to COVID-19; E78.5 Hyperlipidemia, unspecified; I25.10 Atherosclerotic heart disease of native coronary artery without angina pectoris; I48.91 Unspecified atrial fibrillation; J44.9 Chronic obstructive pulmonary disease, unspecified; K21.9 Gastro-esophageal reflux disease without esophagitis; L40.9 Psoriasis, unspecified; R74.01 Elevation of levels of liver transaminase levels; F10.10 Alcohol abuse, uncomplicated; N40.0 Benign prostatic hyperplasia without lower urinary tract symptoms; S20.219A Contusion of unspecified front wall of thorax, initial encounter; W18.30XA Fall on same level, unspecified, initial encounter; I08.3 Combined rheumatic disorders of mitral, aortic and tricuspid valves; I11.0 Hypertensive heart disease with heart failure; Z95.0 Presence of cardiac pacemaker; Z79.899 Other long term (current) drug therapy; Z79.82 Long term (current) use of aspirin; Z87.442 Personal history of urinary calculi; Z90.49 Acquired absence of other specified parts of digestive tract; Z93.3 Colostomy status
CPT/HCPCS: 36415; 71045; 80053; 80061; 82607; 82746; 83036; 83735; 83880; 84443; 84484; 85025; 86704; 86705; 86706; 86707; 86803; 87340; 87350; 93005; 93306; 94640; 94760; 96372; G0378; J1650; J7626; U0003; U0005

== ENCOUNTER 2021-08-24 10:09 | Outpatient (CLI) | payer MEDICARE, OTHER | END 2021-08-24 10:10 | disposition home or self-care (01) | LOC: RAD 10:09 | PROVIDERS: ATTEND Internal Medicine Critical Care Medicine | DX: R06.00 Dyspnea, unspecified (principal) | CPT/HCPCS: 71046 ==

== ENCOUNTER 2021-08-25 16:18 | Inpatient (IN) | payer MEDICARE, OTHER ==
[~2021-08-25 16:18] MED LIST changes: -Iopamidol 370 76% 100 ML VIAL ONE; +Iopamidol-370 76% 500 ML 1 ML ONE
[2021-08-25 17:12] LABS: #Eosinphils 0.1 thou/uL (0.0-0.7); #Monocytes 1.2 thou/uL (0.11-0.59); #Neutrophils 5.5 thou/uL (1.40-6.50); %Basophils 0.1 % (0.0-1.0); %Eosinophils 1.5 % (0.0-10.0); %Lymphocytes 13.2 % (21.0-51.0); %Monocytes 14.8 % (0.0-10.0); %Neutrophils 70.4 % (42.0-75.0); Hemoglobin 13.9 g/dL (14.0-18.0); Mean Corpuscular HGB CONC 35.5 g/dL (32.0-36.0); Mean Corpuscular Hemoglobin 36.9 pg (27.0-31.0); Mean Platelet Volume 7.7 fL (7.4-10.4); Platelet Count 195 thou/uL (130-400); RBC Distribution Width 12.3 % (11.5-14.5); Red Blood Cell (RBC) Count 3.78 mill/uL (4.70-6.10); White Blood Cell (WBC) Count 7.8 thou/uL (4.8-10.8)
[2021-08-25 17:33] LABS: ALT (SGPT) 32 U/L (8-55); AST (SGOT) 27 U/L (5-34); Albumin 3.4 g/dL (3.4-4.8); Alkaline Phosphatase 103 U/L (40-110); Anion Gap 14 mmol/L (10-20); BUN (Urea Nitrogen) 14 mg/dL (8.4-25.7); Calc. Creatinine Clearance 0 mL/min (70-130); Calcium 9.3 mg/dL (7.8-10.44); Carbon Dioxide 23 mmol/L (23-31); Chloride 106 mmol/L (98-107); Globulin 2.9 g/dL (2.4-3.5); Glucose 89 mg/dL (83-110); Potassium 3.4 mmol/L (3.5-5.1); Protein, Total 6.3 g/dL (5.8-8.1); Sodium 140 mmol/L (136-145)
[2021-08-25 18:38] LABS: SARS-CoV-2 NAA Rapid Test Not Detected (NotDetected)
[2021-08-25] MEDS ORDERED: Piperacillin/Tazobactam 4.5 GM VIAL ONE (19:03)
[2021-08-25 20:50] LABS: Bacteria/HPF None Seen HPF (None Seen); Bilirubin Negative (Negative); Blood, Urine Negative (Negative); Clarity Clear (Clear); Glucose, Urine (Dipstick) Normal (Negative); Ketone, Urine Negative (Negative); Leukocyte 75 Leu/uL (Negative); Nitrite Negative (Negative); Protein, Urine (Dipstick) 10 mg/dL (Neg-Trace); Squamous Epithelial 0-3 HPF (0-3); Urobilinogen Normal mg/dL (Less than 2); pH, Urine 5.5 (5.0-9.0)
[2021-08-25 20:54] LABS: Specific Gravity, Urine Greater than 1.060 (1.002-1.036)
[2021-08-25] MEDS ORDERED: Ondansetron ODT 4 MG TAB SL PRN (21:30)
[2021-08-25] MEDS ORDERED: Ondansetron PF 4 MG/2 ML Vial IVP PRN (21:30)
[2021-08-25 21:43] VITALS: BMI 26.6
[2021-08-25] MEDS: Sodium Chloride 0.9% 1,000 ML IV SCH (22:06)
[2021-08-26] MEDS ORDERED: Ondansetron PF 4 MG/2 ML Vial IVP PRN (01:58)
[2021-08-26] MEDS ORDERED: Acetaminophen 325 MG TAB PO PRN ×2 (01:58→13:09)
[2021-08-26] MEDS ORDERED: Potassium Chloride 20 MEQ TAB PO SCH (02:00)
[2021-08-26] MEDS ORDERED: hydrALAZINE 20 MG/ML VIAL SLOW IVP PRN (02:00)
[2021-08-26] MEDS: Vancomycin 1 GM in Premix Bag 1 BAG IVPB SCH (03:04)
[2021-08-26 04:46] LABS: #Eosinphils 0.2 thou/uL (0.0-0.7); #Lymphocytes 0.6 thou/uL (1.20-3.40); #Monocytes 0.8 thou/uL (0.11-0.59); #Neutrophils 4.4 thou/uL (1.40-6.50); %Basophils 0.2 % (0.0-1.0); %Eosinophils 2.7 % (0.0-10.0); %Neutrophils 74.1 % (42.0-75.0); Hemoglobin 13.1 g/dL (14.0-18.0); Mean Corpuscular HGB CONC 34.7 g/dL (32.0-36.0); Mean Corpuscular Hemoglobin 36.2 pg (27.0-31.0); Platelet Count 189 thou/uL (130-400); RBC Distribution Width 12.3 % (11.5-14.5); Red Blood Cell (RBC) Count 3.63 mill/uL (4.70-6.10)
[2021-08-26] MEDS: Piperacillin/Tazobactam 3.375 GM in Sodium Chloride 0.9% 100 ML IVPB SCH ×3 (05:02→20:56)
[2021-08-26] MEDS: Sodium Chloride 0.9% 1,000 ML IV SCH (05:05)
[2021-08-26 05:13] LABS: Anion Gap 9 mmol/L (10-20); BUN (Urea Nitrogen) 13 mg/dL (8.4-25.7); Calc. Creatinine Clearance 58 mL/min (70-130); Calcium 8.8 mg/dL (7.8-10.44); Carbon Dioxide 26 mmol/L (23-31); Chloride 107 mmol/L (98-107); Glucose 110 mg/dL (83-110); Magnesium 1.5 mg/dL (1.6-2.6); Potassium 3.8 mmol/L (3.5-5.1); Sodium 138 mmol/L (136-145)
[2021-08-26] MEDS ORDERED: Ipratropium Bromide 0.06% Nasal Inhaler 15ml EA NARE PRN (09:28)
[2021-08-26] MEDS ORDERED: Azelastine 137 MCG/Spray 30 ML NS PRN (09:28)
[2021-08-26] MEDS ORDERED: Fentanyl 100 MCG/2 ML VIAL ONE (11:41)
[2021-08-26] MEDS ORDERED: Lidocaine 2% Jelly 5 ML TUBE ONE (11:42)
[2021-08-26] MEDS ORDERED: Dexamethasone 20 MG/5 ML VIAL ONE (11:58)
[2021-08-26] MEDS ORDERED: Ondansetron PF 4 MG/2 ML Vial ONE (11:58)
[2021-08-26] MEDS ORDERED: Succinylcholine 200 MG/10 ml SYRINGE FS ONE (11:58)
[2021-08-26] MEDS ORDERED: Rocuronium Bromide 10 MG/ML (10ML VIAL) ONE (11:58)
[2021-08-26] MEDS ORDERED: Lidocaine 1% PF 5 ML VIAL ONE (11:58)
[2021-08-26] MEDS ORDERED: PROPOFOL 200 MG/20 ML VIAL ONE (11:58)
[2021-08-26] MEDS ORDERED: Ondansetron HCl/PF 4 MG/2 ML Vial IVP PRN (12:16)
[2021-08-26] MEDS ORDERED: Promethazine HCl 25 MG/ML VIAL IM PRN (12:16)
[2021-08-26] MEDS ORDERED: Promethazine HCl 25 MG/ML VIAL IVPB PRN (12:16)
[2021-08-26] MEDS ORDERED: SUGAMMADEX SODIUM 200 MG/2 ML VIAL ONE (12:19)
[2021-08-26] MEDS ORDERED: HYDROcodone/Acetaminophen 5/325 mg Tablet PO PRN (13:09)
[2021-08-26] MEDS ORDERED: Morphine 4 MG/ML VIAL SLOW IVP PRN (13:26)
[2021-08-26] MEDS ORDERED: Loratadine 10 MG TAB PO PRN (15:59)
[2021-08-26] MEDS: Guaifenesin DM 100-10/5 ML UDCUP PO PRN ×2 (16:27→20:56)
[2021-08-26] MEDS: Enoxaparin Sodium 40 MG/0.4 ML SYRINGE SC SCH (20:57)
[2021-08-27] MEDS: Vancomycin 1 GM in Premix Bag 1 BAG IVPB SCH (03:42)
[2021-08-27 05:20] LABS: #Lymphocytes 0.4 thou/uL (1.20-3.40); #Monocytes 0.4 thou/uL (0.11-0.59); #Neutrophils 4.2 thou/uL (1.40-6.50); %Basophils 0.1 % (0.0-1.0); %Eosinophils 0.3 % (0.0-10.0); %Monocytes 8.2 % (0.0-10.0); %Neutrophils 84.4 % (42.0-75.0); Hemoglobin 12.2 g/dL (14.0-18.0); Mean Corpuscular HGB CONC 33.9 g/dL (32.0-36.0); Mean Corpuscular Hemoglobin 35.9 pg (27.0-31.0); Mean Platelet Volume 8.1 fL (7.4-10.4); Platelet Count 164 thou/uL (130-400); RBC Distribution Width 12.1 % (11.5-14.5); Red Blood Cell (RBC) Count 3.39 mill/uL (4.70-6.10)
[2021-08-27] MEDS: Piperacillin/Tazobactam 3.375 GM in Sodium Chloride 0.9% 100 ML IVPB SCH ×3 (05:22→21:13)
[2021-08-27 05:26] LABS: Anion Gap 10 mmol/L (10-20); BUN (Urea Nitrogen) 12 mg/dL (8.4-25.7); Calc. Creatinine Clearance 68 mL/min (70-130); Calcium 8.6 mg/dL (7.8-10.44); Carbon Dioxide 25 mmol/L (23-31); Chloride 109 mmol/L (98-107); Glucose 160 mg/dL (83-110); Potassium 4.1 mmol/L (3.5-5.1); Sodium 140 mmol/L (136-145)
[2021-08-27] MEDS: Budesonide 0.5 MG/2 ML NEB NEB SCH (08:10)
[2021-08-27] MEDS: Guaifenesin DM 100-10/5 ML UDCUP PO PRN ×2 (08:27→17:03)
[2021-08-27] MEDS ORDERED: Atorvastatin Calcium 40 MG TAB PO SCH (21:00)
[2021-08-27] MEDS ORDERED: traZODone HCl 50 MG TAB PO SCH (21:00)
[2021-08-27] MEDS: Enoxaparin Sodium 40 MG/0.4 ML SYRINGE SC SCH (21:13)
[2021-08-27] MEDS: Carvedilol 3.125 MG TAB PO SCH (21:13)
[2021-08-28 03:08] LABS: #Eosinphils 0.1 thou/uL (0.0-0.7); #Lymphocytes 0.8 thou/uL (1.20-3.40); #Monocytes 0.5 thou/uL (0.11-0.59); #Neutrophils 3.6 thou/uL (1.40-6.50); %Basophils 0.1 % (0.0-1.0); %Eosinophils 1.7 % (0.0-10.0); %Lymphocytes 16.7 % (21.0-51.0); %Monocytes 9.1 % (0.0-10.0); %Neutrophils 72.5 % (42.0-75.0); Hemoglobin 11.9 g/dL (14.0-18.0); Mean Corpuscular HGB CONC 34.2 g/dL (32.0-36.0); Mean Corpuscular Hemoglobin 36.2 pg (27.0-31.0); Platelet Count 166 thou/uL (130-400); RBC Distribution Width 12.2 % (11.5-14.5); Red Blood Cell (RBC) Count 3.28 mill/uL (4.70-6.10)
[2021-08-28 03:29] LABS: Vancomycin, Trough 6.1 ug/mL
[2021-08-28 03:36] LABS: Anion Gap 11 mmol/L (10-20); BUN (Urea Nitrogen) 13 mg/dL (8.4-25.7); Calc. Creatinine Clearance 65 mL/min (70-130); Calcium 8.6 mg/dL (7.8-10.44); Carbon Dioxide 26 mmol/L (23-31); Chloride 109 mmol/L (98-107); Glucose 93 mg/dL (83-110); Magnesium 1.9 mg/dL (1.6-2.6); Potassium 4.1 mmol/L (3.5-5.1); Sodium 142 mmol/L (136-145)
[2021-08-28] MEDS: Guaifenesin DM 100-10/5 ML UDCUP PO PRN (03:40)
[2021-08-28] MEDS: Vancomycin 1 GM in Premix Bag 1 BAG IVPB SCH (03:40)
[2021-08-28] MEDS: Piperacillin/Tazobactam 3.375 GM in Sodium Chloride 0.9% 100 ML IVPB SCH ×2 (05:35→15:17)
[2021-08-28] MEDS: Budesonide 0.5 MG/2 ML NEB NEB SCH (07:41)
[2021-08-28] MEDS: Carvedilol 3.125 MG TAB PO SCH (08:20)
[2021-08-28] MEDS ORDERED: Amiodarone 200 MG TAB PO SCH (09:00)
[2021-08-28] MEDS ORDERED: Montelukast Sodium 10 mg Tablet PO SCH (09:00)
[2021-08-28 12:14] VITALS: BP 140/79; TEMP 97.7
[2021-08-28] MEDS ORDERED: Vancomycin 1 GM in Premix Bag 1 BAG IVPB SCH (15:00)
== END 2021-08-28 15:05 | disposition home or self-care (01) | DRG 580 ==
LOC: ERS 16:18 → SURG A 19:56 → OBSVTOIN 08-26 03:29 → SURG A 08-26 10:48
PROVIDERS: ADMIT Internal Medicine; ATTEND Internal Medicine
PROC: 0W9F0ZZ Drainage of Abdominal Wall, Open Approach (ICD-10-PCS; principal; 2021-08-26)
DX: L02.211 Cutaneous abscess of abdominal wall (principal); I50.32 Chronic diastolic (congestive) heart failure; Z20.822 Contact with and (suspected) exposure to COVID-19; I11.0 Hypertensive heart disease with heart failure; I25.10 Atherosclerotic heart disease of native coronary artery without angina pectoris; I48.0 Paroxysmal atrial fibrillation; E78.5 Hyperlipidemia, unspecified; K21.9 Gastro-esophageal reflux disease without esophagitis; D64.9 Anemia, unspecified; E87.6 Hypokalemia; B95.62 Methicillin resistant Staphylococcus aureus infection as the cause of diseases classified elsewhere; N40.0 Benign prostatic hyperplasia without lower urinary tract symptoms; Z79.899 Other long term (current) drug therapy; Z79.51 Long term (current) use of inhaled steroids; Z90.49 Acquired absence of other specified parts of digestive tract; Z87.891 Personal history of nicotine dependence
CPT/HCPCS: 0240U; 36415; 74177; 80048; 80053; 80202; 81003; 81015; 83605; 83735; 85025; 87040; 87070; 87077; 87086; 87186; 87205; 94640; 96365; G0378; J1100; J1650; J2405; J2543; J2704; J3010; J3370; J3475; J3490; J7050; J7620; J7626; Q9967

== ENCOUNTER 2022-02-01 16:38 | Emergency (ER) | payer MEDICARE, OTHER ==
[2022-02-01 17:54] LABS: Hemoglobin 15.1 g/dL (14.0-18.0); Mean Corpuscular HGB CONC 33.6 g/dL (32.0-36.0); Mean Corpuscular Hemoglobin 35.3 pg (27.0-31.0); Mean Platelet Volume 7.7 fL (7.4-10.4); Platelet Count 155 thou/uL (130-400); RBC Distribution Width 12.7 % (11.5-14.5); Red Blood Cell (RBC) Count 4.27 mill/uL (4.70-6.10); White Blood Cell (WBC) Count 5.6 thou/uL (4.8-10.8)
[2022-02-01 18:05] LABS: #Eosinphils 0.1 thou/uL (0.0-0.7); #Lymphocytes 0.6 thou/uL (1.20-3.40); #Monocytes 0.6 thou/uL (0.11-0.59); #Neutrophils 4.2 thou/uL (1.40-6.50); %Basophils 0.3 % (0.0-1.0); %Eosinophils 2.6 % (0.0-10.0); %Lymphocytes 11.5 % (21.0-51.0); %Monocytes 10.3 % (0.0-10.0); %Neutrophils 75.3 % (42.0-75.0)
[2022-02-01 18:19] LABS: ALT (SGPT) 34 U/L (8-55); AST (SGOT) 31 U/L (5-34); Albumin 3.9 g/dL (3.4-4.8); Alkaline Phosphatase 93 U/L (40-110); Anion Gap 17 mmol/L (10-20); BUN (Urea Nitrogen) 12 mg/dL (8.4-25.7); Bilirubin, Total 1.3 mg/dL (0.2-1.2); CK (CPK) 39 U/L (30-200); Calc. Creatinine Clearance 0 mL/min (70-130); Calcium 9.1 mg/dL (7.8-10.44); Carbon Dioxide 20 mmol/L (23-31); Chloride 102 mmol/L (98-107); Globulin 2.6 g/dL (2.4-3.5); Glucose 103 mg/dL (83-110); Magnesium 1.7 mg/dL (1.6-2.6); Protein, Total 6.5 g/dL (5.8-8.1); Sodium 135 mmol/L (136-145)
[2022-02-01] MEDS ORDERED: Ibuprofen 200 MG TAB ONE (18:42)
[2022-02-01] MEDS ORDERED: HYDROcodone/Acetaminophen 10/325 mg Tablet ONE (21:23)
== END 2022-02-01 21:42 | disposition home or self-care (01) ==
LOC: ERS 16:38
DX: S20.212A Contusion of left front wall of thorax, initial encounter (principal); I10 Essential (primary) hypertension; I25.10 Atherosclerotic heart disease of native coronary artery without angina pectoris; J44.9 Chronic obstructive pulmonary disease, unspecified; E78.5 Hyperlipidemia, unspecified; L40.9 Psoriasis, unspecified; D64.9 Anemia, unspecified; K21.9 Gastro-esophageal reflux disease without esophagitis; Z79.82 Long term (current) use of aspirin; Z79.899 Other long term (current) drug therapy; W18.30XA Fall on same level, unspecified, initial encounter
CPT/HCPCS: 36415; 71250; 80053; 80143; 82550; 83735; 84484; 85025; 93005; 80307

== ENCOUNTER 2022-02-18 14:21 | Emergency (ER) | payer MEDICARE, OTHER ==
[2022-02-18] MEDS ORDERED: Cyclobenzaprine 10 MG TAB ONE (17:21)
== END 2022-02-18 17:30 | disposition home or self-care (01) ==
LOC: ERS 14:21
DX: M54.6 Pain in thoracic spine (principal); E78.5 Hyperlipidemia, unspecified; I10 Essential (primary) hypertension; I25.10 Atherosclerotic heart disease of native coronary artery without angina pectoris; L40.9 Psoriasis, unspecified; D64.9 Anemia, unspecified; K21.9 Gastro-esophageal reflux disease without esophagitis; J44.9 Chronic obstructive pulmonary disease, unspecified; Z79.82 Long term (current) use of aspirin; Z79.899 Other long term (current) drug therapy

== ENCOUNTER 2022-12-19 11:45 | Observation (INO) | payer MEDICARE, OTHER ==
[2022-12-19 17:16] LABS: #Eosinphils 0.1 thou/uL (0.0-0.7); #Lymphocytes 1.2 thou/uL (1.20-3.40); #Monocytes 0.7 thou/uL (0.11-0.59); #Neutrophils 5.6 thou/uL (1.40-6.50); %Basophils 0.6 % (0.0-1.0); %Eosinophils 1.8 % (0.0-10.0); %Lymphocytes 15.5 % (21.0-51.0); %Monocytes 8.8 % (0.0-10.0); %Neutrophils 73.3 % (42.0-75.0); Hemoglobin 14.9 g/dL (14.0-18.0); Mean Corpuscular HGB CONC 34.1 g/dL (32.0-36.0); Mean Corpuscular Hemoglobin 35.6 pg (27.0-31.0); Mean Platelet Volume 8.6 fL (7.4-10.4); Platelet Count 197 10x3/uL (130-400); RBC Distribution Width 13.5 % (11.5-14.5); Red Blood Cell (RBC) Count 4.19 mill/uL (4.70-6.10); White Blood Cell (WBC) Count 7.6 10x3/uL (4.8-10.8)
[2022-12-19 17:38] LABS: ALT (SGPT) 38 U/L (8-55); AST (SGOT) 42 U/L (5-34); Albumin 3.7 g/dL (3.4-4.8); Alkaline Phosphatase 106 U/L (40-110); Anion Gap 13 mmol/L (10-20); BUN (Urea Nitrogen) 14 mg/dL (8.4-25.7); Bilirubin, Total 1.3 mg/dL (0.2-1.2); Calc. Creatinine Clearance 0 mL/min (70-130); Calcium 9.9 mg/dL (7.8-10.44); Carbon Dioxide 25 mmol/L (23-31); Chloride 104 mmol/L (98-107); Estimated GFR 66; Globulin 2.8 g/dL (2.4-3.5); Glucose 90 mg/dL (83-110); Potassium 4.7 mmol/L (3.5-5.1); Protein, Total 6.5 g/dL (5.8-8.1); Sodium 137 mmol/L (136-145)
[2022-12-19 17:39] LABS: Acetaminophen Less than 10.0 mcg/mL (10.0-30.0); Alcohol Less than 10 mg/dL (Less than 10); Salicylate Less than 8.0 mg/dL (15.0-30.0)
[2022-12-19] MEDS ORDERED: Ondansetron PF 4 MG/2 ML Vial IVP PRN (19:08)
[2022-12-19] MEDS ORDERED: Ondansetron ODT 4 MG TAB PO PRN (19:08)
[2022-12-19] MEDS: Senokot S 8.6-50 MG TAB PO SCH (21:22)
[2022-12-19 21:44] LABS: ALT (SGPT) 33 U/L (8-55); AST (SGOT) 35 U/L (5-34); Albumin 3.4 g/dL (3.4-4.8); Alkaline Phosphatase 88 U/L (40-110); Anion Gap 9 mmol/L (10-20); BUN (Urea Nitrogen) 15 mg/dL (8.4-25.7); Bilirubin, Total 1.1 mg/dL (0.2-1.2); Calc. Creatinine Clearance 0 mL/min (70-130); Carbon Dioxide 28 mmol/L (23-31); Chloride 104 mmol/L (98-107); Estimated GFR 58; Globulin 2.4 g/dL (2.4-3.5); Glucose 113 mg/dL (83-110); Protein, Total 5.8 g/dL (5.8-8.1); Sodium 137 mmol/L (136-145)
[2022-12-19] MEDS ORDERED: traZODone HCl 150 MG TAB PO PRN ×2 (22:01→23:52)
[2022-12-19] MEDS: traMADol HCl 50 MG TAB PO PRN (22:13)
[2022-12-19 22:40] VITALS: BMI 20.9
[2022-12-20 01:59] LABS: ALT (SGPT) 31 U/L (8-55); AST (SGOT) 33 U/L (5-34); Alkaline Phosphatase 84 U/L (40-110); Anion Gap 11 mmol/L (10-20); BUN (Urea Nitrogen) 16 mg/dL (8.4-25.7); Calc. Creatinine Clearance 38 mL/min (70-130); Calcium 8.9 mg/dL (7.8-10.44); Carbon Dioxide 24 mmol/L (23-31); Chloride 108 mmol/L (98-107); Estimated GFR 66; Globulin 2.3 g/dL (2.4-3.5); Glucose 88 mg/dL (83-110); Protein, Total 5.3 g/dL (5.8-8.1); Sodium 139 mmol/L (136-145)
[2022-12-20 08:30] LABS: #Eosinphils 0.1 thou/uL (0.0-0.7); #Monocytes 0.7 thou/uL (0.11-0.59); #Neutrophils 3.9 thou/uL (1.40-6.50); %Basophils 0.6 % (0.0-1.0); %Eosinophils 2.3 % (0.0-10.0); %Lymphocytes 16.7 % (21.0-51.0); %Monocytes 12.2 % (0.0-10.0); %Neutrophils 68.2 % (42.0-75.0); Hemoglobin 14.2 g/dL (14.0-18.0); Mean Corpuscular HGB CONC 32.8 g/dL (32.0-36.0); Mean Corpuscular Hemoglobin 34.4 pg (27.0-31.0); Platelet Count 186 10x3/uL (130-400); RBC Distribution Width 13.6 % (11.5-14.5); Red Blood Cell (RBC) Count 4.12 mill/uL (4.70-6.10); White Blood Cell (WBC) Count 5.7 10x3/uL (4.8-10.8)
[2022-12-20 08:42] LABS: Magnesium 1.7 mg/dL (1.6-2.6); Phosphorus 3.1 mg/dL (2.3-4.7)
[2022-12-20] MEDS ORDERED: Amiodarone 200 MG TAB PO SCH (09:00)
[2022-12-20] MEDS ORDERED: Montelukast Sodium 10 mg Tablet PO SCH (09:00)
[2022-12-20] MEDS ORDERED: Carvedilol 3.125 MG TAB PO SCH (09:00)
[2022-12-20] MEDS: Senokot S 8.6-50 MG TAB PO SCH (09:31)
[2022-12-20 11:57] VITALS: BP 92/58; TEMP 98.4
[2022-12-20] MEDS: traMADol HCl 50 MG TAB PO PRN (15:16)
[2022-12-20] MEDS ORDERED: Atorvastatin Calcium 40 MG TAB PO SCH (21:00)
== END 2022-12-20 16:17 | disposition home or self-care (01) ==
LOC: ERS 11:45 → T4-A 18:55
PROVIDERS: ADMIT Student in an Organized Health Care Education/Training Program; ATTEND Student in an Organized Health Care Education/Training Program
DX: G89.29 Other chronic pain (principal); M54.9 Dorsalgia, unspecified; S22.060A Wedge compression fracture of T7-T8 vertebra, initial encounter for closed fracture; T39.1X1A Poisoning by 4-Aminophenol derivatives, accidental (unintentional), initial encounter; I65.23 Occlusion and stenosis of bilateral carotid arteries; I48.0 Paroxysmal atrial fibrillation; M81.0 Age-related osteoporosis without current pathological fracture; M47.812 Spondylosis without myelopathy or radiculopathy, cervical region; M43.12 Spondylolisthesis, cervical region; E78.5 Hyperlipidemia, unspecified; I11.0 Hypertensive heart disease with heart failure; I50.30 Unspecified diastolic (congestive) heart failure; I25.10 Atherosclerotic heart disease of native coronary artery without angina pectoris; K21.9 Gastro-esophageal reflux disease without esophagitis; N40.0 Benign prostatic hyperplasia without lower urinary tract symptoms; R29.6 Repeated falls; J44.9 Chronic obstructive pulmonary disease, unspecified; Z79.899 Other long term (current) drug therapy; Z20.822 Contact with and (suspected) exposure to COVID-19
CPT/HCPCS: 72040; 72072; 72125; 72128; 80053 ×3; 80307; 83735; 84100; 85025 ×2; 97530; 97535; 99285; G0378 ×3; U0003; U0005; 36415

== ENCOUNTER 2023-01-30 13:24 | Outpatient (CLI) | payer MEDICARE, OTHER | END 2023-01-30 13:25 | disposition home or self-care (01) | LOC: TBSIIMAG 13:24 | PROVIDERS: ATTEND Neurological Surgery | DX: M54.6 Pain in thoracic spine (principal); R29.890 Loss of height; S22.010D Wedge compression fracture of first thoracic vertebra, subsequent encounter for fracture with routine healing | CPT/HCPCS: 72072 ==

== ENCOUNTER 2023-05-18 09:58 | Observation (INO) | payer MEDICARE, OTHER ==
[2023-05-18 10:28] LABS: #Eosinphils 0.1 thou/uL (0.0-0.7); #Monocytes 0.5 thou/uL (0.11-0.59); #Neutrophils 4.1 thou/uL (1.40-6.50); %Basophils 0.6 % (0.0-1.0); %Eosinophils 1.8 % (0.0-10.0); %Monocytes 9.2 % (0.0-10.0); Hematocrit 40.4 % (42.0-52.0); Hemoglobin 13.4 g/dL (14.0-18.0); Mean Corpuscular HGB CONC 33.2 g/dL (32.0-36.0); Mean Corpuscular Hemoglobin 34.2 pg (27.0-31.0); Mean Corpuscular Volume 103.1 fl (78.0-98.0); Mean Platelet Volume 10.4 fL (7.4-10.4); Platelet Count 153 10x3/uL (130-400); RBC Distribution Width 13.6 % (11.5-14.5); Red Blood Cell (RBC) Count 3.92 mill/uL (4.70-6.10); White Blood Cell (WBC) Count 5.4 10x3/uL (4.8-10.8)
[2023-05-18 10:53] LABS: ALT (SGPT) 39 U/L (8-55); AST (SGOT) 45 U/L (5-34); Albumin 3.7 g/dL (3.4-4.8); Alkaline Phosphatase 93 U/L (40-110); Anion Gap 11 mmol/L (10-20); BUN (Urea Nitrogen) 11 mg/dL (8.4-25.7); Bilirubin, Total 1.5 mg/dL (0.2-1.2); Calc. Creatinine Clearance 0 mL/min (70-130); Calcium 9.4 mg/dL (7.8-10.44); Carbon Dioxide 25 mmol/L (23-31); Chloride 105 mmol/L (98-107); Estimated GFR 61; Globulin 2.5 g/dL (2.4-3.5); Glucose 96 mg/dL (83-110); Lipase 28 U/L (8-78); Potassium 4.4 mmol/L (3.5-5.1); Protein, Total 6.2 g/dL (5.8-8.1); Sodium 137 mmol/L (136-145)
[2023-05-18 10:54] LABS: Troponin I Less than 0.010 ng/mL (< 0.028)
[2023-05-18 13:21] LABS: Troponin I Less than 0.010 ng/mL (< 0.028)
[2023-05-18 14:06] VITALS: BMI 20.2
[2023-05-18] MEDS ORDERED: Aspirin Chewable 81 MG TAB PO SCH (15:45)
[2023-05-18 16:51] LABS: Troponin I Less than 0.010 ng/mL (< 0.028)
[2023-05-18] MEDS ORDERED: Acetaminophen 500 MG TAB PO PRN (18:33)
[2023-05-18] MEDS ORDERED: Ipratropium Bromide 0.06% Nasal Inhaler 15ml EA NARE PRN (18:33)
[2023-05-18] MEDS ORDERED: traZODone HCl 150 MG TAB PO PRN (18:33)
[2023-05-18 19:41] LABS: Troponin I Less than 0.010 ng/mL (< 0.028)
[2023-05-18] MEDS ORDERED: Atorvastatin Calcium 40 MG TAB PO SCH (21:00)
[2023-05-19 05:22] LABS: #Eosinphils 0.2 thou/uL (0.0-0.7); #Monocytes 0.7 thou/uL (0.11-0.59); #Neutrophils 4.1 thou/uL (1.40-6.50); %Basophils 0.4 % (0.0-1.0); %Eosinophils 2.8 % (0.0-10.0); %Lymphocytes 11.4 % (21.0-51.0); %Monocytes 11.8 % (0.0-10.0); %Neutrophils 72.9 % (42.0-75.0); Hematocrit 36.2 % (42.0-52.0); Hemoglobin 12.2 g/dL (14.0-18.0); Mean Corpuscular HGB CONC 33.7 g/dL (32.0-36.0); Mean Corpuscular Hemoglobin 34.5 pg (27.0-31.0); Mean Corpuscular Volume 102.3 fl (78.0-98.0); Platelet Count 150 10x3/uL (130-400); RBC Distribution Width 13.6 % (11.5-14.5); Red Blood Cell (RBC) Count 3.54 mill/uL (4.70-6.10); White Blood Cell (WBC) Count 5.7 10x3/uL (4.8-10.8)
[2023-05-19 05:54] LABS: Anion Gap 11 mmol/L (10-20); BUN (Urea Nitrogen) 11 mg/dL (8.4-25.7); Calc. Creatinine Clearance 43 mL/min (70-130); Carbon Dioxide 23 mmol/L (23-31); Cardiac Risk 2.8 (Less than 4.5); Chloride 108 mmol/L (98-107); Cholesterol 125 mg/dl (< 200 Desired); Estimated GFR 72; Glucose 88 mg/dL (83-110); HDL Cholesterol 45 mg/dL (>60 Neg Risk); LDL Cholesterol, Calculated 55 mg/dL; Potassium 3.8 mmol/L (3.5-5.1); Sodium 138 mmol/L (136-145); Triglycerides 125 mg/dL (Less than 150)
[2023-05-19] MEDS ORDERED: Budesonide 0.5 MG/2 ML NEB NEB SCH (07:00)
[2023-05-19] MEDS ORDERED: Multivitamin w/Zinc Stress 1 TAB PO SCH (09:00)
[2023-05-19] MEDS ORDERED: Aspirin Chewable 81 MG TAB PO SCH (09:00)
[2023-05-19] MEDS ORDERED: Montelukast Sodium 10 mg Tablet PO SCH (09:00)
[2023-05-19] MEDS ORDERED: Amiodarone 200 MG TAB PO SCH (09:00)
[2023-05-19] MEDS ORDERED: BROMFENAC SODIUM EA EYE SCH (09:00)
[2023-05-19] MEDS ORDERED: Regadenoson 0.4 MG/5 ML SYRINGE ONE (11:20)
[2023-05-19 16:04] VITALS: BP 98/61; TEMP 98
== END 2023-05-19 16:53 | disposition home or self-care (01) ==
LOC: ERS 09:58 → ERHOLD 11:56 → 2SW 13:34
PROVIDERS: ADMIT Student in an Organized Health Care Education/Training Program; ATTEND Student in an Organized Health Care Education/Training Program
DX: R07.89 Other chest pain (principal); I25.110 Atherosclerotic heart disease of native coronary artery with unstable angina pectoris; J44.9 Chronic obstructive pulmonary disease, unspecified; K21.9 Gastro-esophageal reflux disease without esophagitis; J45.909 Unspecified asthma, uncomplicated; I48.91 Unspecified atrial fibrillation; Z95.0 Presence of cardiac pacemaker; Z90.49 Acquired absence of other specified parts of digestive tract; Z98.890 Other specified postprocedural states; Z79.82 Long term (current) use of aspirin; Z79.899 Other long term (current) drug therapy
CPT/HCPCS: 71045; 78452; 80048; 80053; 80061; 83690; 83880; 84443; 84484 ×2; 85025 ×2; 93005; 93017; 94640; 96372; 99285; A9500; G0378 ×3; 36415; J1650; J2785; J7626

== ENCOUNTER 2024-04-04 10:18 | Emergency (ER) | payer MEDICARE, OTHER ==
[2024-04-04 11:11] LABS: #Basophils 0.03 10x3/uL (0.0-0.2); %Basophils 0.4 % (0.0-1.0); %Eosinophils 1.6 % (0.0-10.0); %Lymphocytes 10.1 % (21.0-51.0); %Monocytes 9.8 % (0.0-10.0); %Neutrophils 77.2 % (42.0-75.0); Hematocrit 41.2 % (42.0-52.0); Hemoglobin 13.6 g/dL (14.0-18.0); Mean Corpuscular Hemoglobin 34.1 pg (27.0-31.0); Mean Corpuscular Volume 103.3 fL (78.0-98.0); Mean Platelet Volume 10.4 fL (7.4-10.4); Platelet Count 165 10x3/uL (130-400); RBC Distribution Width 14.1 % (11.5-14.5); Red Blood Cell (RBC) Count 3.99 mill/uL (4.70-6.10)
[2024-04-04 11:24] LABS: ALT (SGPT) 27 U/L (8-55); AST (SGOT) 33 U/L (5-34); Albumin 2.9 g/dL (3.4-4.8); Alkaline Phosphatase 117 U/L (40-110); Anion Gap 12 mmol/L (10-20); BUN (Urea Nitrogen) 15 mg/dL (8.4-25.7); Bilirubin, Total 0.9 mg/dL (0.2-1.2); Calc. Creatinine Clearance 0 mL/min (70-130); Calcium 8.8 mg/dL (7.8-10.44); Carbon Dioxide 22 mmol/L (23-31); Chloride 106 mmol/L (98-107); Estimated GFR 46; Globulin 3.2 g/dL (2.4-3.5); Glucose 89 mg/dL (83-110); Potassium 4.5 mmol/L (3.5-5.1); Protein, Total 6.1 g/dL (5.8-8.1); Sodium 135 mmol/L (136-145)
[2024-04-04 11:28] LABS: INR-International Normal Ratio 1.1; Prothrombin Time 14.2 sec (12.0-14.7)
[2024-04-04 11:29] LABS: PTT 28.6 sec (22.9-36.1)
[2024-04-04] MEDS ORDERED: Ketorolac Tromethamine 30 MG (1 mL) VIAL ONE (12:29)
== END 2024-04-04 13:05 | disposition home or self-care (01) ==
LOC: ERS 10:18
DX: S73.101A Unspecified sprain of right hip, initial encounter (principal); M25.512 Pain in left shoulder; J44.9 Chronic obstructive pulmonary disease, unspecified; I10 Essential (primary) hypertension; I25.10 Atherosclerotic heart disease of native coronary artery without angina pectoris; Z79.899 Other long term (current) drug therapy; W01.0XXA Fall on same level from slipping, tripping and stumbling without subsequent striking against object, initial encounter
CPT/HCPCS: 71045; 73030; 73502; 73700; 80053; 85025; 85610; 85730; 93005; J1885; 36415; 96372

== ENCOUNTER 2024-07-13 09:11 | Emergency (ER) | payer MEDICARE, OTHER ==
[2024-07-13] MEDS ORDERED: Acetaminophen 500 MG TAB ONE (10:21)
== END 2024-07-13 13:54 | disposition home or self-care (01) ==
LOC: ERS 09:11
DX: S20.211A Contusion of right front wall of thorax, initial encounter (principal); R91.1 Solitary pulmonary nodule; I10 Essential (primary) hypertension; I25.10 Atherosclerotic heart disease of native coronary artery without angina pectoris; J44.9 Chronic obstructive pulmonary disease, unspecified; W07.XXXA Fall from chair, initial encounter
CPT/HCPCS: 71250; 93005

== ENCOUNTER 2024-07-21 06:01 | Inpatient (IN) | payer MEDICARE ==
[2024-07-21 07:15] LABS: #Basophils Less than 0.03 10x3/uL (0.0-0.2); %Basophils 0.3 % (0.0-1.0); %Eosinophils 1.8 % (0.0-10.0); %Lymphocytes 8.1 % (21.0-51.0); %Monocytes 9.5 % (0.0-10.0); %Neutrophils 79.6 % (42.0-75.0); Hemoglobin 13.9 g/dL (14.0-18.0); Mean Corpuscular HGB CONC 33.1 g/dL (32.0-36.0); Mean Corpuscular Hemoglobin 34.8 pg (27.0-31.0); Mean Corpuscular Volume 105.3 fL (78.0-98.0); Mean Platelet Volume 10.6 fL (7.4-10.4); Platelet Count 155 10x3/uL (130-400); RBC Distribution Width 14.6 % (11.5-14.5); Red Blood Cell (RBC) Count 3.99 mill/uL (4.70-6.10)
[2024-07-21 07:37] LABS: ALT (SGPT) 33 U/L (8-55); AST (SGOT) 41 U/L (5-34); Alkaline Phosphatase 117 U/L (40-110); Anion Gap 12 mmol/L (10-20); BUN (Urea Nitrogen) 15 mg/dL (8.4-25.7); Calc. Creatinine Clearance 0 mL/min (70-130); Calcium 8.7 mg/dL (7.8-10.44); Carbon Dioxide 26 mmol/L (23-31); Chloride 105 mmol/L (98-107); Estimated GFR 49; Globulin 2.6 g/dL (2.4-3.5); Glucose 102 mg/dL (83-110); Potassium 3.5 mmol/L (3.5-5.1); Protein, Total 5.6 g/dL (5.8-8.1); Sodium 139 mmol/L (136-145)
[2024-07-21 07:58] LABS: Troponin I 0.019 ng/mL (< 0.028)
[2024-07-21] MEDS ORDERED: Iopamidol-370 76% 500 ML MDV (1 ML CHARGE) ONE (10:23)
[2024-07-21] MEDS ORDERED: Acetaminophen 500 MG TAB ONE (10:28)
[2024-07-21 10:41] LABS: Bilirubin Negative (Negative); Blood, Urine 2+ (Negative); CAUTI Indications for Culture Pelvic or flank pain; Clarity Clear (Clear); Glucose, Urine (Dipstick) Normal (Negative); Ketone, Urine Negative (Negative); Leukocyte 500 Leu/uL (Negative); Nitrite 2+ (Negative); Protein, Urine (Dipstick) 30 mg/dL (Neg-Trace); Squamous Epithelial 0-3 HPF (0-3); Urobilinogen Normal mg/dL (Less than 2); WBC/HPF Greater than 50 HPF (0-3)
[2024-07-21 10:45] LABS: Bacteria/HPF 1+ HPF (None Seen); Specific Gravity, Urine 1.047 (1.002-1.036)
[2024-07-21 10:46] LABS: Urine Culture Reflex Yes Yes
[2024-07-21] MEDS ORDERED: Sodium Chloride 0.9% 100 ML ONE (11:16)
[2024-07-21] MEDS ORDERED: cefTRIAXone (ROCEPHIN) 2 GM VIAL ONE (11:16)
[2024-07-21] MEDS ORDERED: PROPOFOL 20 ML ONE (11:33)
[2024-07-21] MEDS ORDERED: fentaNYL PF 100 MCG/2 ML SYRINGE ONE (11:33)
[2024-07-21] MEDS ORDERED: Lidocaine 1% PF 5 ML VIAL ONE (11:36)
[2024-07-21] MEDS ORDERED: Iopamidol 15 ML ONE (11:44)
[2024-07-21] MEDS ORDERED: Acetaminophen 325 MG TAB PO PRN (12:13)
[2024-07-21] MEDS ORDERED: Rocuronium Bromide 10 MG/ML (10ML VIAL) ONE (12:33)
[2024-07-21] MEDS ORDERED: PHENYLEPHRINE-NS 100 MCG/ML 10 ML SYRINGE ONE (13:06)
[2024-07-21] MEDS ORDERED: Promethazine HCl 25 MG/ML VIAL IM PRN (13:20)
[2024-07-21] MEDS ORDERED: Ondansetron HCl/PF 4 MG/2 ML Vial IVP PRN (13:20)
[2024-07-21] MEDS ORDERED: Dexamethasone 4 mg/ml Vial ONE (13:21)
[2024-07-21] MEDS ORDERED: Ondansetron PF 4 MG/2 ML Vial ONE (13:21)
[2024-07-21] MEDS ORDERED: diphenhydrAMINE 50 MG/ML VIAL IVP PRN (13:22)
[2024-07-21] MEDS ORDERED: HYDROcodone/Acetaminophen 5/325 mg Tablet PO PRN (13:22)
[2024-07-21] MEDS ORDERED: Ondansetron PF 4 MG/2 ML Vial IVP PRN ×2 (13:22→13:23)
[2024-07-21] MEDS ORDERED: SUGAMMADEX SODIUM 200 MG/2 ML VIAL ONE (13:24)
[2024-07-21] MEDS ORDERED: Ipratropium Bromide 0.06% Nasal Inhaler 15ml EA NARE PRN (13:47)
[2024-07-21] MEDS: Phenazopyridine HCl 100 MG TAB PO SCH (15:37)
[2024-07-21] MEDS: Albuterol 1.25 MG (3 mL) NEB NEB SCH (16:44)
[2024-07-21] MEDS: Sodium Chloride 0.9% 1,000 ML IV SCH (18:00)
[2024-07-21] MEDS: FLU (Fluad Triv) TS24-25 (65UP)/MF59C/PF 45 MCG/0.5 ML Syringe IM ONE (18:09)
[2024-07-21 18:19] VITALS: BMI 27.1
[2024-07-21] MEDS: Famotidine/PF 20 mg/2ml Vial SLOW IVP SCH (20:35)
[2024-07-21] MEDS: Atorvastatin Calcium 40 MG TAB PO SCH (20:35)
[2024-07-22] MEDS: cefTRIAXone\\ROCEPHIN 1 GM in Sodium Chloride 0.9% 100 ML IVPB SCH (05:15)
[2024-07-22 06:00] LABS: #Basophils Less than 0.03 10x3/uL (0.0-0.2); #Eosinophils Less than 0.03 10x3/uL (0.0-0.7); %Basophils 0.1 % (0.0-1.0); %Lymphocytes 4.2 % (21.0-51.0); %Monocytes 6.2 % (0.0-10.0); %Neutrophils 88.7 % (42.0-75.0); Hematocrit 35.4 % (42.0-52.0); Hemoglobin 11.9 g/dL (14.0-18.0); Mean Corpuscular HGB CONC 33.6 g/dL (32.0-36.0); Mean Corpuscular Hemoglobin 34.4 pg (27.0-31.0); Mean Corpuscular Volume 102.3 fL (78.0-98.0); Mean Platelet Volume 10.8 fL (7.4-10.4); Platelet Count 151 10x3/uL (130-400); RBC Distribution Width 14.5 % (11.5-14.5); Red Blood Cell (RBC) Count 3.46 mill/uL (4.70-6.10)
[2024-07-22 06:24] LABS: Anion Gap 10 mmol/L (10-20); BUN (Urea Nitrogen) 16 mg/dL (8.4-25.7); Calc. Creatinine Clearance 52 mL/min (70-130); Calcium 8.2 mg/dL (7.8-10.44); Carbon Dioxide 23 mmol/L (23-31); Chloride 109 mmol/L (98-107); Estimated GFR 64; Glucose 104 mg/dL (83-110); Potassium 4.5 mmol/L (3.5-5.1); Sodium 137 mmol/L (136-145)
[2024-07-22] MEDS: Budesonide 0.5 MG/2 ML NEB INH SCH (07:58)
[2024-07-22] MEDS ORDERED: Enoxaparin 40 MG (0.4 mL) SYRINGE SC SCH (09:00)
[2024-07-22] MEDS ORDERED: Enoxaparin 30 MG (0.3 mL) SYRINGE SC SCH (09:00)
[2024-07-22] MEDS: Amiodarone 200 MG TAB PO SCH (09:29)
[2024-07-22] MEDS: Carvedilol 3.125 MG TAB PO SCH (09:29)
[2024-07-22] MEDS: Tamsulosin HCl 0.4 MG CAP PO SCH (09:30)
[2024-07-22] MEDS: Polyethylene Glycol 3350 17 GM Packet PO SCH (09:30)
[2024-07-22] MEDS ORDERED: Furosemide 40 MG (4 mL) VIAL ONE (12:04)
[2024-07-22 15:50] LABS: Bilirubin Negative (Negative); Blood, Urine 3+ (Negative); Clarity Turbid (Clear); Glucose, Urine (Dipstick) Normal (Negative); Ketone, Urine Negative (Negative); Leukocyte 250 Leu/uL (Negative); Nitrite Negative (Negative); Protein, Urine (Dipstick) 10 mg/dL (Neg-Trace); RBC/HPF Greater than 50 HPF (0-3); Specific Gravity, Urine 1.001 (1.002-1.036); Squamous Epithelial 0-3 HPF (0-3); Urobilinogen Normal mg/dL (Less than 2); WBC/HPF 21-50 HPF (0-3)
[2024-07-22 15:51] LABS: Bacteria/HPF 1+ HPF (None Seen)
[2024-07-22] MEDS: Oxybutynin 5 MG TAB PO PRN (17:09)
[2024-07-22] MEDS: HYDROcodone/Acetaminophen 5/325 mg Tablet PO PRN (17:09)
[2024-07-22] MEDS: Acetaminophen 500 MG TAB PO PRN (19:50)
[2024-07-22] MEDS: traZODone HCl 50 MG TAB PO PRN (19:50)
[2024-07-23 05:52] LABS: #Basophils Less than 0.03 10x3/uL (0.0-0.2); %Basophils 0.3 % (0.0-1.0); %Eosinophils 0.6 % (0.0-10.0); %Lymphocytes 9.3 % (21.0-51.0); %Monocytes 7.2 % (0.0-10.0); %Neutrophils 82.2 % (42.0-75.0); Hematocrit 35.7 % (42.0-52.0); Hemoglobin 11.9 g/dL (14.0-18.0); Mean Corpuscular HGB CONC 33.3 g/dL (32.0-36.0); Mean Corpuscular Hemoglobin 34.2 pg (27.0-31.0); Mean Corpuscular Volume 102.6 fL (78.0-98.0); Mean Platelet Volume 10.5 fL (7.4-10.4); Platelet Count 121 10x3/uL (130-400); RBC Distribution Width 14.6 % (11.5-14.5); Red Blood Cell (RBC) Count 3.48 mill/uL (4.70-6.10)
[2024-07-24 06:28] LABS: #Basophils Less than 0.03 10x3/uL (0.0-0.2); %Basophils 0.3 % (0.0-1.0); %Eosinophils 0.8 % (0.0-10.0); %Lymphocytes 10.6 % (21.0-51.0); %Monocytes 9.5 % (0.0-10.0); %Neutrophils 78.1 % (42.0-75.0); Hematocrit 35.3 % (42.0-52.0); Hemoglobin 11.5 g/dL (14.0-18.0); Mean Corpuscular HGB CONC 32.6 g/dL (32.0-36.0); Mean Corpuscular Hemoglobin 34.7 pg (27.0-31.0); Mean Corpuscular Volume 106.6 fL (78.0-98.0); Mean Platelet Volume 10.8 fL (7.4-10.4); Platelet Count 104 10x3/uL (130-400); RBC Distribution Width 14.5 % (11.5-14.5); Red Blood Cell (RBC) Count 3.31 mill/uL (4.70-6.10)
[2024-07-24 08:06] VITALS: BP 104/57; TEMP 98.7
== END 2024-07-24 14:20 | disposition home health service (06) | DRG 660 ==
LOC: ERS 06:01 → ERHOLD 12:18 → SURG A 14:43 → OBSVTOIN 07-22 14:51
PROVIDERS: ADMIT Family Medicine; ATTEND Family Medicine
PROC: 0T778DZ Dilation of Left Ureter with Intraluminal Device, Via Natural or Artificial Opening Endoscopic (ICD-10-PCS; principal; 2024-07-21)
PROC: BT1FZZZ Fluoroscopy of Left Kidney, Ureter and Bladder (ICD-10-PCS; 2024-07-21)
DX: N13.6 Pyonephrosis (principal); M84.48XA Pathological fracture, other site, initial encounter for fracture; I25.10 Atherosclerotic heart disease of native coronary artery without angina pectoris; K21.9 Gastro-esophageal reflux disease without esophagitis; J44.9 Chronic obstructive pulmonary disease, unspecified; E78.5 Hyperlipidemia, unspecified; R53.81 Other malaise; R29.6 Repeated falls; W19.XXXA Unspecified fall, initial encounter; R91.1 Solitary pulmonary nodule; N26.1 Atrophy of kidney (terminal); I48.0 Paroxysmal atrial fibrillation; I35.0 Nonrheumatic aortic (valve) stenosis; I45.10 Unspecified right bundle-branch block; I10 Essential (primary) hypertension; N40.0 Benign prostatic hyperplasia without lower urinary tract symptoms; R30.0 Dysuria; B96.5 Pseudomonas (aeruginosa) (mallei) (pseudomallei) as the cause of diseases classified elsewhere; Y93.01 Activity, walking, marching and hiking; Y92.89 Other specified places as the place of occurrence of the external cause; Z79.899 Other long term (current) drug therapy; Z79.82 Long term (current) use of aspirin; Z79.51 Long term (current) use of inhaled steroids; Z93.3 Colostomy status; Z95.0 Presence of cardiac pacemaker; Z90.49 Acquired absence of other specified parts of digestive tract; Z93.2 Ileostomy status; Z92.21 Personal history of antineoplastic chemotherapy; Z85.038 Personal history of other malignant neoplasm of large intestine; Z98.61 Coronary angioplasty status
CPT/HCPCS: 36415; 70450; 71260; 72125; 74177; 74420; 78708; 80048; 80053; 81001; 84484; 85025; 87077; 87086; 93005; 93306; 94640; 96374; 96375; 96376; A4641; A9562; C1769; C2617; G0378; J0696; J1100; J1940; J2405; J2704; J3490; J7030; J7626; Q9967

== ENCOUNTER 2024-07-29 10:36 | Outpatient (CLI) | payer MEDICARE ==
[2024-07-29 12:29] LABS: #Basophils 0.03 10x3/uL (0.0-0.2); %Basophils 0.3 % (0.0-1.0); %Eosinophils 0.8 % (0.0-10.0); %Lymphocytes 6.3 % (21.0-51.0); %Monocytes 10.1 % (0.0-10.0); %Neutrophils 81.4 % (42.0-75.0); Hematocrit 38.1 % (42.0-52.0); Hemoglobin 12.5 g/dL (14.0-18.0); Mean Corpuscular HGB CONC 32.8 g/dL (32.0-36.0); Mean Corpuscular Hemoglobin 34.7 pg (27.0-31.0); Mean Corpuscular Volume 105.8 fL (78.0-98.0); Mean Platelet Volume 10.6 fL (7.4-10.4); Platelet Count 144 10x3/uL (130-400); RBC Distribution Width 14.5 % (11.5-14.5)
[2024-07-29 12:46] LABS: INR-International Normal Ratio 1.1; PTT 29.1 sec (22.9-36.1); Prothrombin Time 14.3 sec (12.0-14.7)
[2024-07-29 12:57] LABS: Anion Gap 10 mmol/L (10-20); BUN (Urea Nitrogen) 15 mg/dL (8.4-25.7); Calc. Creatinine Clearance 0 mL/min (70-130); Calcium 8.6 mg/dL (7.8-10.44); Carbon Dioxide 25 mmol/L (23-31); Chloride 105 mmol/L (98-107); Estimated GFR 61; Glucose 92 mg/dL (83-110); Potassium 3.9 mmol/L (3.5-5.1); Sodium 136 mmol/L (136-145)
[2024-07-29 15:01] LABS: Bacteria/HPF 2+ HPF (None Seen); Blood, Urine 3+ (Negative); Glucose, Urine (Dipstick) Normal (Negative); Ketone, Urine Negative (Negative); Leukocyte 500 Leu/uL (Negative); Protein, Urine (Dipstick) 50 mg/dL (Neg-Trace); RBC/HPF Greater than 50 HPF (0-3); Squamous Epithelial 0-3 HPF (0-3); WBC/HPF Greater than 50 HPF (0-3); pH, Urine 5.5 (5.0-9.0)
[2024-07-29 15:03] LABS: Clarity Hazy (Clear); Specific Gravity, Urine 1.015 (1.002-1.036)
[2024-07-29 15:04] LABS: Bilirubin Unable to Interpret (Negative); Nitrite Unable to Interpret (Negative); Urobilinogen UNABLE TO INTERPRET mg/dL (Less than 2)
== END 2024-07-29 10:37 | disposition home or self-care (01) ==
LOC: LABBT 10:36
PROVIDERS: ATTEND Urology
DX: Z01.812 Encounter for preprocedural laboratory examination (principal); N20.2 Calculus of kidney with calculus of ureter; N13.5 Crossing vessel and stricture of ureter without hydronephrosis; N40.0 Benign prostatic hyperplasia without lower urinary tract symptoms; B96.5 Pseudomonas (aeruginosa) (mallei) (pseudomallei) as the cause of diseases classified elsewhere; I25.10 Atherosclerotic heart disease of native coronary artery without angina pectoris
CPT/HCPCS: 80048; 81001; 85025; 85610; 85730; 87086

== ENCOUNTER → 2024-08-10 | Day surgery (SDC) | payer MEDICARE, OTHER ==
[2024-07-29 11:14] VITALS: BMI 20.5
[~2024-08-10] MED LIST changes: +Dexamethasone 20 MG/5 ML VIAL ONE; +Famotidine/PF 20 mg/2ml Vial ONE; +Iopamidol 30 ML ONE; -Iopamidol-370 76% 500 ML 1 ML ONE; +LevoFLOXacin D5W 500 mg (100 mL) BAG ONE; +Lidocaine 2% PF 5 ML VIAL ONE; +Ondansetron PF 4 MG/2 ML Vial ONE; +PROPOFOL 20 ML ONE; +Phenazopyridine HCl 100 MG TAB ONE; +Rocuronium Bromide 10 MG/ML (10ML VIAL) ONE; +SUGAMMADEX SODIUM 200 MG/2 ML VIAL ONE; +Tamsulosin HCl 0.4 MG CAP ONE; +ePHEDrine Sulfate 50 MG/10 ML VIAL ONE; +fentaNYL 50 mcg/mL 1 mL Vial ONE
== END ==
LOC: SDC 07:26
PROVIDERS: ATTEND Urology
PROC: 0TF78ZZ Fragmentation in Left Ureter, Via Natural or Artificial Opening Endoscopic (ICD-10-PCS; principal; 2024-08-10)
PROC: 0T778DZ Dilation of Left Ureter with Intraluminal Device, Via Natural or Artificial Opening Endoscopic (ICD-10-PCS; 2024-08-10)
DX: N13.5 Crossing vessel and stricture of ureter without hydronephrosis (principal); N20.1 Calculus of ureter; N40.0 Benign prostatic hyperplasia without lower urinary tract symptoms; I25.10 Atherosclerotic heart disease of native coronary artery without angina pectoris; Z85.038 Personal history of other malignant neoplasm of large intestine; Z87.442 Personal history of urinary calculi; Z90.49 Acquired absence of other specified parts of digestive tract; Z98.890 Other specified postprocedural states; Z79.82 Long term (current) use of aspirin; Z79.51 Long term (current) use of inhaled steroids; Z79.899 Other long term (current) drug therapy
CPT/HCPCS: 52356; 74018; 74420; C1747; C1769; C2617; J1100; J1956; J2405; J2704; J3010; J3490; Q9967

== ENCOUNTER 2024-08-28 11:54 | Outpatient (CLI) | payer MEDICARE ==
[2024-08-28 13:23] LABS: #Basophils 0.04 10x3/uL (0.0-0.2); %Basophils 0.4 % (0.0-1.0); %Eosinophils 1.1 % (0.0-10.0); %Lymphocytes 7.9 % (21.0-51.0); %Monocytes 11.3 % (0.0-10.0); %Neutrophils 78.2 % (42.0-75.0); Hematocrit 39.8 % (42.0-52.0); Hemoglobin 13.2 g/dL (14.0-18.0); Mean Corpuscular HGB CONC 33.2 g/dL (32.0-36.0); Mean Corpuscular Hemoglobin 34.7 pg (27.0-31.0); Mean Corpuscular Volume 104.7 fL (78.0-98.0); Mean Platelet Volume 10.6 fL (7.4-10.4); Platelet Count 215 10x3/uL (130-400); RBC Distribution Width 14.9 % (11.5-14.5)
[2024-08-28 13:30] LABS: Bacteria/HPF 2+ HPF (None Seen); Bilirubin Negative (Negative); Blood, Urine 3+ (Negative); Clarity Turbid (Clear); Glucose, Urine (Dipstick) Normal (Negative); Ketone, Urine Negative (Negative); Leukocyte 500 Leu/uL (Negative); Nitrite 1+ (Negative); Protein, Urine (Dipstick) 100 mg/dL (Neg-Trace); Specific Gravity, Urine 1.011 (1.002-1.036); Squamous Epithelial None Seen HPF (0-3); Urobilinogen Normal mg/dL (Less than 2)
[2024-08-28 13:37] LABS: Transitional Epithelial 0-3 HPF (None Seen); WBC/HPF 21-50 HPF (0-3)
[2024-08-28 13:46] LABS: Anion Gap 11 mmol/L (10-20); BUN (Urea Nitrogen) 11 mg/dL (8.4-25.7); Calc. Creatinine Clearance 0 mL/min (70-130); Calcium 8.3 mg/dL (7.8-10.44); Carbon Dioxide 25 mmol/L (23-31); Chloride 104 mmol/L (98-107); Estimated GFR 71; Glucose 104 mg/dL (83-110); Potassium 4.1 mmol/L (3.5-5.1); Sodium 136 mmol/L (136-145)
[2024-08-28 13:54] LABS: INR-International Normal Ratio 1.2; PTT 29.1 sec (22.9-36.1); Prothrombin Time 14.8 sec (12.0-14.7)
== END 2024-08-28 11:55 | disposition home or self-care (01) ==
LOC: LABBT 11:54
PROVIDERS: ATTEND Urology
DX: Z01.818 Encounter for other preprocedural examination (principal); N13.5 Crossing vessel and stricture of ureter without hydronephrosis; N20.2 Calculus of kidney with calculus of ureter; B96.5 Pseudomonas (aeruginosa) (mallei) (pseudomallei) as the cause of diseases classified elsewhere; I25.10 Atherosclerotic heart disease of native coronary artery without angina pectoris; N40.0 Benign prostatic hyperplasia without lower urinary tract symptoms
CPT/HCPCS: 80048; 81001; 85025; 85610; 85730; 87086

== ENCOUNTER 2024-09-09 07:32 | Day surgery (SDC) | payer MEDICARE, OTHER ==
[2024-08-28 12:26] VITALS: BMI 21.7
[2024-09-09] MEDS ORDERED: cefTRIAXone (ROCEPHIN) 2 GM VIAL ONE (09:44)
[2024-09-09] MEDS ORDERED: Sodium Chloride 0.9% 100 ML ONE (09:44)
[2024-09-09] MEDS ORDERED: Piperacillin/Tazobactam 3.375 GM VIAL ONE (10:20)
[2024-09-09] MEDS ORDERED: fentaNYL PF 100 MCG/2 ML SYRINGE ONE (11:50)
[2024-09-09] MEDS ORDERED: PROPOFOL 20 ML ONE (11:51)
[2024-09-09] MEDS ORDERED: Ondansetron PF 4 MG/2 ML Vial ONE (12:36)
[2024-09-09] MEDS ORDERED: Dexamethasone 20 MG/5 ML VIAL ONE (12:36)
[2024-09-09] MEDS ORDERED: SUGAMMADEX SODIUM 200 MG/2 ML VIAL ONE (12:36)
[2024-09-09] MEDS ORDERED: Tamsulosin HCl 0.4 MG CAP ONE (13:04)
[2024-09-09] MEDS ORDERED: Phenazopyridine HCl 100 MG TAB ONE (13:04)
== END 2024-09-09 16:18 | disposition home or self-care (01) ==
LOC: SDC 07:32
PROVIDERS: ATTEND Urology
PROC: 0TC18ZZ Extirpation of Matter from Left Kidney, Via Natural or Artificial Opening Endoscopic (ICD-10-PCS; principal; 2024-09-09)
PROC: 0T778DZ Dilation of Left Ureter with Intraluminal Device, Via Natural or Artificial Opening Endoscopic (ICD-10-PCS; 2024-09-09)
DX: N20.2 Calculus of kidney with calculus of ureter (principal); N13.1 Hydronephrosis with ureteral stricture, not elsewhere classified; N40.0 Benign prostatic hyperplasia without lower urinary tract symptoms; I10 Essential (primary) hypertension; I25.10 Atherosclerotic heart disease of native coronary artery without angina pectoris; E78.5 Hyperlipidemia, unspecified; E78.2 Mixed hyperlipidemia; J44.9 Chronic obstructive pulmonary disease, unspecified; H91.93 Unspecified hearing loss, bilateral; B96.5 Pseudomonas (aeruginosa) (mallei) (pseudomallei) as the cause of diseases classified elsewhere; Z87.891 Personal history of nicotine dependence; Z79.51 Long term (current) use of inhaled steroids; Z79.2 Long term (current) use of antibiotics; Z79.899 Other long term (current) drug therapy
CPT/HCPCS: 52356; 74018; 74420; 82365; C1747; C1769; C2617; J1100; J2405; J2543; J2704; 88300; J0696

== ENCOUNTER 2024-11-13 11:57 | Emergency (ER) | payer MEDICARE, OTHER | END 2024-11-13 14:54 | disposition home or self-care (01) | LOC: ERS 11:57 | DX: M25.512 Pain in left shoulder (principal); G89.29 Other chronic pain; I10 Essential (primary) hypertension; I25.10 Atherosclerotic heart disease of native coronary artery without angina pectoris; J44.9 Chronic obstructive pulmonary disease, unspecified | CPT/HCPCS: 99283 ==

== ENCOUNTER 2025-01-26 14:08 | Inpatient (IN) | payer MEDICARE, OTHER ==
[2025-01-26] MEDS ORDERED: fentaNYL 50 mcg/mL 1 mL Vial ONE ×2 (16:12→16:24)
[2025-01-26 16:46] LABS: #Basophils Less than 0.03 10x3/uL (0.0-0.2); %Basophils 0.2 % (0.0-1.0); %Eosinophils 1.9 % (0.0-10.0); %Lymphocytes 8.5 % (21.0-51.0); %Monocytes 9.8 % (0.0-10.0); %Neutrophils 78.4 % (42.0-75.0); Hematocrit 35.2 % (42.0-52.0); Hemoglobin 11.7 g/dL (14.0-18.0); Mean Corpuscular HGB CONC 33.2 g/dL (32.0-36.0); Mean Corpuscular Hemoglobin 34.4 pg (27.0-31.0); Mean Corpuscular Volume 103.5 fL (78.0-98.0); Mean Platelet Volume 11.4 fL (7.4-10.4); Platelet Count 147 10x3/uL (130-400); RBC Distribution Width 14.5 % (11.5-14.5)
[2025-01-26 16:52] LABS: INR-International Normal Ratio 1.1; PTT 24.8 sec (22.9-36.1); Prothrombin Time 14.4 sec (12.0-14.7); Troponin I Less than 0.010 ng/mL (< 0.028)
[2025-01-26 16:56] LABS: ALT (SGPT) 38 U/L (Less than 45); AST (SGOT) 54 U/L (11-34); Albumin 2.4 g/dL (3.1-4.5); Alkaline Phosphatase 131 U/L (40-110); Anion Gap 11 mmol/L (10-20); BUN (Urea Nitrogen) 25 mg/dL (8.4-25.7); Bilirubin, Total 0.6 mg/dL (0.3-1.2); Calc. Creatinine Clearance 0 mL/min (70-130); Calcium 8.5 mg/dL (7.8-10.44); Carbon Dioxide 28 mmol/L (23-31); Chloride 104 mmol/L (98-107); Estimated GFR 68; Globulin 2.9 g/dL (2.4-3.5); Glucose 96 mg/dL (83-110); Magnesium 1.7 mg/dL (1.6-2.6); Potassium 4.4 mmol/L (3.5-5.1); Protein, Total 5.3 g/dL (5.8-8.1); Sodium 139 mmol/L (136-145)
[2025-01-26] MEDS ORDERED: Acetaminophen 325 MG TAB PO PRN (18:54)
[2025-01-26] MEDS ORDERED: Ondansetron ODT 4 MG TAB PO PRN (18:54)
[2025-01-26] MEDS ORDERED: Morphine 4 MG/ML VIAL ONE (18:59)
[2025-01-26 20:39] VITALS: BMI 19.3
[2025-01-26] MEDS: cefTRIAXone\\ROCEPHIN 2 GM in Sodium Chloride 0.9% 100 ML IVPB SCH (21:04)
[2025-01-26] MEDS: Ibuprofen 600 MG TAB PO PRN (21:42)
[2025-01-26] MEDS: traZODone HCl 50 MG TAB PO PRN (21:44)
[2025-01-27 05:09] LABS: ALT (SGPT) 28 U/L (Less than 45); AST (SGOT) 42 U/L (11-34); Alkaline Phosphatase 99 U/L (40-110); Anion Gap 10 mmol/L (10-20); BUN (Urea Nitrogen) 24 mg/dL (8.4-25.7); Bilirubin, Total 0.6 mg/dL (0.3-1.2); Calc. Creatinine Clearance 37 mL/min (70-130); Carbon Dioxide 24 mmol/L (23-31); Chloride 108 mmol/L (98-107); Estimated GFR 66; Globulin 2.6 g/dL (2.4-3.5); Glucose 80 mg/dL (83-110); Potassium 3.8 mmol/L (3.5-5.1); Protein, Total 4.6 g/dL (5.8-8.1); Sodium 138 mmol/L (136-145)
[2025-01-27 05:49] LABS: #Basophils Less than 0.03 10x3/uL (0.0-0.2); %Basophils 0.4 % (0.0-1.0); %Eosinophils 2.5 % (0.0-10.0); %Lymphocytes 13.8 % (21.0-51.0); %Monocytes 9.7 % (0.0-10.0); %Neutrophils 72.3 % (42.0-75.0); Hematocrit 33.1 % (42.0-52.0); Mean Corpuscular HGB CONC 33.2 g/dL (32.0-36.0); Mean Corpuscular Hemoglobin 34.6 pg (27.0-31.0); Mean Corpuscular Volume 104.1 fL (78.0-98.0); Mean Platelet Volume 11.1 fL (7.4-10.4); Platelet Count 131 10x3/uL (130-400); RBC Distribution Width 14.5 % (11.5-14.5); Red Blood Cell (RBC) Count 3.18 mill/uL (4.70-6.10)
[2025-01-27] MEDS: Amiodarone 200 MG TAB PO SCH (08:48)
[2025-01-27] MEDS: Tamsulosin HCl 0.4 MG CAP PO SCH (08:49)
[2025-01-27] MEDS ORDERED: Lidocaine 4% Patch TD PRN (09:00)
[2025-01-27] MEDS ORDERED: Enoxaparin 40 MG (0.4 mL) SYRINGE SC SCH (09:00)
[2025-01-27 12:42] VITALS: BMI 19.3
[2025-01-27] MEDS: Guaifenesin DM 100-10/5 ML UDCUP PO PRN (18:05)
[2025-01-28 05:51] LABS: #Basophils 0.03 10x3/uL (0.0-0.2); %Basophils 0.5 % (0.0-1.0); %Eosinophils 2.8 % (0.0-10.0); %Lymphocytes 11.3 % (21.0-51.0); %Monocytes 11.1 % (0.0-10.0); %Neutrophils 73.4 % (42.0-75.0); Hematocrit 31.5 % (42.0-52.0); Hemoglobin 10.6 g/dL (14.0-18.0); Mean Corpuscular HGB CONC 33.7 g/dL (32.0-36.0); Mean Corpuscular Hemoglobin 34.6 pg (27.0-31.0); Mean Corpuscular Volume 102.9 fL (78.0-98.0); Mean Platelet Volume 10.9 fL (7.4-10.4); Platelet Count 142 10x3/uL (130-400); RBC Distribution Width 14.5 % (11.5-14.5); Red Blood Cell (RBC) Count 3.06 mill/uL (4.70-6.10)
[2025-01-28 06:29] LABS: ALT (SGPT) 25 U/L (Less than 45); AST (SGOT) 43 U/L (11-34); Albumin 1.9 g/dL (3.1-4.5); Alkaline Phosphatase 100 U/L (40-110); Anion Gap 10 mmol/L (10-20); BUN (Urea Nitrogen) 25 mg/dL (8.4-25.7); Bilirubin, Total 0.5 mg/dL (0.3-1.2); Calc. Creatinine Clearance 33 mL/min (70-130); Calcium 7.9 mg/dL (7.8-10.44); Carbon Dioxide 26 mmol/L (23-31); Chloride 107 mmol/L (98-107); Estimated GFR 56; Globulin 2.6 g/dL (2.4-3.5); Glucose 77 mg/dL (83-110); Potassium 3.6 mmol/L (3.5-5.1); Protein, Total 4.5 g/dL (5.8-8.1); Sodium 139 mmol/L (136-145)
[2025-01-29 04:31] LABS: #Basophils 0.03 10x3/uL (0.0-0.2); %Basophils 0.4 % (0.0-1.0); %Eosinophils 2.1 % (0.0-10.0); %Lymphocytes 11.2 % (21.0-51.0); %Monocytes 11.8 % (0.0-10.0); %Neutrophils 73.8 % (42.0-75.0); Hematocrit 32.5 % (42.0-52.0); Hemoglobin 10.7 g/dL (14.0-18.0); Mean Corpuscular HGB CONC 32.9 g/dL (32.0-36.0); Mean Corpuscular Hemoglobin 34.5 pg (27.0-31.0); Mean Corpuscular Volume 104.8 fL (78.0-98.0); Mean Platelet Volume 10.7 fL (7.4-10.4); Platelet Count 138 10x3/uL (130-400); RBC Distribution Width 14.4 % (11.5-14.5)
[2025-01-29 04:47] LABS: ALT (SGPT) 26 U/L (Less than 45); AST (SGOT) 43 U/L (11-34); Albumin 1.8 g/dL (3.1-4.5); Alkaline Phosphatase 103 U/L (40-110); Anion Gap 10 mmol/L (10-20); BUN (Urea Nitrogen) 19 mg/dL (8.4-25.7); Bilirubin, Total 0.5 mg/dL (0.3-1.2); Calc. Creatinine Clearance 38 mL/min (70-130); Calcium 7.8 mg/dL (7.8-10.44); Carbon Dioxide 25 mmol/L (23-31); Chloride 109 mmol/L (98-107); Estimated GFR 67; Globulin 2.7 g/dL (2.4-3.5); Glucose 79 mg/dL (83-110); Potassium 3.6 mmol/L (3.5-5.1); Protein, Total 4.5 g/dL (5.8-8.1); Sodium 140 mmol/L (136-145)
[2025-01-29 10:55] VITALS: TEMP 98.4
[2025-01-29 11:53] VITALS: BP 105/62
== END 2025-01-29 15:46 | disposition home or self-care (01) | DRG 188 ==
LOC: ERS 14:08 → 2NO 20:02 → OBSVTOIN 01-28 09:31
PROVIDERS: ADMIT Family Medicine; ATTEND Family Medicine
PROC: 0W9930Z Drainage of Right Pleural Cavity with Drainage Device, Percutaneous Approach (ICD-10-PCS; principal; 2025-01-26)
DX: J94.8 Other specified pleural conditions (principal); D53.9 Nutritional anemia, unspecified; E78.5 Hyperlipidemia, unspecified; I48.91 Unspecified atrial fibrillation; J44.9 Chronic obstructive pulmonary disease, unspecified; K21.9 Gastro-esophageal reflux disease without esophagitis; I25.10 Atherosclerotic heart disease of native coronary artery without angina pectoris; Z98.890 Other specified postprocedural states; Z79.899 Other long term (current) drug therapy; Z87.891 Personal history of nicotine dependence; Z95.0 Presence of cardiac pacemaker; N40.0 Benign prostatic hyperplasia without lower urinary tract symptoms; F10.10 Alcohol abuse, uncomplicated
CPT/HCPCS: 32551; 36415; 71045; 71046; 71250; 74018; 80048; 80053; 81001; 83735; 83880; 84484; 85025; 85610; 85730; 86850; 86900; 86901; 87086; 93005; 94760; 96374; 96375; J0696; J2270; J3010

== ENCOUNTER 2025-02-18 10:41 | Outpatient (CLI) | payer MEDICARE, OTHER ==
[2025-02-18 12:30] LABS: #Basophils Less than 0.03 10x3/uL (0.0-0.2); %Basophils 0.2 % (0.0-1.0); %Eosinophils 0.7 % (0.0-10.0); %Lymphocytes 7.3 % (21.0-51.0); %Monocytes 10.2 % (0.0-10.0); %Neutrophils 80.5 % (42.0-75.0); Hematocrit 29.5 % (42.0-52.0); Hemoglobin 9.8 g/dL (14.0-18.0); Mean Corpuscular HGB CONC 33.2 g/dL (32.0-36.0); Mean Corpuscular Hemoglobin 34.8 pg (27.0-31.0); Mean Corpuscular Volume 104.6 fL (78.0-98.0); Mean Platelet Volume 9.8 fL (7.4-10.4); Platelet Count 136 10x3/uL (130-400); RBC Distribution Width 15.5 % (11.5-14.5); Red Blood Cell (RBC) Count 2.82 mill/uL (4.70-6.10)
[2025-02-18 12:41] LABS: Anion Gap 13 mmol/L (10-20); BUN (Urea Nitrogen) 26 mg/dL (8.4-25.7); Calc. Creatinine Clearance 0 mL/min (70-130); Calcium 8.3 mg/dL (7.8-10.44); Carbon Dioxide 24 mmol/L (23-31); Chloride 101 mmol/L (98-107); Estimated GFR 58; Glucose 87 mg/dL (83-110); Potassium 3.9 mmol/L (3.5-5.1); Sodium 134 mmol/L (136-145)
[2025-02-18 12:42] LABS: INR-International Normal Ratio 1.1; Prothrombin Time 14.8 sec (12.0-14.7)
[2025-02-18 12:43] LABS: PTT 32.2 sec (22.9-36.1)
[2025-02-18 14:19] LABS: RBC/HPF Greater than 50 HPF (0-3); Squamous Epithelial None Seen HPF (0-3); WBC/HPF Greater than 50 HPF (0-3)
[2025-02-18 14:22] LABS: Bacteria/HPF 1+ HPF (None Seen)
[2025-02-18 14:25] LABS: Bilirubin Negative (Negative); Blood, Urine 3+ (Negative); Clarity Bloody (Clear); Glucose, Urine (Dipstick) Normal (Negative); Ketone, Urine Negative (Negative); Leukocyte 250 Leu/uL (Negative); Nitrite Negative (Negative); Protein, Urine (Dipstick) 100 mg/dL (Neg-Trace); Specific Gravity, Urine 1.017 (1.002-1.036); Urobilinogen Normal mg/dL (Less than 2)
== END 2025-02-18 10:42 | disposition home or self-care (01) ==
LOC: LABBT 10:41
PROVIDERS: ATTEND Urology
DX: Z01.818 Encounter for other preprocedural examination (principal); N13.5 Crossing vessel and stricture of ureter without hydronephrosis; J94.8 Other specified pleural conditions
CPT/HCPCS: 71046; 80048; 81001; 85025; 85610; 85730; 87077; 87086; 87186; 93005; 93010

== ENCOUNTER 2025-05-08 14:51 | Inpatient (IN) | payer MEDICARE, OTHER ==
[2025-05-08] MEDS ORDERED: Ondansetron PF 4 MG/2 ML Vial ONE (15:14)
[2025-05-08] MEDS ORDERED: NOREPINEPHRINE 8 MG/250 ML-D5W 250 ML ONE (15:16)
[2025-05-08 15:23] LABS: Base Excess -9.5 mEq/L (-2.0 to +3.0); Calcium, Ionized (venous) 1.02 mmol/L (1.16-1.32); Chloride (VBG) 103 mmol/L (98-106); Hematocrit-VBG 31 % (42.0-52.0); Hemoglobin (Hb) 10.5 g/dL (12.6-17.4); Potassium (VBG) 5.91 mmol/L (3.70-5.30); Sodium 132 mmol/L (133-146)
[2025-05-08 15:25] LABS: #Basophils 0.03 10x3/uL (0.0-0.2); #Eosinophils Less than 0.03 10x3/uL (0.0-0.7); #Monocytes 0.95 10x3/uL (0.11-0.59); #Neutrophils 19.08 10x3/uL (1.40-6.50); %Basophils 0.1 % (0.0-1.0); %Eosinophils 0.0 % (0.0-10.0); %Lymphocytes 2.5 % (21.0-51.0); %Monocytes 4.5 % (0.0-10.0); %Neutrophils 90.4 % (42.0-75.0); Hematocrit 27.7 % (42.0-52.0); Hemoglobin 9.1 g/dL (14.0-18.0); Mean Corpuscular Hemoglobin 34.0 pg (27.0-31.0); Mean Corpuscular Volume 103.4 fL (78.0-98.0); Platelet Count 174 10x3/uL (130-400); Red Blood Cell (RBC) Count 2.68 mill/uL (4.70-6.10); White Blood Cell (WBC) Count 21.10 10x3/uL (4.8-10.8)
[2025-05-08 15:27] LABS: Actual Bicarbonate (HCO3v) 14.1 mEq/L (22-28)
[2025-05-08] MEDS ORDERED: Vancomycin 1 GM/200 ML (FROZEN) BAG ONE (15:43)
[2025-05-08 15:58] LABS: ALT (SGPT) 14 U/L (Less than 45); AST (SGOT) 35 U/L (11-34); Albumin 1.9 g/dL (3.1-4.5); Alkaline Phosphatase 128 U/L (40-110); Anion Gap 19 mmol/L (10-20); BUN (Urea Nitrogen) 87 mg/dL (8.4-25.7); Bilirubin, Total 0.6 mg/dL (0.3-1.2); Calc. Creatinine Clearance 0 mL/min (70-130); Calcium 7.8 mg/dL (7.8-10.44); Carbon Dioxide 15 mmol/L (23-31); Chloride 106 mmol/L (98-107); Globulin 3.5 g/dL (2.4-3.5); Glucose 65 mg/dL (83-110); Potassium 6.3 mmol/L (3.5-5.1); Sodium 134 mmol/L (136-145)
[2025-05-08] MEDS ORDERED: CALCIUM GLUC 1 GM/NS 50 ML IV Bag ONE (16:01)
[2025-05-08 17:23] LABS: Bacteria/HPF 4+ HPF (None Seen); CAUTI Indications for Culture Urological Procedure; Glucose, Urine (Dipstick) Normal (Negative); Leukocyte 500 Leu/uL (Negative); Protein, Urine (Dipstick) 20 mg/dL (Neg-Trace); RBC/HPF 21-50 HPF (0-3); Specific Gravity, Urine 1.014 (1.002-1.036); WBC/HPF Greater than 50 HPF (0-3)
[2025-05-08 17:25] LABS: Urine Culture Reflex Yes Yes
[2025-05-08] MEDS ORDERED: Glucagon 1 MG/ML KIT IM PRN (19:31)
[2025-05-08] MEDS ORDERED: Electrolyte Replacement Protocol 1 EACH FS SCH (19:45)
[2025-05-08 20:10] LABS: Albumin 1.9 g/dL (3.1-4.5); Anion Gap 18 mmol/L (10-20); BUN (Urea Nitrogen) 89 mg/dL (8.4-25.7); BUN/Creatinine Ratio 15.40; Calc. Creatinine Clearance 0 mL/min (70-130); Calcium 7.6 mg/dL (7.8-10.44); Carbon Dioxide 16 mmol/L (23-31); Chloride 105 mmol/L (98-107); Glucose 94 mg/dL (83-110); Magnesium 2.0 mg/dL (1.6-2.6); Potassium 6.3 mmol/L (3.5-5.1); Sodium 133 mmol/L (136-145)
[2025-05-08 20:13] LABS: Troponin I 0.035 ng/mL (< 0.028)
[2025-05-08] MEDS: Dextrose 50% Abboject 50 ML SYRINGE SLOW IVP SCH (20:54)
[2025-05-08] MEDS: Sodium Bicarb 50 MEQ/50 ML Abboject 8.4% SYRINGE IVP SCH (20:54)
[2025-05-08] MEDS: Sodium Bicarb 50 MEQ/50 ML Abboject 8.4% SYRINGE ONE (21:04)
[2025-05-08] MEDS: Heparin 5,000 UNITS/ML VIAL SC SCH (21:10)
[2025-05-08] MEDS: LOKELMA 10 GM PACKET PO SCH (21:18)
[2025-05-08 22:44] LABS: Troponin I 0.036 ng/mL (< 0.028)
[2025-05-08 23:22] LABS: Albumin 1.7 g/dL (3.1-4.5); Anion Gap 18 mmol/L (10-20); BUN (Urea Nitrogen) 91 mg/dL (8.4-25.7); BUN/Creatinine Ratio 15.66; Calc. Creatinine Clearance 6 mL/min (70-130); Calcium 7.2 mg/dL (7.8-10.44); Carbon Dioxide 16 mmol/L (23-31); Chloride 105 mmol/L (98-107); Glucose 74 mg/dL (83-110); Potassium 5.4 mmol/L (3.5-5.1); Sodium 134 mmol/L (136-145)
[2025-05-08] MEDS: Albumin 25% 25 GM (100 mL) BOT IVPB SCH (23:39)
[2025-05-09] MEDS: Vasopressin In 0.9 % NaCl 100 ML IV SCH (00:23)
[2025-05-09 04:29] LABS: #Basophils Less than 0.03 10x3/uL (0.0-0.2); #Eosinophils Less than 0.03 10x3/uL (0.0-0.7); #Monocytes 0.78 10x3/uL (0.11-0.59); #Neutrophils 17.53 10x3/uL (1.40-6.50); %Basophils 0.1 % (0.0-1.0); %Eosinophils 0.1 % (0.0-10.0); %Lymphocytes 3.5 % (21.0-51.0); %Monocytes 4.0 % (0.0-10.0); %Neutrophils 90.3 % (42.0-75.0); Hematocrit 24.1 % (42.0-52.0); Hemoglobin 8.0 g/dL (14.0-18.0); Mean Corpuscular Hemoglobin 33.5 pg (27.0-31.0); Mean Corpuscular Volume 100.8 fL (78.0-98.0); Platelet Count 157 10x3/uL (130-400); Red Blood Cell (RBC) Count 2.39 mill/uL (4.70-6.10); White Blood Cell (WBC) Count 19.39 10x3/uL (4.8-10.8)
[2025-05-09 04:43] LABS: ALT (SGPT) 13 U/L (Less than 45); AST (SGOT) 33 U/L (11-34); Albumin 2.7 g/dL (3.1-4.5); Alkaline Phosphatase 108 U/L (40-110); Anion Gap 21 mmol/L (10-20); BUN (Urea Nitrogen) 94 mg/dL (8.4-25.7); Bilirubin, Total 0.6 mg/dL (0.3-1.2); Calc. Creatinine Clearance 6 mL/min (70-130); Calcium 7.6 mg/dL (7.8-10.44); Carbon Dioxide 18 mmol/L (23-31); Chloride 103 mmol/L (98-107); Globulin 2.8 g/dL (2.4-3.5); Glucose 104 mg/dL (83-110); Potassium 5.7 mmol/L (3.5-5.1); Sodium 136 mmol/L (136-145)
[2025-05-09] MEDS ORDERED: Dextrose 50% Abboject 50 ML SYRINGE SLOW IVP PRN (05:52)
[2025-05-09] MEDS: NOREPINEPHRINE 8 MG/250 ML-D5W 250 ML IVPB SCH (06:00)
[2025-05-09] MEDS: CALCIUM GLUC 1 GM/NS 50 ML 1 GM in Premix 1 BAG IVPB SCH (06:03)
[2025-05-09] MEDS: Sodium Bicarb 50 MEQ/50 ML Abboject 8.4% SYRINGE IVP SCH (06:04)
[2025-05-09] MEDS: Mupirocin 1 GM TUBE TP SCH (08:24)
[2025-05-09] MEDS: Sertraline 25 MG TAB PO SCH (08:24)
[2025-05-09] MEDS: Amiodarone 200 MG TAB PO SCH (08:24)
[2025-05-09] MEDS: Pantoprazole 40 MG VIAL IVP SCH (08:24)
[2025-05-09 09:04] LABS: Albumin 2.6 g/dL (3.1-4.5); Anion Gap 20 mmol/L (10-20); BUN (Urea Nitrogen) 92 mg/dL (8.4-25.7); BUN/Creatinine Ratio 16.14; Calc. Creatinine Clearance 6 mL/min (70-130); Calcium 7.8 mg/dL (7.8-10.44); Carbon Dioxide 20 mmol/L (23-31); Chloride 104 mmol/L (98-107); Glucose 41 mg/dL (83-110); Potassium 4.9 mmol/L (3.5-5.1); Sodium 139 mmol/L (136-145)
[2025-05-09] MEDS: Dextrose 50% Abboject 50 ML SYRINGE SLOW IVP PRN (09:07)
[2025-05-10] MEDS: Melatonin 3 MG TAB PO PRN (01:00)
[2025-05-10 04:30] LABS: ALT (SGPT) 12 U/L (Less than 45); AST (SGOT) 28 U/L (11-34); Albumin 2.0 g/dL (3.1-4.5); Alkaline Phosphatase 91 U/L (40-110); Anion Gap 14 mmol/L (10-20); BUN (Urea Nitrogen) 87 mg/dL (8.4-25.7); Bilirubin, Total 0.4 mg/dL (0.3-1.2); Calc. Creatinine Clearance 7 mL/min (70-130); Calcium 6.8 mg/dL (7.8-10.44); Carbon Dioxide 22 mmol/L (23-31); Chloride 104 mmol/L (98-107); Globulin 2.3 g/dL (2.4-3.5); Glucose 133 mg/dL (83-110); Potassium 4.7 mmol/L (3.5-5.1); Sodium 135 mmol/L (136-145)
[2025-05-10 04:33] LABS: #Basophils Less than 0.03 10x3/uL (0.0-0.2); #Eosinophils Less than 0.03 10x3/uL (0.0-0.7); #Monocytes 0.88 10x3/uL (0.11-0.59); #Neutrophils 10.23 10x3/uL (1.40-6.50); %Basophils 0.1 % (0.0-1.0); %Eosinophils 0.1 % (0.0-10.0); %Lymphocytes 6.4 % (21.0-51.0); %Monocytes 7.3 % (0.0-10.0); %Neutrophils 84.8 % (42.0-75.0); Hematocrit 22.2 % (42.0-52.0); Hemoglobin 7.4 g/dL (14.0-18.0); Mean Corpuscular Hemoglobin 33.5 pg (27.0-31.0); Mean Corpuscular Volume 100.5 fL (78.0-98.0); Platelet Count 82 10x3/uL (130-400); Red Blood Cell (RBC) Count 2.21 mill/uL (4.70-6.10); White Blood Cell (WBC) Count 12.06 10x3/uL (4.8-10.8)
[2025-05-10 05:06] LABS: Burr Cells SLIGHT = 2-5 cells HPF (0-1); Macrocytosis SLIGHT = 6-15 cells HPF (0-5); Platelet Adequacy Comment Platelets Decreased; Smudge Cells 13.5 %
[2025-05-10] MEDS: CALCIUM GLUC 1 GM/NS 50 ML 1 GM in Premix 1 BAG IVPB SCH (06:30)
[2025-05-11 04:15] LABS: #Basophils Less than 0.03 10x3/uL (0.0-0.2); #Eosinophils 0.06 10x3/uL (0.0-0.7); #Monocytes 0.83 10x3/uL (0.11-0.59); #Neutrophils 12.83 10x3/uL (1.40-6.50); %Basophils 0.1 % (0.0-1.0); %Eosinophils 0.4 % (0.0-10.0); %Lymphocytes 6.7 % (21.0-51.0); %Monocytes 5.5 % (0.0-10.0); %Neutrophils 85.5 % (42.0-75.0); Hematocrit 24.9 % (42.0-52.0); Hemoglobin 8.2 g/dL (14.0-18.0); Mean Corpuscular Hemoglobin 33.5 pg (27.0-31.0); Mean Corpuscular Volume 101.6 fL (78.0-98.0); Platelet Count 94 10x3/uL (130-400); Red Blood Cell (RBC) Count 2.45 mill/uL (4.70-6.10); White Blood Cell (WBC) Count 15.00 10x3/uL (4.8-10.8)
[2025-05-11 04:43] LABS: ALT (SGPT) 14 U/L (Less than 45); AST (SGOT) 28 U/L (11-34); Albumin 1.9 g/dL (3.1-4.5); Alkaline Phosphatase 100 U/L (40-110); Anion Gap 13 mmol/L (10-20); BUN (Urea Nitrogen) 78 mg/dL (8.4-25.7); Bilirubin, Total 0.4 mg/dL (0.3-1.2); Calc. Creatinine Clearance 7 mL/min (70-130); Calcium 7.0 mg/dL (7.8-10.44); Carbon Dioxide 20 mmol/L (23-31); Chloride 110 mmol/L (98-107); Globulin 2.4 g/dL (2.4-3.5); Glucose 77 mg/dL (83-110); Potassium 3.9 mmol/L (3.5-5.1); Sodium 139 mmol/L (136-145)
[2025-05-11] MEDS: cefTRIAXone\\ROCEPHIN 2 GM in Sodium Chloride 0.9% 100 ML IVPB SCH (10:33)
[2025-05-11] MEDS: Lidocaine 2% 6 ML (Jelly) SYR TOP SCH (14:24)
[2025-05-12 05:08] LABS: #Basophils Less than 0.03 10x3/uL (0.0-0.2); #Eosinophils 0.11 10x3/uL (0.0-0.7); #Monocytes 0.64 10x3/uL (0.11-0.59); #Neutrophils 9.83 10x3/uL (1.40-6.50); %Basophils 0.1 % (0.0-1.0); %Eosinophils 0.9 % (0.0-10.0); %Lymphocytes 6.6 % (21.0-51.0); %Monocytes 5.5 % (0.0-10.0); %Neutrophils 84.9 % (42.0-75.0); Hematocrit 25.9 % (42.0-52.0); Hemoglobin 8.5 g/dL (14.0-18.0); Mean Corpuscular Hemoglobin 33.3 pg (27.0-31.0); Mean Corpuscular Volume 101.6 fL (78.0-98.0); Platelet Count 81 10x3/uL (130-400); Red Blood Cell (RBC) Count 2.55 mill/uL (4.70-6.10); White Blood Cell (WBC) Count 11.59 10x3/uL (4.8-10.8)
[2025-05-12 05:17] LABS: ALT (SGPT) 14 U/L (Less than 45); AST (SGOT) 26 U/L (11-34); Albumin 1.9 g/dL (3.1-4.5); Alkaline Phosphatase 103 U/L (40-110); Anion Gap 12 mmol/L (10-20); BUN (Urea Nitrogen) 74 mg/dL (8.4-25.7); Bilirubin, Total 0.4 mg/dL (0.3-1.2); Calc. Creatinine Clearance 9 mL/min (70-130); Calcium 7.1 mg/dL (7.8-10.44); Carbon Dioxide 18 mmol/L (23-31); Chloride 114 mmol/L (98-107); Globulin 2.5 g/dL (2.4-3.5); Glucose 77 mg/dL (83-110); Potassium 3.6 mmol/L (3.5-5.1); Sodium 140 mmol/L (136-145)
[2025-05-12] MEDS: Acetaminophen 325 MG TAB PO PRN (12:53)
[2025-05-12] MEDS: Hydrocortisone Sod Succ/PF 100 mg/2 ml Vial IVP SCH (12:55)
[2025-05-13 05:02] LABS: #Basophils Less than 0.03 10x3/uL (0.0-0.2); #Eosinophils Less than 0.03 10x3/uL (0.0-0.7); #Monocytes 0.12 10x3/uL (0.11-0.59); #Neutrophils 5.99 10x3/uL (1.40-6.50); %Basophils 0.0 % (0.0-1.0); %Eosinophils 0.0 % (0.0-10.0); %Lymphocytes 6.8 % (21.0-51.0); %Monocytes 1.8 % (0.0-10.0); %Neutrophils 90.2 % (42.0-75.0); Hematocrit 23.9 % (42.0-52.0); Hemoglobin 7.8 g/dL (14.0-18.0); Mean Corpuscular Hemoglobin 33.2 pg (27.0-31.0); Mean Corpuscular Volume 101.7 fL (78.0-98.0); Platelet Count 51 10x3/uL (130-400); Red Blood Cell (RBC) Count 2.35 mill/uL (4.70-6.10); White Blood Cell (WBC) Count 6.64 10x3/uL (4.8-10.8)
[2025-05-13 05:15] LABS: ALT (SGPT) 12 U/L (Less than 45); AST (SGOT) 24 U/L (11-34); Albumin 1.8 g/dL (3.1-4.5); Alkaline Phosphatase 101 U/L (40-110); Anion Gap 14 mmol/L (10-20); BUN (Urea Nitrogen) 64 mg/dL (8.4-25.7); Bilirubin, Total 0.4 mg/dL (0.3-1.2); Calc. Creatinine Clearance 10 mL/min (70-130); Calcium 7.5 mg/dL (7.8-10.44); Carbon Dioxide 16 mmol/L (23-31); Chloride 110 mmol/L (98-107); Globulin 2.6 g/dL (2.4-3.5); Glucose 110 mg/dL (83-110); Potassium 3.7 mmol/L (3.5-5.1); Sodium 136 mmol/L (136-145)
[2025-05-13] MEDS: Sodium Bicarbonate Tab 325 MG TAB PO SCH (09:37)
[2025-05-13 13:16] LABS: Anion Gap 12 mmol/L (10-20); BUN (Urea Nitrogen) 68 mg/dL (8.4-25.7); Calc. Creatinine Clearance 11 mL/min (70-130); Calcium 7.4 mg/dL (7.8-10.44); Carbon Dioxide 17 mmol/L (23-31); Chloride 110 mmol/L (98-107); Glucose 101 mg/dL (83-110); Magnesium 1.4 mg/dL (1.6-2.6); Potassium 3.7 mmol/L (3.5-5.1); Sodium 135 mmol/L (136-145)
[2025-05-13] MEDS: Magnesium 2 GM/50 ML(in water) 2 GM in Premix 1 BAG IVPB SCH (18:21)
[2025-05-13] MEDS: Melatonin 3 MG TAB PO PRN (21:24)
[2025-05-14 04:08] LABS: #Basophils Less than 0.03 10x3/uL (0.0-0.2); #Eosinophils Less than 0.03 10x3/uL (0.0-0.7); #Monocytes 0.20 10x3/uL (0.11-0.59); #Neutrophils 8.07 10x3/uL (1.40-6.50); %Basophils 0.1 % (0.0-1.0); %Eosinophils 0.0 % (0.0-10.0); %Lymphocytes 5.2 % (21.0-51.0); %Monocytes 2.3 % (0.0-10.0); %Neutrophils 90.9 % (42.0-75.0); Hematocrit 24.3 % (42.0-52.0); Hemoglobin 8.2 g/dL (14.0-18.0); Mean Corpuscular Hemoglobin 33.3 pg (27.0-31.0); Mean Corpuscular Volume 98.8 fL (78.0-98.0); Platelet Count 53 10x3/uL (130-400); Red Blood Cell (RBC) Count 2.46 mill/uL (4.70-6.10); White Blood Cell (WBC) Count 8.87 10x3/uL (4.8-10.8)
[2025-05-14 04:34] LABS: ALT (SGPT) 14 U/L (Less than 45); AST (SGOT) 23 U/L (11-34); Albumin 1.8 g/dL (3.1-4.5); Alkaline Phosphatase 108 U/L (40-110); Anion Gap 11 mmol/L (10-20); BUN (Urea Nitrogen) 71 mg/dL (8.4-25.7); Bilirubin, Total 0.4 mg/dL (0.3-1.2); Calc. Creatinine Clearance 11 mL/min (70-130); Calcium 7.8 mg/dL (7.8-10.44); Carbon Dioxide 17 mmol/L (23-31); Chloride 111 mmol/L (98-107); Globulin 2.7 g/dL (2.4-3.5); Glucose 97 mg/dL (83-110); Potassium 3.8 mmol/L (3.5-5.1); Sodium 135 mmol/L (136-145)
[2025-05-14] MEDS: Calcitriol 0.25 MCG CAP PO SCH (08:34)
[2025-05-14] MEDS: Ergocalciferol 1.25 MG(50,000 UNITS) CAP PO SCH (08:35)
[2025-05-15] MEDS: Albumin 25% 25 GM (100 mL) BOT IVPB SCH ×2 (00:53→06:27)
[2025-05-15 03:46] LABS: #Basophils Less than 0.03 10x3/uL (0.0-0.2); #Eosinophils Less than 0.03 10x3/uL (0.0-0.7); #Monocytes 0.47 10x3/uL (0.11-0.59); #Neutrophils 9.23 10x3/uL (1.40-6.50); %Basophils 0.1 % (0.0-1.0); %Eosinophils 0.1 % (0.0-10.0); %Lymphocytes 7.7 % (21.0-51.0); %Monocytes 4.4 % (0.0-10.0); %Neutrophils 87.0 % (42.0-75.0); Hematocrit 22.0 % (42.0-52.0); Hemoglobin 7.3 g/dL (14.0-18.0); Mean Corpuscular Hemoglobin 32.9 pg (27.0-31.0); Mean Corpuscular Volume 99.1 fL (78.0-98.0); Platelet Count 50 10x3/uL (130-400); Red Blood Cell (RBC) Count 2.22 mill/uL (4.70-6.10); White Blood Cell (WBC) Count 10.61 10x3/uL (4.8-10.8)
[2025-05-15 03:55] LABS: ALT (SGPT) 13 U/L (Less than 45); AST (SGOT) 24 U/L (11-34); Albumin 2.5 g/dL (3.1-4.5); Alkaline Phosphatase 92 U/L (40-110); Anion Gap 11 mmol/L (10-20); BUN (Urea Nitrogen) 70 mg/dL (8.4-25.7); Bilirubin, Total 0.6 mg/dL (0.3-1.2); Calc. Creatinine Clearance 11 mL/min (70-130); Calcium 8.2 mg/dL (7.8-10.44); Carbon Dioxide 19 mmol/L (23-31); Chloride 111 mmol/L (98-107); Globulin 2.2 g/dL (2.4-3.5); Glucose 77 mg/dL (83-110); Potassium 3.6 mmol/L (3.5-5.1); Sodium 137 mmol/L (136-145)
[2025-05-15 14:14] LABS: Magnesium 1.7 mg/dL (1.6-2.6)
[2025-05-16] MEDS: QUEtiapine 25 MG TAB PO SCH
[2025-05-16 04:35] LABS: #Basophils Less than 0.03 10x3/uL (0.0-0.2); #Eosinophils Less than 0.03 10x3/uL (0.0-0.7); #Monocytes 0.57 10x3/uL (0.11-0.59); #Neutrophils 8.92 10x3/uL (1.40-6.50); %Basophils 0.1 % (0.0-1.0); %Eosinophils 0.2 % (0.0-10.0); %Lymphocytes 6.0 % (21.0-51.0); %Monocytes 5.5 % (0.0-10.0); %Neutrophils 86.6 % (42.0-75.0); Hematocrit 21.9 % (42.0-52.0); Hemoglobin 7.3 g/dL (14.0-18.0); Mean Corpuscular Hemoglobin 34.0 pg (27.0-31.0); Mean Corpuscular Volume 101.9 fL (78.0-98.0); Platelet Count 53 10x3/uL (130-400); Red Blood Cell (RBC) Count 2.15 mill/uL (4.70-6.10); White Blood Cell (WBC) Count 10.30 10x3/uL (4.8-10.8)
[2025-05-16 05:09] LABS: ALT (SGPT) 13 U/L (Less than 45); AST (SGOT) 27 U/L (11-34); Albumin 2.3 g/dL (3.1-4.5); Alkaline Phosphatase 88 U/L (40-110); Anion Gap 16 mmol/L (10-20); BUN (Urea Nitrogen) 67 mg/dL (8.4-25.7); Bilirubin, Total 0.6 mg/dL (0.3-1.2); Calc. Creatinine Clearance 12 mL/min (70-130); Calcium 8.3 mg/dL (7.8-10.44); Carbon Dioxide 18 mmol/L (23-31); Chloride 115 mmol/L (98-107); Globulin 2.2 g/dL (2.4-3.5); Glucose 92 mg/dL (83-110); Potassium 3.6 mmol/L (3.5-5.1); Sodium 145 mmol/L (136-145)
[2025-05-16 05:10] VITALS: BMI 20.4
[2025-05-16 07:01] LABS: Magnesium 1.7 mg/dL (1.6-2.6)
[2025-05-16] MEDS: Hydrocortisone Sod Succ/PF 250 mg/2 ml Vial SLOW IVP SCH (22:08)
[2025-05-17 06:30] LABS: ALT (SGPT) 17 U/L (Less than 45); AST (SGOT) 39 U/L (11-34); Albumin 2.2 g/dL (3.1-4.5); Alkaline Phosphatase 93 U/L (40-110); Anion Gap 18 mmol/L (10-20); BUN (Urea Nitrogen) 61 mg/dL (8.4-25.7); Bilirubin, Total 0.7 mg/dL (0.3-1.2); Calc. Creatinine Clearance 13 mL/min (70-130); Calcium 8.3 mg/dL (7.8-10.44); Carbon Dioxide 17 mmol/L (23-31); Chloride 117 mmol/L (98-107); Globulin 2.3 g/dL (2.4-3.5); Glucose 81 mg/dL (83-110); Potassium 3.4 mmol/L (3.5-5.1); Sodium 149 mmol/L (136-145)
[2025-05-17 07:10] LABS: #Basophils Less than 0.03 10x3/uL (0.0-0.2); #Eosinophils 0.04 10x3/uL (0.0-0.7); #Monocytes 0.88 10x3/uL (0.11-0.59); #Neutrophils 13.02 10x3/uL (1.40-6.50); %Basophils 0.1 % (0.0-1.0); %Eosinophils 0.3 % (0.0-10.0); %Lymphocytes 4.5 % (21.0-51.0); %Monocytes 5.9 % (0.0-10.0); %Neutrophils 87.9 % (42.0-75.0); Hematocrit 23.4 % (42.0-52.0); Hemoglobin 7.7 g/dL (14.0-18.0); Mean Corpuscular Hemoglobin 32.9 pg (27.0-31.0); Mean Corpuscular Volume 100.0 fL (78.0-98.0); Platelet Count 79 10x3/uL (130-400); Red Blood Cell (RBC) Count 2.34 mill/uL (4.70-6.10); White Blood Cell (WBC) Count 14.80 10x3/uL (4.8-10.8)
[2025-05-17 15:52] VITALS: BMI 20.9
[2025-05-18 04:16] LABS: #Basophils Less than 0.03 10x3/uL (0.0-0.2); #Eosinophils 0.07 10x3/uL (0.0-0.7); #Monocytes 1.07 10x3/uL (0.11-0.59); #Neutrophils 12.01 10x3/uL (1.40-6.50); %Basophils 0.1 % (0.0-1.0); %Eosinophils 0.5 % (0.0-10.0); %Lymphocytes 5.2 % (21.0-51.0); %Monocytes 7.6 % (0.0-10.0); %Neutrophils 84.8 % (42.0-75.0); Hematocrit 22.6 % (42.0-52.0); Hemoglobin 7.4 g/dL (14.0-18.0); Mean Corpuscular Hemoglobin 33.3 pg (27.0-31.0); Mean Corpuscular Volume 101.8 fL (78.0-98.0); Platelet Count 84 10x3/uL (130-400); Red Blood Cell (RBC) Count 2.22 mill/uL (4.70-6.10); White Blood Cell (WBC) Count 14.14 10x3/uL (4.8-10.8)
[2025-05-18 04:38] LABS: ALT (SGPT) 16 U/L (Less than 45); AST (SGOT) 46 U/L (11-34); Albumin 2.0 g/dL (3.1-4.5); Alkaline Phosphatase 91 U/L (40-110); Anion Gap 13 mmol/L (10-20); BUN (Urea Nitrogen) 56 mg/dL (8.4-25.7); Bilirubin, Total 0.7 mg/dL (0.3-1.2); Calc. Creatinine Clearance 15 mL/min (70-130); Calcium 7.8 mg/dL (7.8-10.44); Carbon Dioxide 19 mmol/L (23-31); Chloride 119 mmol/L (98-107); Globulin 2.2 g/dL (2.4-3.5); Glucose 105 mg/dL (83-110); Potassium 3.2 mmol/L (3.5-5.1); Sodium 148 mmol/L (136-145)
[2025-05-18] MEDS: QUEtiapine 25 MG TAB PO SCH (19:36)
[2025-05-19 04:26] VITALS: TEMP 97.9
[2025-05-19 04:43] LABS: #Basophils Less than 0.03 10x3/uL (0.0-0.2); #Eosinophils 0.09 10x3/uL (0.0-0.7); #Monocytes 1.29 10x3/uL (0.11-0.59); #Neutrophils 12.65 10x3/uL (1.40-6.50); %Basophils 0.1 % (0.0-1.0); %Eosinophils 0.6 % (0.0-10.0); %Lymphocytes 5.8 % (21.0-51.0); %Monocytes 8.5 % (0.0-10.0); %Neutrophils 83.9 % (42.0-75.0); Hematocrit 22.1 % (42.0-52.0); Hemoglobin 7.0 g/dL (14.0-18.0); Mean Corpuscular Hemoglobin 33.2 pg (27.0-31.0); Mean Corpuscular Volume 104.7 fL (78.0-98.0); Platelet Count 84 10x3/uL (130-400); Red Blood Cell (RBC) Count 2.11 mill/uL (4.70-6.10); White Blood Cell (WBC) Count 15.09 10x3/uL (4.8-10.8)
[2025-05-19 05:00] LABS: ALT (SGPT) 13 U/L (Less than 45); AST (SGOT) 25 U/L (11-34); Albumin 1.8 g/dL (3.1-4.5); Alkaline Phosphatase 91 U/L (40-110); Anion Gap 12 mmol/L (10-20); BUN (Urea Nitrogen) 61 mg/dL (8.4-25.7); Bilirubin, Total 0.7 mg/dL (0.3-1.2); Calc. Creatinine Clearance 16 mL/min (70-130); Calcium 7.8 mg/dL (7.8-10.44); Carbon Dioxide 20 mmol/L (23-31); Chloride 117 mmol/L (98-107); Globulin 2.1 g/dL (2.4-3.5); Glucose 119 mg/dL (83-110); Potassium 3.2 mmol/L (3.5-5.1); Sodium 146 mmol/L (136-145)
[2025-05-19] MEDS: Potassium Chloride 20 MEQ in Premix 1 BAG IVPB SCH (06:39)
== END 2025-05-19 15:32 | disposition hospice, inpatient (51) | DRG 871 ==
LOC: ERS 14:51 → CCU 18:27
PROVIDERS: ADMIT Family Medicine; ATTEND Family Medicine
PROC: 3E033XZ Introduction of Vasopressor into Peripheral Vein, Percutaneous Approach (ICD-10-PCS; principal; 2025-05-08)
PROC: 3E03329 Introduction of Other Anti-infective into Peripheral Vein, Percutaneous Approach (ICD-10-PCS; 2025-05-08)
PROC: 30233J1 Transfusion of Nonautologous Serum Albumin into Peripheral Vein, Percutaneous Approach (ICD-10-PCS; 2025-05-08)
DX: A41.9 Sepsis, unspecified organism (principal); G93.41 Metabolic encephalopathy; R65.21 Severe sepsis with septic shock; N17.9 Acute kidney failure, unspecified; N39.0 Urinary tract infection, site not specified; N18.5 Chronic kidney disease, stage 5; N25.81 Secondary hyperparathyroidism of renal origin; I50.32 Chronic diastolic (congestive) heart failure; I13.0 Hypertensive heart and chronic kidney disease with heart failure and stage 1 through stage 4 chronic kidney disease, or unspecified chronic kidney disease; I48.21 Permanent atrial fibrillation; I25.10 Atherosclerotic heart disease of native coronary artery without angina pectoris; E87.5 Hyperkalemia; E88.09 Other disorders of plasma-protein metabolism, not elsewhere classified; J44.9 Chronic obstructive pulmonary disease, unspecified; Z79.899 Other long term (current) drug therapy; Z98.890 Other specified postprocedural states; D63.1 Anemia in chronic kidney disease; Z51.5 Encounter for palliative care; Z66 Do not resuscitate; D69.6 Thrombocytopenia, unspecified; I95.1 Orthostatic hypotension
CPT/HCPCS: 36415; 36416; 36556; 51702; 71045; 71250; 74176; 74177; 80053; 81001; 82088; 82306; 82533; 82805; 83605; 83735; 83970; 84100; 84244; 84443; 84484; 85025; 87040; 87077; 87086; 87149; 87186; 93005; 93306; 94640; 96360; 96365; 96366; 96368; 96375; 97139; J0613; J0696; J1644; J1720; J1815; J2185; J2405; J2470; J2543; J3010; J3373; J3475; J3480; J7030; J7070; J7120; J7620; J7999; P9047

== ENCOUNTER 2025-05-19 16:03 | Inpatient (IN) | payer OTHER ==
[2025-05-19] MEDS ORDERED: Scopolamine 1 mg/72 hour Patch TOP PRN (16:45)
[2025-05-19] MEDS ORDERED: Acetaminophen 325 MG TAB PO PRN (16:45)
[2025-05-19 16:51] VITALS: BMI 14.8
[2025-05-19] MEDS: Ondansetron PF 4 MG/2 ML Vial IVP PRN (19:26)
[2025-05-19] MEDS: diphenhydrAMINE 50 MG/ML VIAL IVP PRN (19:26)
[2025-05-19 19:35] VITALS: TEMP 97.3
[2025-05-20 08:28] VITALS: BP 88/57
[2025-05-20] MEDS ORDERED: Furosemide 20 MG (2 mL) VIAL SLOW IVP SCH (13:30)
== END 2025-05-20 12:39 | disposition expired | DRG 951 ==
LOC: CCU 16:03 → MSONC 18:16
PROVIDERS: ADMIT Internal Medicine Nephrology; ATTEND Internal Medicine Nephrology
DX: Z51.5 Encounter for palliative care (principal); R65.21 Severe sepsis with septic shock; G93.41 Metabolic encephalopathy; N39.0 Urinary tract infection, site not specified; N17.9 Acute kidney failure, unspecified; R64 Cachexia; I25.10 Atherosclerotic heart disease of native coronary artery without angina pectoris; I48.0 Paroxysmal atrial fibrillation; J44.9 Chronic obstructive pulmonary disease, unspecified; E87.5 Hyperkalemia; N32.0 Bladder-neck obstruction; N40.0 Benign prostatic hyperplasia without lower urinary tract symptoms; I95.9 Hypotension, unspecified; E16.2 Hypoglycemia, unspecified; E88.09 Other disorders of plasma-protein metabolism, not elsewhere classified; E78.5 Hyperlipidemia, unspecified; Z95.0 Presence of cardiac pacemaker; Z98.890 Other specified postprocedural states
CPT/HCPCS: J1200; J2060; J2270; J2405